=== PATIENT | male | born 1940 | race Caucasian/White ===

== ENCOUNTER 2023-01-17 23:42 | Emergency (ER) | payer MEDICARE, SELFPAY ==
--- NOTE | ~2023-01-17 | XR_ITS ---
EXAMINATION: XR CHEST CLINICAL INFORMATION: Epigastric pain COMPARISON: 09/18/2014 TECHNIQUE: 2 views of the chest were obtained. FINDINGS: Lung volumes are symmetric. Scattered calcifications are redemonstrated bilaterally which are most suggestive of calcified pleural plaques. No focal consolidation is seen. No evidence of pneumothorax, pleural effusion, or pulmonary edema. Cardiac size is within normal limits. Calcification is present at the aortic arch. No acute osseous findings are seen. XR/XR chest 2V IMPRESSION: No acute cardiopulmonary findings. 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
--- NOTE | ~2023-01-17 | CT_ITS ---
EXAMINATION: CT ABDOMEN AND PELVIS WITHOUT CONTRAST CLINICAL INFORMATION: Right-sided abdominal pain COMPARISON: None available. TECHNIQUE: Multidetector volumetric imaging was performed from the superior aspect of the liver through the pubic symphysis. Sagittal and coronal reformatted images were obtained on the technologist's workstation. This CT examination was performed using dose optimization techniques as appropriate, variously including the following: *Automated exposure control *Adjustment of mA and/or kV according to patient size (this includes techniques or standardized protocols for targeted exams where dose is matched to indication/reason for exam; i.e. extremities or head) *Use of iterative reconstruction technique DLP: 849 mGy-cm FINDINGS: LUNG BASES: Scattered partially calcified pleural plaques noted. There is mild nodularity bilaterally suggesting impacted airways. Coronary artery calcifications are present. LIVER, GALLBLADDER, AND BILIARY TREE: The liver is normal in size, shape, and attenuation. No focal hepatic lesion or biliary ductal dilatation is identified on this noncontrast exam. The gallbladder is unremarkable with no evidence of radiopaque gallstones, gallbladder wall thickening, or obvious pericholecystic inflammatory changes. PANCREAS: Partially atrophic. SPLEEN: Unremarkable. ADRENAL GLANDS: Unremarkable. KIDNEYS AND URETERS: No hydronephrosis or obstructing calculus bilaterally. Left renal cysts noted; no follow-up recommended. BLADDER: Unremarkable. GASTROINTESTINAL TRACT: No evidence of bowel obstruction. Colonic diverticulosis is noted. No significant bowel wall thickening is seen. The appendix is unremarkable. No free fluid or free air is seen. ABDOMINAL WALL: Small fat-containing inguinal hernias. Rectus diastases noted including focal small bowel protrusion at the umbilicus. LYMPH NODES: Normal. VASCULAR: There is atherosclerotic calcification along the aorta and iliac arteries. 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 PELVIC VISCERA: Enlarged prostate gland measures approximately 5.7 cm in transverse dimension. OSSEOUS STRUCTURES: Degenerative changes are noted in the spine. 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 CT/CT abdomen pelvis wo IV con IMPRESSION: No acute findings identified in the abdomen/pelvis. Colonic diverticulosis without diverticulitis. Enlarged prostate gland.
[2023-01-17 23:54] VITALS: BP 133/69; PULSE 65; RESP 20; TEMP 36.4; O2SAT 98; BMI 27.1
--- NOTE | 2023-01-17 23:59 | ECG_ITS ---
Test Reason : CHEST PAIN Blood Pressure : / mmHG Vent. Rate : 065 BPM Atrial Rate : 065 BPM P-R Int : 210 ms QRS Dur : 096 ms QT Int : 424 ms P-R-T Axes : 027 -40 032 degrees QTc Int : 440 ms Sinus rhythm with 1st degree A-V block with with junctional escape beat Left axis deviation Inferior infarct , age undetermined Abnormal ECG No previous ECGs available Referred By: Generic ED Physician Electronically Signed By:LISA JACKSON MD
[2023-01-18 00:20] LABS: MANUAL DIFF FLAG NO
[2023-01-18 00:23] LABS: Basophils Absolute Auto 0.1 X10*3/uL (0.0-0.2); Basophils Percent Auto 0.8 % (0-2); Eosinophils Absolute Auto 0.3 X10*3/uL (0.0-0.4); Eosinophils Percent Auto 5.5 % (0-4); Hematocrit 37.2 % (42.0-52.0); Hemoglobin 12.2 g/dl (14.0-18.0); Imm Gran Abs Auto 0.02 X10*3/uL (0.00-0.03); Imm Gran Pct Auto 0.3 % (0.0-0.4); Lymphocytes Percent Auto 49.4 % (20-40); Mean Corpuscular HGB Conc 32.8 g/dl (31.0-36.0); Mean Corpuscular Volume 88.4 fL (80.0-98.0); Mean Platelet Volume 8.3 fL (9.4-12.4); Monocytes Absolute Auto 0.5 X10*3/uL (0.1-1.2); Monocytes Percent Auto 8.7 % (2-11); Neutrophils Absolute Auto 2.1 x10*3/uL (2.0-8.3); Neutrophils Percent Auto 35.3 % (45-73); Platelet Count 293 X10*3/uL (160-400); Red Blood Count 4.21 X10*6/uL (4.60-5.80); Red Cell Distribution Width 15.2 % (11.0-16.0)
[2023-01-18 00:38] VITALS: BP 127/67; PULSE 76; RESP 19; TEMP 37.1; O2SAT 97
[2023-01-18 00:43] LABS: Alanine Aminotransferase 10 U/L (0-40); Albumin Level 4.3 g/dL (3.5-5.0); Alkaline Phosphatase 95 U/L (39-117); Anion Gap 17 (12-20); Aspartate Amino Transferase 13 U/L (5-37); Bilirubin Direct 0.2 mg/dL (0.0-0.5); Bilirubin Total 0.6 mg/dL (0.0-1.0); Blood Urea Nitrogen 22 mg/dL (9-16); Calcium 9.2 mg/dL (8.4-10.2); Carbon Dioxide 22 mmol/L (22-29); Chloride 103 mmol/L (96-108); Creatinine Clr Calc Pharmacy 42.4; Estimated Glomerular Filt Rate 50; Glucose Random 159 mg/dL (60-115); Lipase 24 U/L (8-78); Potassium 4.9 mmol/L (3.3-5.1); Sodium 137 mmol/L (135-145); Total Protein 8.2 g/dL (6.5-8.0)
[2023-01-18 00:50] LABS: Troponin-I High Sensitivity 2.8 ng/L (<3.5-35.0)
--- NOTE | 2023-01-18 00:58 | ED.ABDPAIN ---
HPI - Abdominal Pain General Chief Complaint: Abdominal Pain Stated Complaint: Back/Abdominal Pain Time Seen by Provider: 01/18/23 00:49 Source: patient and family (Spouse) Mode of arrival: ambulatory Limitations: no limitations History of Present Illness HPI narrative: 82-year-old male came in for evaluation of upper abdominal pain for 2 day. Pain is intermittent described as crampy pain mostly to the right upper quadrant area, patient had similar pain about 40 years ago was told his gallbladder, abdominal pain started today after drinking milk and eating peanut butter sandwich. Pain is not associated with nausea or vomiting, no shortness of breath, associated with chest pain burning sensation, no sick contact, no diarrhea normal bowel movement was this morning. Related Data Allergies Allergy/AdvReac Type Severity Reaction Status Date / Time No Known Allergies Allergy Verified 01/17/23 23:57 Review of Systems Review of Systems All other systems are reviewed and are negative Constitutional: Reports as per HPI and Reports no additional constitutional complaints Eyes: Reports as per HPI and Reports no additional eye complaints Reports system reviewed and no additional complaints, except as documented Cardiovascular: Reports as per HPI and Reports no additional cardiovascular complaints Respiratory: Reports as per HPI and Reports no additional respiratory complaints Gastrointestinal: Reports as per HPI and Reports no additional gastrointestinal complaints Genitourinary: Reports no additional female genitourinary complaints Musculoskeletal: Reports no additional musculoskeletal complaints Skin/Breast: Reports system reviewed and no additional complaints, except as docu Psychiatric: Reports no additional psychiatric complaints Endocrine: Reports no additional endocrine complaints Hematologic/Lymphatic: Reports no additional hematologic/lymphatic complaints Allergic/Immunologic: Reports no additional allergic/immunologic complaints Reports system reviewed and no additional complaints, except as documented and Reports Abnormal speech present [facility] Social History Social History Advance Directives: No Advance Directives Information Provided: No Physical Exam ED Vital Signs: Vital Signs - 24 hr 01/17/23 23:54 01/18/23 00:38 01/18/23 03:34 Temperature 97.6 F 98.7 F Pulse Rate 65 76 59 Respiratory Rate 20 19 13 Blood Pressure 133/69 127/67 109/62 Pulse Oximetry 98 97 97 Oxygen Delivery Method Room Air Room Air Room Air BMI result Body Mass Index 27.1 Vital signs have been reviewed as appeared to be correct. Blood pressure normal. Heart rate normal. Respiration rate normal. Temperature normal. Oxygen saturation normal. Appearance: Alert. Oriented X3. No acute distress. Head: Normal external exam. Normocephalic. Atraumatic. No Steel signs noted. No raccoon eyes noted Eyes: PERRLA. EOMI. Conjunctiva and sclera normal. Eyelids normal. ENT: TM's Normal. Pharynx normal. Uvula midline. Moist mucous membranes. No trismus noted. No drooling noted. No muffled voice noted. Neck: Normal inspection. Neck supple. FROM. No adenopathy. Thyroid Normal. No meningeal signs. No neck mass noted. CVS: Normal heart rate and rhythm. Heart sound normal. No murmurs noted. Pulses normal throughout. Respiratory: No respiratory distress. Painless inspiration. Breath sounds normal. No wheezes/rales/rhonchi noted. Chest nontender. No accessory muscle usage noted or decreased air movement noted. Abdomen: Soft and nontender. Bowel sounds normal in all 4 quadrants. No distention noted. No organomegaly noted. No visible injury noted. Back: No CVA tenderness. Full range of motion noted. Skin: Skin warm and dry. Normal skin color. Normal skin turgor. No rashes/lesions/lacerations noted. Extremities: No lower extremity edema. Extremities exhibit normal range of motion. Extremities nontender. Neuro: Oriented X 3. Cranial nerve exam: II-XII are grossly intact No motor deficit. No sensory deficit. Reflexes normal. Course Course Course Narrative: Right-sided abdominal pain, unremarkable labs, non revealing CT of the abdomen and pelvis, patient has no symptoms now able to tolerate p.o. intake in the emergency department. Medical Decision Making Differential Diagnosis Differential Diagnoses: The differential diagnosis associated with the presentation includes (Appendicitis, cholecystitis, pancreatitis, colitis, diverticulitis, electrolytes abnormalities, severe anemia, kidney stones, UTI.) Admission/Observation Consideration of admission/observation: Escalation of care including admission/observation considered Lab Data MDM Lab Attestation statement: I reviewed the patient's lab results. 01/18/23 00:15 01/18/23 00:15 Labs: Lab Results 01/18/23 01/18/23 01/18/23 Range/Units 00:15 00:15 00:15 WBC 6.0 (4.8-10.8) X10*3/uL RBC 4.21 L (4.60-5.80) X10*6/uL Hgb 12.2 L (14.0-18.0) g/dl Hct 37.2 L (42.0-52.0) % MCV 88.4 (80.0-98.0) fL MCH 29.0 (27.0-33.0) pg MCHC 32.8 (31.0-36.0) g/dl RDW 15.2 (11.0-16.0) % Plt Count 293 (160-400) X10*3/uL MPV 8.3 L (9.4-12.4) fL Immature Gran % (Auto) 0.3 (0.0-0.4) % Neut % (Auto) 35.3 L (45-73) % Lymph % (Auto) 49.4 H (20-40) % [place] % (Auto) 8.7 (2-11) % Eos % (Auto) 5.5 H (0-4) % Baso % (Auto) 0.8 (0-2) % Lymph # (Auto) 3.0 (1.2-4.9) X10*3/uL [place] # (Auto) 0.5 (0.1-1.2) X10*3/uL Eos # (Auto) 0.3 (0.0-0.4) X10*3/uL Baso # (Auto) 0.1 (0.0-0.2) X10*3/uL Abs Immat Gran (auto) 0.02 (0.00-0.03) X10*3/uL Absolute Neuts (auto) 2.1 (2.0-8.3) x10*3/uL Absolute Nucleated RBC 0.000 (0.0-0.012) X10*3/uL Nucleated RBC % (auto) 0.0 (0.0-0.2) /100WBC Sodium 137 (135-145) mmol/L Potassium 4.9 (3.3-5.1) mmol/L Chloride 103 (96-108) mmol/L Carbon Dioxide 22 (22-29) mmol/L Anion Gap 17 (12-20) BUN 22 H (9-16) mg/dL Creatinine 1.36 (0.5-1.4) mg/dL Estim Creat Clear Calc 42.4 Estimated GFR 50 Random Glucose 159 H (60-115) mg/dL Calcium 9.2 (8.4-10.2) mg/dL Total Bilirubin 0.6 (0.0-1.0) mg/dL Direct Bilirubin 0.2 (0.0-0.5) mg/dL AST 13 (5-37) U/L ALT 10 (0-40) U/L Alkaline Phosphatase 95 (39-117) U/L Troponin I High Sens 2.8 (<3.5-35.0) ng/L Total Protein 8.2 H (6.5-8.0) g/dL Albumin 4.3 (3.5-5.0) g/dL Lipase 24 (8-78) U/L Urine Color Urine Appearance Urine pH (5.0-9.0) Ur Specific [place] (1.005-1.025) Urine Protein (Neg-Trace) mg/dL Urine Glucose (UA) (Negative) mg/dL Urine Ketones (Negative) mg/dL Urine Blood (Negative) Urine Nitrite (Negative) Ur Leukocyte Esterase (Negative) Urine RBC (0-2) /HPF Urine WBC (0-5) /HPF Ur Squamous Epith Cells (0-2) /HPF Urine Bacteria (None Seen) Hyaline Casts (0-2) /LPF 01/18/23 Range/Units 03:58 WBC (4.8-10.8) X10*3/uL RBC (4.60-5.80) X10*6/uL Hgb (14.0-18.0) g/dl Hct (42.0-52.0) % MCV (80.0-98.0) fL MCH (27.0-33.0) pg MCHC (31.0-36.0) g/dl RDW (11.0-16.0) % Plt Count (160-400) X10*3/uL MPV (9.4-12.4) fL Immature Gran % (Auto) (0.0-0.4) % Neut % (Auto) (45-73) % Lymph % (Auto) (20-40) % [place] % (Auto) (2-11) % Eos % (Auto) (0-4) % Baso % (Auto) (0-2) % Lymph # (Auto) (1.2-4.9) X10*3/uL [place] # (Auto) (0.1-1.2) X10*3/uL Eos # (Auto) (0.0-0.4) X10*3/uL Baso # (Auto) (0.0-0.2) X10*3/uL Abs Immat Gran (auto) (0.00-0.03) X10*3/uL Absolute Neuts (auto) (2.0-8.3) x10*3/uL Absolute Nucleated RBC (0.0-0.012) X10*3/uL Nucleated RBC % (auto) (0.0-0.2) /100WBC Sodium (135-145) mmol/L Potassium (3.3-5.1) mmol/L Chloride (96-108) mmol/L Carbon Dioxide (22-29) mmol/L Anion Gap (12-20) BUN (9-16) mg/dL Creatinine (0.5-1.4) mg/dL Estim Creat Clear Calc Estimated GFR Random Glucose (60-115) mg/dL Calcium (8.4-10.2) mg/dL Total Bilirubin (0.0-1.0) mg/dL Direct Bilirubin (0.0-0.5) mg/dL AST (5-37) U/L ALT (0-40) U/L Alkaline Phosphatase (39-117) U/L Troponin I High Sens (<3.5-35.0) ng/L Total Protein (6.5-8.0) g/dL Albumin (3.5-5.0) g/dL Lipase (8-78) U/L Urine Color Yellow Urine Appearance Clear Urine pH 5.5 (5.0-9.0) Ur Specific [place] 1.020 (1.005-1.025) Urine Protein Negative (Neg-Trace) mg/dL Urine Glucose (UA) >=1000 H (Negative) mg/dL Urine Ketones Negative (Negative) mg/dL Urine Blood Negative (Negative) Urine Nitrite Negative (Negative) Ur Leukocyte Esterase Negative (Negative) Urine RBC 0-2 (0-2) /HPF Urine WBC 0-5 (0-5) /HPF Ur Squamous Epith Cells 0-2 (0-2) /HPF Urine Bacteria None Seen (None Seen) Hyaline Casts 3-5 (0-2) /LPF Independent Interpretation I performed an independent interpretation of an: CT Scan (Abdomen and pelvis: No acute intra-abdominal pathology.) Radiology Impression Discussion of test interpretation with radiology: I have reviewed the radiologist's reading. Discharge Plan Discharge Clinical Impression: Abdominal pain Patient Disposition: Home, Self-Care Instructions: Abdominal Pain (ED) Referrals: Penelope Fletcher [employer] [Primary Care Provider] -
[2023-01-18 03:34] VITALS: BP 109/62; PULSE 59; RESP 13; O2SAT 97
--- NOTE | 2023-01-18 03:49 | PC.NURSE ---
pt waiting patiently for ultrasound which is schedule at 0700
[2023-01-18 04:26] LABS: Appearance Urine Clear; Color Urine Yellow; Glucose Urine UA >=1000 mg/dL (Negative); Leukocyte Esterase Urine Negative (Negative); Nitrite Urine Negative (Negative); PH 5.5 (5.0-9.0); UMIC TRIGGER UACC YES; Urine Blood Negative (Negative); Urine Ketones Negative (Negative); Urine Protein Negative (Neg-Trace)
[2023-01-18 04:31] LABS: Bacteria Urine None Seen (None Seen); RBC Urine 0-2 /HPF (0-2); Squamous Epithelial Cell Urine 0-2 /HPF (0-2); WBC Urine 0-5 /HPF (0-5)
== END 2023-01-18 06:00 | disposition home or self-care (01) ==
PROVIDERS: Emergency Provider Emergency Medicine; PCP Nurse Practitioner Family
DX: R10.9 Unspecified abdominal pain (principal)
CPT/HCPCS: 36415; 71046; 74176; 80048; 80076; 81001; 83690; 84484; 85025; 93005; 99284

== ENCOUNTER 2023-05-24 18:16 | Emergency (ER) | payer MEDICARE, SELFPAY ==
[2023-05-24 18:35] VITALS: BP 104/69; PULSE 127; RESP 14; TEMP 36.8; O2SAT 98; BMI 26.8
[2023-05-24 19:16] VITALS: BP 118/83; PULSE 122; RESP 16; TEMP 36.9; O2SAT 97
--- NOTE | 2023-05-24 20:12 | MHC.EDTECH ---
This tech assumed care of patient at 1900, hourly rounds and vitals completed. Blood Cultures were obtained and sent to lab.Patient unable to give a urine sample at this time will re-attempt.
[2023-05-24 21:43] VITALS: BP 128/84; PULSE 97; RESP 18; TEMP 37.6; O2SAT 98
--- NOTE | 2023-05-24 21:44 | MHC.EDTECH ---
Hourly rounds and vitals completed, patient's temp is up to 99.7 RN Chong was made aware. Family at bedside and call ledesma within reach
--- NOTE | 2023-05-24 22:53 | ED.ABDPAIN ---
HPI - Abdominal Pain General Chief Complaint: Abdominal Pain Stated Complaint: constipation Time Seen by Provider: 05/24/23 19:26 Source: patient and family Mode of arrival: ambulatory History of Present Illness HPI narrative: This is an 83-year-old male who reports 6 days without a bowel movement which is not entirely new to him, however patient states that he cannot sit and that his known hemorrhoids are significantly inflamed and attempting to have a bowel movement makes it worse. He denies any associated fevers, chills, nausea or vomiting. Patient did tolerate lunch. Related Data Previous Rx's Medication Instructions Recorded amoxicillin 875 mg-potassium 1 tab PO BID 7 days #14 tabs 05/24/23 clavulanate 125 mg tablet Allergies Allergy/AdvReac Type Severity Reaction Status Date / Time No Known Allergies Allergy Verified 01/17/23 23:57 Review of Systems Review of Systems Pertinent positives and negatives as stated in HPI PMFSH Past Medical History Source: nursing notes reviewed Social History Social History Alcohol intake: never Smoked in Last 30 Days: No Use of substances other than those prescribed or required for medical reasons: No Advance Directives: No Advance Directives Information Provided: No Physical Exam ED Vital Signs: Vital Signs - 24 hr 05/24/23 18:35 05/24/23 19:16 05/24/23 21:43 Temperature 98.3 F 98.5 F 99.7 F Pulse Rate 127 H 122 H 97 Respiratory Rate 14 16 18 Blood Pressure 104/69 118/83 128/84 Pulse Oximetry 98 97 98 Oxygen Delivery Method Room Air Room Air 05/24/23 23:14 Temperature 99.2 F Pulse Rate 109 H Respiratory Rate 18 Blood Pressure 146/74 H Pulse Oximetry 98 Oxygen Delivery Method Room Air BMI result Body Mass Index 26.8 VITAL SIGNS: Reviewed. GENERAL: Well developed, well nourished, in no acute distress. HEAD: Normocephalic/atraumatic EYES: PERRLA, EOMI EARS: Ext canals without abnormality NOSE: Nares patent bilateral OROPHARYNX: no oral lesions noted, posterior pharynx clear NECK: Supple, no adenopathy LUNGS: Normal breath sounds. No adventitious sounds or accessory muscle use. SpO2<98> CARDIOVASCULAR: Regular rate and rhythm without noted murmurs ABDOMEN: Soft, mild tenderness in left lower quadrant, non-distended with bowel sounds. MUSCULOSKELETAL: No tenderness, deformities, or effusions noted on gross inspection. EXTREMITIES: No cyanosis, clubbing or edema. SKIN: Inspection of the skin reveals no rashes NEUROLOGIC: Alert and oriented x 4. Strength and sensation to light touch were grossly intact x 4. Procedures Rectal Disimpaction Time out performed rectal disimpaction: No Indication: fecal impaction Procedural Sedation: No Sedation/Analgesia: none Technique: manual disimpaction with gloved finger Result: significant stool output Patient Tolerated Procedure: well Complications: bleeding (Trace hemorrhoidal bleeding with the procedure) Medical Decision Making Medical Decision Making MDM Narrative: 83-year-old male with history and clinical presentation, DDX: Constipation, Diverticulitis, obstruction, renal colic I reviewed all investigations and hematologic indices demonstrate a leukocytosis with left shift, stable normocytic anemia and no thrombocytopenia. Chemistry indices without JAMAL and no electrolyte or liver enzyme abnormalities. CT scan demonstrates stercoral proctitis. There is a leukocytosis without elevated temperature and will be treated with antibiotics at this time. Manual disimpaction was conducted and there was removal of significant amount of stool from the rectal vault with trace hemorrhoidal bleeding that was transient, will follow up with enema and see if more stool can be evacuated. Patient was able to tolerate a 1000 mL of enema solution, he was able to evacuate copious amounts of stool matter and states that he feels much better and wishes to go home. Heart rate has improved, he will be given initial antibiotics here and then discharged with remaining course and given strict return precautions and instructions to add MiraLax to his bowel regimen. Differential Diagnosis Differential Diagnoses: The differential diagnosis associated with the presentation includes Please see the discussion above Admission/Observation Consideration of admission/observation: Escalation of care including admission/observation considered Please see the discussion above Lab Data MDM Lab Attestation statement: I reviewed the patient's lab results. Please see the discussion above 05/24/23 18:49 05/24/23 18:49 Labs: Lab Results 05/24/23 Range/Units 18:49 WBC 12.7 H (4.8-10.8) X10*3/uL RBC 4.56 L (4.60-5.80) X10*6/uL Hgb 13.2 L (14.0-18.0) g/dl Hct 39.6 L (42.0-52.0) % MCV 86.8 (80.0-98.0) fL MCH 28.9 (27.0-33.0) pg MCHC 33.3 (31.0-36.0) g/dl RDW 16.1 H (11.0-16.0) % Plt Count 305 (160-400) X10*3/uL MPV 8.3 L (9.4-12.4) fL Immature Gran % (Auto) 0.6 H (0.0-0.4) % Neut % (Auto) 74.4 H (45-73) % Lymph % (Auto) 18.3 L (20-40) % [place] % (Auto) 4.7 (2-11) % Eos % (Auto) 1.6 (0-4) % Baso % (Auto) 0.4 (0-2) % Lymph # (Auto) 2.3 (1.2-4.9) X10*3/uL [place] # (Auto) 0.6 (0.1-1.2) X10*3/uL Eos # (Auto) 0.2 (0.0-0.4) X10*3/uL Baso # (Auto) 0.1 (0.0-0.2) X10*3/uL Abs Immat Gran (auto) 0.07 H (0.00-0.03) X10*3/uL Absolute Neuts (auto) 9.5 H (2.0-8.3) x10*3/uL Absolute Nucleated RBC 0.000 (0.0-0.012) X10*3/uL Nucleated RBC % (auto) 0.0 (0.0-0.2) /100WBC Sodium 136 (135-145) mmol/L Potassium 4.5 (3.3-5.1) mmol/L Chloride 102 (96-108) mmol/L Carbon Dioxide 20 L (22-29) mmol/L Anion Gap 19 (12-20) BUN 21 H (9-16) mg/dL Creatinine 1.19 (0.5-1.4) mg/dL Estim Creat Clear Calc 47.7 Estimated GFR 58 Random Glucose 179 H (60-115) mg/dL Calcium 9.5 (8.4-10.2) mg/dL Magnesium 2.3 (1.6-2.6) mg/dL Total Bilirubin 0.7 (0.0-1.0) mg/dL Direct Bilirubin 0.3 (0.0-0.5) mg/dL AST 15 (5-37) U/L ALT 10 (0-40) U/L Alkaline Phosphatase 95 (39-117) U/L Total Protein 8.3 H (6.5-8.0) g/dL Albumin 4.4 (3.5-5.0) g/dL Lipase 15 (8-78) U/L Independent Interpretation I performed an independent interpretation of an: EKG Interpretation: Sinus tachycardia with first-degree AV block (at baseline), no STEMI, HR-109, QRS/QTC are within normal limits. Radiology Impression Discussion of test interpretation with radiology: I have reviewed the radiologist's reading. External Record Review External record reviewed: Outpatient record and Prior outpatient radiology Medications Administered Discontinued Medications Generic Name Dose Route Start Last Admin Trade Name Freq PRN Reason Stop Dose Admin Lidocaine HCl 10 ml 05/24/23 20:29 05/24/23 21:45 Lidocaine Hcl 2 % Urojet 10 Ml Jel.Pf.Lou TOPICAL 05/24/23 20:30 10 ml ONCE ONE Administration Discharge Plan Discharge Clinical Impression: Constipation, Stercoral colitis Patient Disposition: Home, Self-Care Instructions: Constipation (ED), High Fiber Diet (ED) Additional Instructions: 1. Resume all home medications as prescribed. 2. Recommend that you add MiraLax to your medications that you take for constipation. 3. Complete the entire course of antibiotics as provided. 4. Follow-up with your primary care doctor on Saturday morning. Do not hesitate to return to the emergency room should you develop significant rectal bleeding, severe up Doppler rule pain. Prescriptions: New amoxicillin-pot clavulanate 875-125 mg tablet 1 tab PO BID 7 Days Qty: 14 0RF Referrals: Penelope Fletcher NP [Primary Care Provider] -
[2023-05-24 23:14] VITALS: BP 146/74; PULSE 109; RESP 18; TEMP 37.3; O2SAT 98
--- NOTE | 2023-05-24 23:14 | MHC.EDTECH ---
Hourly rounds and vitals completed, patient's temp is 99.2 and heart rate is 109 RN Karen aware. Patient ambulated to bathroom with a steady gait. patient stated I had a huge bowel movement I'm empty . RN was made aware
== END 2023-05-25 00:36 | disposition home or self-care (01) ==
PROVIDERS: Emergency Provider Student in an Organized Health Care Education/Training Program; PCP Nurse Practitioner Family
DX: K59.00 Constipation, unspecified (principal); K62.6 Ulcer of anus and rectum; K57.30 Diverticulosis of large intestine without perforation or abscess without bleeding
CPT/HCPCS: 36415; 74176; 80048; 80076; 83690; 83735; 85025; 87040; 93005; 99284; 99285

== ENCOUNTER 2023-08-06 17:36 | Emergency (ER) | payer MEDICARE, SELFPAY ==
[2023-08-06 17:56] VITALS: BP 150/66; PULSE 72; RESP 18; TEMP 36.8; O2SAT 96; BMI 27.6
--- NOTE | 2023-08-06 18:00 | ED_ITS ---
HPI - General Adult General Chief complaint: Eye Problems Stated complaint: right pain swollen Time Seen by Provider: 08/06/23 19:29 Source: patient Mode of arrival: ambulatory Limitations: no limitations History of Present Illness HPI narrative: Patient is an 83 old male presents emergency department for evaluation of double vision in blood to the right eye. He states that approximately 17:00, he was looking down while eating dinner when he suddenly felt as though he was seeing double and felt pressure to that eye. He does state that just prior to this he was taking a nap on the couch and she was lying his face down on the couch. He reports that he takes a baby aspirin daily, and does state that he had lens implants 6-7 years ago with cataracts. He denies headache, dizziness, lightheadedness, any known ocular or head trauma. Does not were contact lenses. Related Data Previous Rx's Medication Instructions Recorded amoxicillin 875 mg-potassium 1 tab PO BID 7 days #14 tabs 05/24/23 clavulanate 125 mg tablet Allergies Allergy/AdvReac Type Severity Reaction Status Date / Time No Known Allergies Allergy Verified 05/28/23 07:18 Review of Systems Review of Systems: Yes all other systems are reviewed and are negative [facility] Social History Social History (System 05/28/23 @ 07:18 by Erlinda Sampson) Alcohol intake: never Advance Directives: No Advance Directives Information Provided: No Physical Exam ED Vital Signs: Vital Signs - 24 hr 08/06/23 17:56 08/06/23 19:29 Temperature 98.2 F 97.1 F Pulse Rate 72 64 Respiratory Rate 18 16 Blood Pressure 150/66 H 147/70 H Pulse Oximetry 96 Oxygen Delivery Method Room Air Room Air BMI result Body Mass Index 27.6 Appearance: Alert.?Oriented to person, place and time. No acute di stress.?Normal affect. Eyes: Pupils equal, round and reactive to light.? Right subconjunctival hemorrhage with hematoma by medial canthus. Right intra-ocular pressure of 14, left ocular pressure of 10. ENT: Pharynx normal.?? Neck: Normal inspection.? Neck supple.?? CVS: Heart sounds normal. Normal heart rate and rhythm.? Pulses normal.?? Respiratory: No respiratory distress.? Lung sounds clear to auscultation bilaterally?? Abdomen: Soft and non-tender. Normoactive bowel sounds. Skin: Skin warm and dry.? Normal skin color.? Extremities: No lower extremity edema.? Neuro: Moves all extremities spontaneously. Sensation intact bilaterally. CN II- XII intact. No focal neuro deficits. Ambulates with normal steady gait. Course Course Course Narrative: RME- 83 year old male presents for evaluation of right eye pain and redness. On exam he has a conjunctiva hematoma. He denies any trauma. Reports history of cataract surgery to that eye. Medical Decision Making Medical Decision Making MDM Narrative: Patient is an 83 male who presents emergency department for evaluation of right eye concern as per HPI. Examination is consistent with a subconjunctival hemorrhage with hematoma formation, normal intra-ocular pressures, atraumatic in nature. EOMI. No nystagmus. no hyphema. Negative Nahomi sign. Not consistent with globe rupture, glaucoma. Reviewed this case with ED attending Dr. Disla, agrees with the following plan of care, discharge home, for self resolution over the next 2-3 weeks. Reviewed worrisome signs and symptoms that would warrant re-evaluation emergency department. All questions answered. Differential Diagnosis Differential Diagnoses: The differential diagnosis associated with the presentation includes (As noted above) Admission/Observation Consideration of admission/observation: Escalation of care including admission/observation considered (See narrative above) Independent Historian Clinical information obtained from an independent historian. History obtained from or confirmed by: Spouse (Present who confirms history) External Record Review External record reviewed: Prior outpatient labs Discharge Plan Discharge Clinical Impression: Subconjunctival hemorrhage Patient Disposition: Home, Self-Care Instructions: Subconjunctival Hemorrhage (ED) Additional Instructions: Your examination is consistent with a subconjunctival hemorrhage, this is a collection of blood under the conjunctiva on to the Rajani covers the part of the eye. The pressures of your eye are normal which is very reassuring. Patient apply cold compresses over the 1st 48 hours for 10-15 minutes 3-4 times daily. This typically takes approximately 2-3 weeks to resolve. This if you start to develop pain, light sensitivity, worsening vision changes, discharge from the eye including white or yellow discharge, blood or any new concerning symptoms condition return Pap re-evaluation you may also follow-up with your eye doctor, but again please be aware that this can take 2-3 weeks to resolve. Prescriptions: No Action amoxicillin-pot clavulanate 875-125 mg tablet 1 tab PO BID 7 Days Qty: 14 0RF Referrals: Penelope Fletcher NP [Primary Care Provider] -
[2023-08-06 19:29] VITALS: BP 147/70; PULSE 64; RESP 16; TEMP 36.2
== END 2023-08-06 21:19 | disposition home or self-care (01) ==
PROVIDERS: Emergency Provider Internal Medicine; PCP Nurse Practitioner Family
DX: H11.31 Conjunctival hemorrhage, right eye (principal); H53.2 Diplopia
CPT/HCPCS: 99282

== ENCOUNTER 2024-07-02 07:24 | Outpatient (AMB) | payer MEDICARE, SELFPAY ==
--- NOTE | 2024-07-02 07:26 | MHC.OFFVIS ---
Vital Signs 07/02/24 07:36 Height 5 ft 10 in Weight 178 lb 12.718 oz BMI 25.7 BP 115/60 Blood Pressure Location Lt brachial Position Sitting Respiration 16 Pulse 91 Pulse Source Pulse Oximeter Pulse Oximetry (%) 98 Oxygen Delivery Method Room Air Intake Visit Reasons: oa Intake Note: Patient presents for OA. 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 For the past several years he has been having polyarticular joint pain involving his knees, shoulders, hands, and feet. He denied recurrent monoarticular arthritis involving the toes or the wrists. He is currently following with Orthopedics and receives gel injections every 3-4 months. Patient does not want knee replacement. He was told that he is currently bone on bone in both his knees. Particularly bothering him today is bilateral shoulders and bilateral knees. His shoulder pain makes it difficult for him to dress himself in the morning. No known family history of autoimmune disease Denies stiffness in the muscles of the shoulder or the thigh/hip. 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 Pleural plaque Pneumonia Echocardiogram abnormal Umbilical hernia 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 Polyp of nasal cavity Osteoarthritis of both knees Osteoarthritis of both hands Onychomycosis Undescended left testicle Left ventricular hypertrophy Low vitamin B12 level Insomnia Hard of hearing Glenohumeral arthritis Glaucoma Fatty liver Hyperlipidemia Disorder of rotator cuff of both shoulders CKD stage G2/A2, GFR 60-89 and albumin creatinine ratio 30-299 mg/g CKD (chronic kidney disease) Chronic rhinitis Chronic back pain Chronic anemia Carpal tunnel syndrome Benign essential HTN Asthma Aortic valve stenosis Anxiety Family History (Updated 07/02/24 @ 07:34 by GISELLE Sutherland) Father History of arthritis Social History (Updated 07/02/24 @ 07:35 by GISELLE Sutherland) Household Members: Spouse Housing: House Alcohol intake: former Patient Tobacco Use Status: Former Tobacco user Years Smoked: 30 Review of Systems Const Details: Review of Systems Constitutional: Denies fever, chills, weight loss ENT: Denies vision changes, eye pain or eye redness, dental caries, dry mouth GI: Denies nausea, vomiting, diarrhea, abdominal pain, change in BM Pulm: Denies SOB, MELENDEZ, hemoptysis, wheezing Cards: Denies chest pain, palpitations Skin: Denies Raynaud's, rash, nail changes, photosensitivity, SYSTEMS CONSULTANT: Denies headaches, weakness, paresthesias, recurrent falls MSK: as per HPI All other systems reviewed and are unremarkable except noted above Physical Exam Vital Signs: Last Vital Signs Pulse 91 07/02/24 07:36 Resp 16 07/02/24 07:36 BP 115/60 07/02/24 07:36 Pulse Ox 98 07/02/24 07:36 Oxygen Delivery Method Room Air 07/02/24 07:36 BMI result Body Mass Index 25.7 Physical Examination CONSTITUITIONAL Patient alert and cooperative. Well appearing and in no apparent painful distress Bitemporal wasting Wasting noted to the thenar eminence bilaterally Wasting noted to the abductor pollicis brevis but not enough to cause a split hand syndrome HEENT Conjunctiva and sclera clear. ?Pupils equal round and reactive to light. ?No lymphadenopathy. ?Normal dentition. No oral or nasal ulcers noted. No evidence of discoid rash to the mahad of ears CHEST/RESPIRATORY SYSTEM Normal respiratory effort and able to speak in complete sentences. ?Clear to auscultation bilaterally. ?No crackles, rales, rhonchi, wheezes heard. CARDIAC SYSTEM Regular rate and rhythm. ?Loud systolic murmur heard throughout pericardium MSK Hands: ?Diabetic cheiroarthropathy - positive prayer hand sign. Prominent Heberden nodes throughout bilateral hands on the DIPs. Prominent 2nd MCP joint without evidence of synovitis. Wrists: ?Full range of motion at the wrists without pain. ?No tenderness to palpation or synovitis noted to the wrists. Elbows: Full range of motion without pain. No tenderness, weakness, swelling, increased warmth or erythema. Shoulders: Patient has full range of motion to passive movement however active movement is limited. Tenderness to palpation of the AC joint Hips: Full range of motion without pain. Hip bursa: No tenderness to palpation Knees: ?Full range of motion. ?No tenderness, swelling, increased warmth or erythema. Bilateral crepitation Ankles: Full range of motion. ?No tenderness, swelling, increased warmth or erythema.? Feet: ?Negative squeeze test. ?No tenderness to palpation or swelling of the MTPs. Tender points:??No tenderness to palpation of the neck, shoulders, chest, elbows, hips, buttocks or knees. SKIN Skin intact without rashes. Results Reviewed Results Reviewed: No recent blood work to review. Assessment & Plan Assessment & Plan (1) Polyarticular osteoarthritis: Code(s): M15.9 - Polyosteoarthritis, unspecified Category: Medical Plan: #Bilateral AC joint OA History and examination is consistent with osteoarthritis. Patient received bilateral AC joint steroid injections today. We will still check for underlying PMR, he is at the correct age for this. #Bilateral Hand OA Bilateral hand OA with diabetic cheiroarthropathy. Send to Occupational therapy. We will also check RF and CCP #Bilateral Knee OA Bilateral knee OA. Currently following up with orthopedic for gel injections and next appointment is August. We will send to physical therapy. 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 We will consider sending him for an EMG in the future if complaints of numbness or tingling Plan I spent 60 minutes reviewing the record and labs, seeing the patient, discussing the treatment plan and documenting in the medical record ? Orders: Orders Comprehensive Met. Panel Today E11.618 - Type 2 diabetes mellitus with other diabetic arthropathy, M15.9 - Polyosteoarthritis, unspecified C Reactive Protein Today E11.618 - Type 2 diabetes mellitus with other diabetic arthropathy, M15.9 - Polyosteoarthritis, unspecified Erythrocyte Sedimentation Rate Today E11.618 - Type 2 diabetes mellitus with other diabetic arthropathy, M15.9 - Polyosteoarthritis, unspecified Cyclic Citrullinated Peptide Today E11.618 - Type 2 diabetes mellitus with other diabetic arthropathy, M15.9 - Polyosteoarthritis, unspecified XR hand wrist LT Today E11.618 - Type 2 diabetes mellitus with other diabetic arthropathy, M15.9 - Polyosteoarthritis, unspecified XR hand wrist RT Today E11.618 - Type 2 diabetes mellitus with other diabetic arthropathy, M15.9 - Polyosteoarthritis, unspecified PT Evaluation and Treatment Today M17.0 - Bilateral primary osteoarthritis of knee, M19.011 - Primary osteoarthritis, right shoulder, M19.012 - Primary osteoarthritis, left shoulder Complete Blood Count Auto Diff Today E11.618 - Type 2 diabetes mellitus with other diabetic arthropathy, M15.9 - Polyosteoarthritis, unspecified Rheumatoid Factor Today E11.618 - Type 2 diabetes mellitus with other diabetic arthropathy, M15.9 - Polyosteoarthritis, unspecified OT Evaluation and Treatment Today E11.618 - Type 2 diabetes mellitus with other diabetic arthropathy, M19.041 - Primary osteoarthritis, right hand, M19.042 - Primary osteoarthritis, left hand Medications: Discontinued amoxicillin-pot clavulanate 875-125 mg Discontinued Reason: Patient no longer taking 1 tab PO BID 7 days 14 tabs 0RF Coding Level of Care Code New Pt Level 5 (65361) Diagnoses Polyarticular osteoarthritis M15.9 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
[2024-07-02 07:36] VITALS: BP 115/60; PULSE 91; RESP 16; O2SAT 98; BMI 25.7
== END 2024-07-02 08:26 | disposition home or self-care (01) ==
PROVIDERS: PCP Nurse Practitioner Family; Visit Provider Student in an Organized Health Care Education/Training Program
DX: M19.012 Primary osteoarthritis, left shoulder (principal); M19.011 Primary osteoarthritis, right shoulder; E11.618 Type 2 diabetes mellitus with other diabetic arthropathy
CPT/HCPCS: 20605; 99205

== ENCOUNTER → 2024-07-02 07:24 | Outpatient (BNVA) | payer MEDICARE, SELFPAY | PROVIDERS: PCP Nurse Practitioner Family; Visit Provider Student in an Organized Health Care Education/Training Program | DX: M17.0 Bilateral primary osteoarthritis of knee (principal); M19.011 Primary osteoarthritis, right shoulder; M19.012 Primary osteoarthritis, left shoulder; E11.618 Type 2 diabetes mellitus with other diabetic arthropathy | CPT/HCPCS: 20605; 99202; J2003; J3300 ==

== ENCOUNTER 2024-07-03 08:27 | Outpatient (REF) | payer MEDICARE, SELFPAY ==
[2024-07-03 09:18] LABS: MANUAL DIFF FLAG NO
[2024-07-03 09:38] LABS: Basophils Percent Auto 0.6 % (0-2); Eosinophils Absolute Auto 0.2 X10*3/uL (0.0-0.4); Eosinophils Percent Auto 3.4 % (0-4); Hematocrit 34.8 % (42.0-52.0); Hemoglobin 11.3 g/dl (14.0-18.0); Imm Gran Pct Auto 1.5 % (0.0-0.4); Lymphocytes Absolute Auto 2.5 X10*3/uL (1.2-4.9); Lymphocytes Percent Auto 35.8 % (20-40); Mean Corpuscular HGB Conc 32.5 g/dl (31.0-36.0); Mean Corpuscular Hemoglobin 28.2 pg (27.0-33.0); Mean Corpuscular Volume 86.8 fL (80.0-98.0); Monocytes Absolute Auto 0.4 X10*3/uL (0.1-1.2); Monocytes Percent Auto 5.8 % (2-11); Neutrophils Absolute Auto 3.6 x10*3/uL (2.0-8.3); Neutrophils Percent Auto 52.9 % (45-73); Platelet Count 319 X10*3/uL (160-400); Red Blood Count 4.01 X10*6/uL (4.60-5.80); White Blood Count 6.9 X10*3/uL (4.8-10.8)
[2024-07-03 10:09] LABS: Rheumatoid Factor < 13.0 IU/mL (<15.0)
[2024-07-03 10:16] LABS: Alanine Aminotransferase 10 U/L (0-40); Alkaline Phosphatase 78 U/L (39-117); Anion Gap 11 (12-20); Aspartate Amino Transferase 17 U/L (5-37); Bilirubin Total 0.6 mg/dL (0.0-1.0); Blood Urea Nitrogen 23 mg/dL (9-16); C Reactive Protein 2.68 mg/dL (< or = 0.50); Carbon Dioxide 23 mmol/L (22-29); Chloride 103 mmol/L (96-108); Estimated Glomerular Filt Rate > 60; Glucose Random 215 mg/dL (60-115); Potassium 4.2 mmol/L (3.3-5.1); Sodium 133 mmol/L (135-145)
[2024-07-03 10:25] LABS: Erythrocyte Sedimentation Rate 62 MM/HR (0-15)
[2024-07-07 21:24] LABS: Cyclic Citrullinated Peptide <16 UNITS
== END 2024-07-03 08:28 | disposition home or self-care (01) ==
LOC: HO.XRAY 08:27
PROVIDERS: PCP Nurse Practitioner Family; Visit Provider Student in an Organized Health Care Education/Training Program
DX: M15.9 Polyosteoarthritis, unspecified (principal); E11.618 Type 2 diabetes mellitus with other diabetic arthropathy
CPT/HCPCS: 36415; 73110; 73130; 80053; 85025; 85652; 86140; 86200; 86431

== ENCOUNTER 2024-07-15 08:56 | Outpatient (AMB) | payer MEDICARE, SELFPAY ==
[2024-07-15 08:57] VITALS: BP 116/72; PULSE 75; BMI 25.9
--- NOTE | 2024-07-15 08:57 | A.OFFVIS_ITS ---
Vital Signs 07/15/24 08:57 Height 5 ft 10 in Weight 180 lb 12.465 oz BMI 25.9 BP 116/72 Blood Pressure Location Rt brachial Position Sitting Pulse 75 Pulse Source Pulse Oximeter Intake Visit Reasons: follow up results/cm Intake Note: Patient presents here today for X-Rays and Laboratory Results: Inspector Structural Bonding Required: No Accompanied by: Significant Other Allergies No Known Allergies Allergy (Verified 07/15/24 09:02) Medication List - Last Reconciled 07/15/24 by Augusta Johnson MD atorvastatin 40 mg PO DAILY empagliflozin (Jardiance) 25 mg PO DAILY metformin 1,000 mg PO BID tramadol 50 - 100 mg PO QID PRN valsartan 160 mg PO DAILY HPI Comments Details: Patient is an 84-year-old male with hypertension, diabetes, hyperlipidemia and polyarticular osteoarthritis here today for follow-up Interval History: Patient last seen 07/02/2024. At that time patient was complaining of bilateral shoulder pain with difficulty performing his ADLs including putting on his clothes and putting on his pants. He was given bilateral AC joint injections during that visit which helped for a few days but he still has not been able to mobilize his shoulders. Labs showed elevated ESR and CRP. New concern for PMR Today patient still complains of mainly pain and stiffness involving his bi lateral shoulders unable to perform his ADLs. Rheumatologic History: Patient establish care 06/2024. Current working diagnosis of PMR based on elevated ESR/CRP, weight loss, fatigue and shoulder stiffness. 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 For the past several years he has been having polyarticular joint pain involving his knees, shoulders, hands, and feet. He denied recurrent monoarticular arthritis involving the toes or the wrists. He is currently following with Orthopedics and receives gel injections every 3-4 months. Patient does not want knee replacement. He was told that he is currently bone on bone in both his knees. Particularly bothering him today is bilateral shoulders and bilateral knees. His shoulder pain makes it difficult for him to dress himself in the morning. No known family history of autoimmune disease Denies stiffness in the muscles of the shoulder or the thigh/hip. 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 Polyp of nasal cavity Osteoarthritis of both knees Osteoarthritis of both hands Onychomycosis Undescended left testicle Left ventricular hypertrophy Low vitamin B12 level Insomnia Hard of hearing Glenohumeral arthritis Glaucoma Fatty liver Hyperlipidemia Disorder of rotator cuff of both shoulders CKD stage G2/A2, GFR 60-89 and albumin creatinine ratio 30-299 mg/g CKD (chronic kidney disease) Chronic rhinitis Chronic back pain Chronic anemia Carpal tunnel syndrome Benign essential HTN Asthma Aortic valve stenosis Anxiety Family History Father History of arthritis Social History Household Members: Spouse Housing: House Alcohol intake: former Patient Tobacco Use Status: Former Tobacco user Years Smoked: 30 Review of Systems Const Details: Review of Systems Constitutional: Denies fever, chills, weight loss ENT: Denies vision changes, eye pain or eye redness, dental caries, dry mouth GI: Denies nausea, vomiting, diarrhea, abdominal pain, change in BM Pulm: Denies SOB, MELENDEZ, hemoptysis, wheezing Cards: Denies chest pain, palpitations Skin: Denies Raynaud's, rash, nail changes, photosensitivity, HYDROSTATIC TUBING TESTER: Denies headaches, weakness, paresthesias, recurrent falls MSK: as per HPI All other systems reviewed and are unremarkable except noted above All systems reviewed & are unremarkable except as noted in HPI and below Physical Exam Vital Signs: Last Vital Signs Pulse 75 07/15/24 08:57 BP 116/72 07/15/24 08:57 BMI result Body Mass Index 25.9 Physical Examination CONSTITUITIONAL Patient alert and cooperative. Well appearing and in no apparent painful distress Bitemporal wasting Wasting noted to the thenar eminence bilaterally Wasting noted to the abductor pollicis brevis but not enough to cause a split hand syndrome CHEST/RESPIRATORY SYSTEM Normal respiratory effort and able to speak in complete sentences. ?Clear to auscultation bilaterally. ?No crackles, rales, rhonchi, wheezes heard. CARDIAC SYSTEM Regular rate and rhythm. ?Loud systolic murmur heard throughout pericardium MSK Hands: ?Diabetic cheiroarthropathy - positive prayer hand sign. Prominent Heberden nodes throughout bilateral hands on the DIPs. Prominent 2nd MCP joint without evidence of synovitis. Wrists: ?Full range of motion at the wrists without pain. ?No tenderness to palpation or synovitis noted to the wrists. Elbows: Full range of motion without pain. No tenderness, weakness, swelling, increased warmth or erythema. Shoulders: Patient has full range of motion to passive movement however active movement is limited. Tenderness to palpation of the AC joint Hips: Full range of motion without pain. Hip bursa: No tenderness to palpation Knees: ?Full range of motion. ?No tenderness, swelling, increased warmth or erythema. Bilateral crepitation Ankles: Full range of motion. ?No tenderness, swelling, increased warmth or erythema.? Feet: ?Negative squeeze test. ?No tenderness to palpation or swelling of the MTPs. Tender points:??No tenderness to palpation of the neck, shoulders, chest, elbows, hips, buttocks or knees. SKIN Skin intact without rashes. Results Reviewed Results Reviewed: Laboratory Tests 07/03/24 09:17 WBC 6.9 RBC 4.01 L Hgb 11.3 L Hct 34.8 L Plt Count 319 ESR 62 H Sodium 133 L Potassium 4.2 Chloride 103 Carbon Dioxide 23 Anion Gap 11 L BUN 23 H Creatinine 1.10 Random Glucose 215 H C-Reactive Protein 2.68 H Assessment & Plan Assessment & Plan (1) PMR (polymyalgia rheumatica): Code(s): M35.3 - Polymyalgia rheumatica Category: Medical Plan: #PMR Patient with shoulder stiffness, fatigue with difficulty doing his ADLs and elevated inflammatory markers including CRP and ESR. Concern for polymyalgia rheumatica. I will start a trial of prednisone. Prednisolone 15 mg daily for 2 weeks. Patient is to follow up with me in 2 weeks and to do blood work prior to that visit. My concern for him is that he has type 2 diabetes and the last blood work showed his glucose was 200. I expressed my concern to him and his that the prednisone we will increase his blood sugar. I impressed upon them that they need to resume checking his blood sugars at home and if the are greater than 400 they should reach out to their primary for instructions. They are agreement with this plan. Given his diabetes he will likely need a steroid sparing agent sooner rather than later. We will consider methotrexate versus tocilizumab. (2) Polyarticular osteoarthritis: Code(s): M15.9 - Polyosteoarthritis, unspecified Category: Medical Plan: #Polyarticular OA Patient with polyarticular osteoarthritis involving the hands, knees and shoulders. Has been receiving gel injections in the knees every 6 months and is currently due for a gel injection. He would like to transfer his osteoarthritis care here. I told him to reach out to his orthopedic doctor to find out which gel injection he was getting in the past. We will give bilateral knee gel injection at the next visit. (3) [facility] systemic steroid user: Code(s): Z79.52 - [facility] (current) use of systemic steroids Plan: #Long-term Use of Steroids Discussed with patient the risks and benefits of steroid for managing the rheumatic condition Benefits include: - Reduced pain, improved mobility, increased participation in activities, and decreased progression of disease Risks include: - GI upset, potential ultrasound worsening or formation (especially in patients > 65 years old), elevated blood pressure/worsening hypertension, elevated blood sugar/worsening diabetes control, worsening of bone density, elevated lipids/worsening triglycerides, cataract formation, weight gain Recommended using proton pump inhibitors (PPIs) for the duration of steroid use to reduce the risk of gastric ulcers and vitamin-D daily to reduce the risk of osteoporosis Labs checked: ?A1c, T spot, hepatitis-B and C serologies Pneumocystis jiroveci prophylaxis: ?Patient with risk factors including steroids greater than 50 mg for more than 30 days, age greater than 60 years, and lung involvement from underlying rheumatic disease requires prophylaxis and will be given so Plan I spent 30 minutes reviewing the record and labs, seeing the patient, discussing the treatment plan and documenting in the medical record ? Orders: Orders Comprehensive Met. Panel 2 Weeks M35.3 - Polymyalgia rheumatica Complete Blood Count Auto Diff 2 Weeks M35.3 - Polymyalgia rheumatica C Reactive Protein 2 Weeks M35.3 - Polymyalgia rheumatica Erythrocyte Sedimentation Rate 2 Weeks M35.3 - Polymyalgia rheumatica Medications: New prednisone 15 mg (3 x 5 mg) PO DAILY 14 days 42 tabs 0RF M35.3 - Polymyalgia rheumatica Coding Level of Care Code Est Pt Level 4 (38430) Diagnoses PMR (polymyalgia rheumatica) M35.3 Polyarticular osteoarthritis M15.9 [facility] systemic steroid user Z79.52
== END 2024-07-15 09:37 | disposition home or self-care (01) ==
PROVIDERS: PCP Nurse Practitioner Family; Visit Provider Student in an Organized Health Care Education/Training Program
DX: M35.3 Polymyalgia rheumatica (principal); M15.9 Polyosteoarthritis, unspecified; Z79.52 Long term (current) use of systemic steroids
CPT/HCPCS: 99214

== ENCOUNTER → 2024-07-15 08:56 | Outpatient (BNVA) | payer MEDICARE, SELFPAY | PROVIDERS: PCP Nurse Practitioner Family; Visit Provider Student in an Organized Health Care Education/Training Program | DX: M35.3 Polymyalgia rheumatica (principal); M15.9 Polyosteoarthritis, unspecified; Z79.52 Long term (current) use of systemic steroids | CPT/HCPCS: 99212 ==

== ENCOUNTER 2024-07-27 08:37 | Outpatient (REF) | payer MEDICARE, SELFPAY ==
[2024-07-27 09:00] LABS: MANUAL DIFF FLAG NO
[2024-07-27 09:18] LABS: Basophils Absolute Auto 0.1 X10*3/uL (0.0-0.2); Basophils Percent Auto 0.7 % (0-2); Eosinophils Absolute Auto 0.2 X10*3/uL (0.0-0.4); Eosinophils Percent Auto 2.2 % (0-4); Hematocrit 38.8 % (42.0-52.0); Hemoglobin 12.5 g/dl (14.0-18.0); Imm Gran Abs Auto 0.17 X10*3/uL (0.00-0.03); Imm Gran Pct Auto 2.1 % (0.0-0.4); Lymphocytes Absolute Auto 3.6 X10*3/uL (1.2-4.9); Mean Corpuscular HGB Conc 32.2 g/dl (31.0-36.0); Mean Corpuscular Hemoglobin 28.5 pg (27.0-33.0); Mean Corpuscular Volume 88.4 fL (80.0-98.0); Mean Platelet Volume 8.5 fL (9.4-12.4); Monocytes Absolute Auto 0.6 X10*3/uL (0.1-1.2); Monocytes Percent Auto 7.5 % (2-11); Neutrophils Absolute Auto 3.6 x10*3/uL (2.0-8.3); Neutrophils Percent Auto 43.5 % (45-73); Platelet Count 236 X10*3/uL (160-400); Red Blood Count 4.39 X10*6/uL (4.60-5.80); Red Cell Distribution Width 17.6 % (11.0-16.0); White Blood Count 8.3 X10*3/uL (4.8-10.8)
[2024-07-27 09:46] LABS: Alanine Aminotransferase 11 U/L (0-40); Albumin Level 4.1 g/dL (3.5-5.0); Alkaline Phosphatase 74 U/L (39-117); Anion Gap 11 (12-20); Aspartate Amino Transferase 15 U/L (5-37); Bilirubin Total 0.6 mg/dL (0.0-1.0); Blood Urea Nitrogen 15 mg/dL (9-16); C Reactive Protein 3.84 mg/dL (< or = 0.50); Carbon Dioxide 26 mmol/L (22-29); Chloride 102 mmol/L (96-108); Estimated Glomerular Filt Rate > 60; Glucose Random 156 mg/dL (60-115); Potassium 4.6 mmol/L (3.3-5.1); Sodium 134 mmol/L (135-145); Total Protein 7.7 g/dL (6.5-8.0)
[2024-07-27 10:02] LABS: Erythrocyte Sedimentation Rate 29 MM/HR (0-15)
== END 2024-07-27 08:38 | disposition home or self-care (01) ==
LOC: HO.LAB 08:37
PROVIDERS: PCP Nurse Practitioner Family; Visit Provider Student in an Organized Health Care Education/Training Program
DX: M35.3 Polymyalgia rheumatica (principal)
CPT/HCPCS: 36415; 80053; 85025; 85652; 86140

== ENCOUNTER 2024-07-29 12:23 | Outpatient (AMB) | payer MEDICARE, SELFPAY ==
--- NOTE | 2024-07-29 12:35 | A.OFFVIS_ITS ---
Vital Signs 07/29/24 12:36 Height 5 ft 10 in Weight 182 lb 15.739 oz BMI 26.3 BP 90/54 L Blood Pressure Location Rt brachial Position Sitting Respiration 18 Pulse 88 Pulse Source Pulse Oximeter Pulse Oximetry (%) 98 Oxygen Delivery Method Room Air Intake Visit Reasons: OA Knee/GEL INJECTION Allergies No Known Allergies Allergy (Verified 07/29/24 12:36) Medication List - Last Reconciled 07/29/24 by Augusta Johnson MD atorvastatin 40 mg PO DAILY empagliflozin (Jardiance) 25 mg PO DAILY metformin 1,000 mg PO BID prednisone 15 mg (3 x 5 mg) PO DAILY 14 days tramadol 50 - 100 mg PO QID PRN valsartan 160 mg PO DAILY HPI Comments Details: Patient is an 84-year-old male with hypertension, diabetes, hyperlipidemia and polyarticular osteoarthritis here today for follow-up Interval History: Patient last seen 07/15/2024. At that time he was being followed up for bilateral shoulder pain and stiffness. He had previously received bilateral AC joint injections with improvement however he still complain of pain and stiffness to his shoulders. Given his elevated ESR and CRP he was diagnosed with PMR and started on prednisone. Patient states that he had a great response to the prednisone and was feeling much better however the side effects of the prednisone caused him to stop. Patient does not want to continue with Prednisone Patient is also here for bilateral gel knee injections Rheumatologic History: Patient establish care 06/2024. Current working diagnosis of PMR based on elevated ESR/CRP, weight loss, fatigue and shoulder stiffness. 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 Pleural plaque Pneumonia Echocardiogram abnormal Umbilical hernia 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 Polyp of nasal cavity Osteoarthritis of both knees Osteoarthritis of both hands Onychomycosis Undescended left testicle Left ventricular hypertrophy Low vitamin B12 level Insomnia Hard of hearing Glenohumeral arthritis Glaucoma Fatty liver Hyperlipidemia Disorder of rotator cuff of both shoulders CKD stage G2/A2, GFR 60-89 and albumin creatinine ratio 30-299 mg/g CKD (chronic kidney disease) Chronic rhinitis Chronic back pain Chronic anemia Carpal tunnel syndrome Benign essential HTN Asthma Aortic valve stenosis Anxiety Family History Father History of arthritis Social History Household Members: Spouse Housing: House Alcohol intake: former Patient Tobacco Use Status: Former Tobacco user Years Smoked: 30 Physical Exam Vital Signs: Last Vital Signs Pulse 88 07/29/24 12:36 Resp 18 07/29/24 12:36 BP 90/54 L 07/29/24 12:36 Pulse Ox 98 07/29/24 12:36 Oxygen Delivery Method Room Air 07/29/24 12:36 BMI result Body Mass Index 26.3 Physical Examination CONSTITUITIONAL Patient alert and cooperative. Well appearing and in no apparent painful distress Bitemporal wasting Wasting noted to the thenar eminence bilaterally Wasting noted to the abductor pollicis brevis but not enough to cause a split hand syndrome CHEST/RESPIRATORY SYSTEM Normal respiratory effort and able to speak in complete sentences. ?Clear to auscultation bilaterally. ?No crackles, rales, rhonchi, wheezes heard. CARDIAC SYSTEM Regular rate and rhythm. ?Loud systolic murmur heard throughout pericardium MSK Hands: ?Diabetic cheiroarthropathy - positive prayer hand sign. Prominent [place] nodes throughout bilateral hands on the DIPs. Prominent 2nd MCP joint without evidence of synovitis. Wrists: ?Full range of motion at the wrists without pain. ?No tenderness to palpation or synovitis noted to the wrists. Elbows: Full range of motion without pain. No tenderness, weakness, swelling, increased warmth or erythema. Shoulders: Patient has full range of motion to passive movement however active movement is limited. Tenderness to palpation of the AC joint Hips: Full range of motion without pain. Hip bursa: No tenderness to palpation Knees: ?Full range of motion. ?No tenderness, swelling, increased warmth or erythema. Bilateral crepitation Ankles: Full range of motion. ?No tenderness, swelling, increased warmth or erythema.? Feet: ?Negative squeeze test. ?No tenderness to palpation or swelling of the MTPs. Tender points:??No tenderness to palpation of the neck, shoulders, chest, elbows, hips, buttocks or knees. SKIN Skin intact without rashes. Results Reviewed Results Reviewed: Laboratory Tests 07/03/24 07/27/24 09:17 08:57 WBC 8.3 RBC 4.39 L Hgb 12.5 L Hct 38.8 L Plt Count 236 D ESR 62 H 29 H Sodium 133 L 134 L Potassium 4.2 4.6 Chloride 103 102 Carbon Dioxide 23 26 BUN 23 H 15 Creatinine 1.10 0.95 AST 17 15 ALT 10 11 C-Reactive Protein 2.68 H 3.84 H Assessment & Plan Assessment & Plan (1) PMR (polymyalgia rheumatica): Code(s): M35.3 - Polymyalgia rheumatica Category: Medical Plan: #PMR Patient with presumed PMR Had rapid improvement on prednisone further confirming diagnosis but due to side effects: headache, elevated blood sugar, insomnia, mood swings he self discontinued Will start methotrexate Plan - MTx 15mg (3 pills in the AM, 3 pills in the PM) once a week - Folic Acid 1 mg daily - Check CBC, CMP, Hep B, Hep C, Tb - RTC 3 months (2) Osteoarthritis of both knees: Code(s): M17.0 - Bilateral primary osteoarthritis of knee Category: Medical Qualifiers: Osteoarthritis type: primary Qualified Code(s): M17.0 - Bilateral primary osteoarthritis of knee Plan: #Bilateral knee OA Received Gel-One injections today Lot Number: [id number] Exp 03/02/2026 CAT NO [id number] (3) 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 Limit alcohol and avoid Bactrim ? Monitoring: ?CBC, BMP, LFTs every 3-4 months and hepatitis serologies as needed Plan I spent 30 minutes reviewing the record and labs, seeing the patient, discussing the treatment plan and documenting in the medical record ? Orders: Orders AMB Joint Injection/Aspiration Today M17.0 - Bilateral primary osteoarthritis of knee C Reactive Protein 3 Months M35.3 - Polymyalgia rheumatica, Z79.631 - roasterman (current) use of antimetabolite agent AMB Joint Injection/Aspiration Today M17.0 - Bilateral primary osteoarthritis of knee Complete Blood Count Auto Diff 3 Months M35.3 - Polymyalgia rheumatica, Z79.631 - roasterman (current) use of antimetabolite agent Comprehensive Met. Panel 3 Months M35.3 - Polymyalgia rheumatica, Z79.631 - senior care (current) use of antimetabolite agent Erythrocyte Sedimentation Rate 3 Months M35.3 - Polymyalgia rheumatica, Z79.631 - senior care (current) use of antimetabolite agent Hepatitis A,B,C Profile 3 Months M35.3 - Polymyalgia rheumatica, Z79.631 - senior care (current) use of antimetabolite agent T Spot TB 3 Months M35.3 - Polymyalgia rheumatica, Z79.631 - senior care (current) use of antimetabolite agent Medications: New methotrexate sodium 15 mg (6 x 2.5 mg) PO QWEEK 90 days 78 tabs 1RF M35.3 - Polymyalgia rheumatica folic acid 1 mg PO DAILY 90 tabs 1RF M35.3 - Polymyalgia rheumatica, Z79.631 - senior care (current) use of antimetabolite agent Discontinued prednisone Discontinued Reason: Doctor's Order 15 mg (3 x 5 mg) PO DAILY 14 days 42 tabs 0RF M35.3 - Polymyalgia rheumatica Coding Level of Care Code Est Pt Level 4 (04861) Complex EM visit Add On G2211 Diagnoses PMR (polymyalgia rheumatica) M35.3 Primary osteoarthritis of both knees M17.0 Osteoarthritis type: primary 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
[2024-07-29 12:36] VITALS: BP 90/54; PULSE 88; RESP 18; O2SAT 98; BMI 26.3
== END 2024-07-29 13:27 | disposition home or self-care (01) ==
PROVIDERS: PCP Nurse Practitioner Family; Visit Provider Student in an Organized Health Care Education/Training Program
DX: M35.3 Polymyalgia rheumatica (principal); M17.0 Bilateral primary osteoarthritis of knee; Z79.631 Long term (current) use of antimetabolite agent
CPT/HCPCS: 20610; 99214

== ENCOUNTER → 2024-07-29 12:23 | Outpatient (BNVA) | payer MEDICARE, SELFPAY | PROVIDERS: PCP Nurse Practitioner Family; Visit Provider Student in an Organized Health Care Education/Training Program | DX: M17.0 Bilateral primary osteoarthritis of knee (principal); M35.3 Polymyalgia rheumatica; Z79.631 Long term (current) use of antimetabolite agent | CPT/HCPCS: 20610; 99212 ==

== ENCOUNTER 2024-09-10 07:28 | Emergency (ER) | payer MEDICARE, SELFPAY ==
[2024-09-10 07:44] VITALS: BP 125/76; PULSE 109; RESP 18; TEMP 36.1; O2SAT 98; BMI 25.5
--- NOTE | 2024-09-10 09:13 | ED_ITS ---
HPI - General Adult General Chief complaint: General Medical Stated complaint: sinus Time Seen by Provider: 09/10/24 09:11 History of Present Illness HPI narrative: Patient with 2 complaints First complaint is he feels like he has had sinus infection similar to other sinus infections in the past, he is feeling pressure and pain behind his eyes and in his sinuses, he is feeling like his sinuses are blocked, this has been going on for several days Second complaint is Saturday he had an episode which is said lasted several hours where he felt dizzy and was not walking normally but was able to walk and in going to the bathroom he urinated on himself once During this episode he was moving all extremities he had no limb weakness, he had no facial droop, he was speaking and communicating normally, he had no chest pain no palpitations no shortness of breath did not feel faint, no headache or stiff neck He then returned to his baseline Right now he feels in his normal state of health he is walking normally eating and drinking, speaking and communicating normally, he denies any abrupt onset chest pain, he denies chest pain shortness of breath palpitations dizziness fainting or feeling faint, no fever now, said he felt warm on Saturday when he had the dizziness and may have had a fever on Saturday but did not check Related Data Home Medications ?Medication ?Instructions ?Recorded ?Confirmed atorvastatin 40 mg tablet 40 mg PO DAILY 07/02/24 07/29/24 empagliflozin 25 mg tablet 25 mg PO DAILY 07/02/24 07/29/24 (Jardiance) metformin 500 mg tablet 1,000 mg PO BID 07/02/24 07/29/24 tramadol 50 mg tablet 50 - 100 mg PO QID PRN 07/02/24 07/29/24 valsartan 160 mg tablet 160 mg PO DAILY 07/02/24 07/29/24 Previous Rx's ?Medication ?Instructions ?Recorded folic acid 1 mg tablet 1 mg PO DAILY #90 tabs 07/29/24 methotrexate sodium 2.5 mg tablet 15 mg (6 x 2.5 mg) PO QWEEK 90 07/29/24 days #78 tabs prednisone 5 mg tablet 10 mg (2 x 5 mg) PO DAILY 90 days 08/18/24 #180 tabs doxycycline hyclate 100 mg tablet 100 mg PO DAILY #14 tabs 09/10/24 Allergies Allergy/AdvReac Type Severity Reaction Status Date / Time No Known Allergies Allergy Verified 09/10/24 07:45 [facility] Past Medical History Source: nursing notes reviewed Medical History (Updated 09/10/24 @ 12:07 by DAVID Johnson) 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, 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, 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 PMR (polymyalgia rheumatica) 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 Pleural plaque Pneumonia Echocardiogram abnormal Umbilical hernia 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 Polyp of nasal cavity Osteoarthritis of both knees Osteoarthritis of both hands Onychomycosis Undescended left testicle Left ventricular hypertrophy Low vitamin B12 level Insomnia Hard of hearing Glenohumeral arthritis Glaucoma Fatty liver Hyperlipidemia Disorder of rotator cuff of both shoulders CKD stage G2/A2, GFR 60-89 and albumin creatinine ratio 30-299 mg/g CKD (chronic kidney disease) Chronic rhinitis Chronic back pain Chronic anemia Carpal tunnel syndrome Benign essential HTN Asthma Aortic valve stenosis Anxiety Family History Family History Father History of arthritis Social History Social History Household Members: Spouse Housing: House Alcohol intake: former Patient Tobacco Use Status: Former Tobacco user Years Smoked: 30 Physical Exam ED Vital Signs: Vital Signs - 24 hr 09/10/24 07:44 09/10/24 11:58 09/10/24 12:13 Temperature 96.9 F 98.8 F 98.8 F Pulse Rate 109 H 98 98 Respiratory Rate 18 18 18 Blood Pressure 125/76 92/63 92/63 Pulse Oximetry 98 97 97 Oxygen Delivery Method Room Air Room Air Room Air BMI result Body Mass Index 25.5 General appearance no acute distress, comfortable calm and cooperative Eyes no redness or discharge The ears are clear with no bulging membrane no redness of canal or tympanic membranes bilateral The nose there is sinus tenderness over frontal sinuses The pharynx is clear without redness swelling or exudate, voice is normal Neck is supple Respiratory no distress The lungs are clear to auscultation bilateral Abdomen soft nontender Extremities full range motion x4 Skin no rash Neuro gait and balance are normal, comprehension and expression and interaction are all normal, cranial nerves 2-12 intact as tested pupils equal round reactive to light extraocular motions are intact, motor is 5/5 x4 and sensation intact and symmetrical in distal extremities, cerebellar exam [id number] was normal Course Course Course Narrative: CBC showed a mild anemia of 11.5 hemoglobin, hematocrit 33.9, likely from his rheumatoid arthritis Chemistry showed a glucose of 164 which is consistent with his previous, creatinine normal EKG showed a sinus tachycardia with a rate of 105, a first-degree AV block, no acute ischemic changes no ST elevations, EKG unchanged from prior in 05/24/2023 Immune compromised patient with rheumatoid arthritis on methotrexate and prednisone with the complaint that he feels like a sinus infection with a frontal sinus headache and some congestion similar to prior episodes that were treated with antibiotics His brought up that on Saturday he had been walking right and seemed to be off balance and that he urinated on himself and then returned to his baseline after several hours, he did not want to go to the hospital Saturday His said he felt warm but did not take his temperature and that is when his sinus symptoms began His only complaint on that day was sinus pressure and mild frontal headache, never had chest pain never had palpitations never felt faint never had shortness of breath or diaphoresis This case was discussed fully with attending physician Jeannie who agreed with plan Medications Administered Discontinued Medications Generic Name Dose Route Start Last Admin Trade Name Freq PRN Reason Stop Dose Admin Doxycycline Monohydrate 100 mg 09/10/24 11:43 09/10/24 12:01 Doxycycline Monohydrate 100 Mg Capsule PO 09/10/24 11:44 100 mg ONCE ONE Administration Medical Decision Making Lab Data MDM Lab Attestation statement: I reviewed the patient's lab results. 09/10/24 11:04 09/10/24 11:04 Labs: Lab Results 09/10/24 Range/Units 11:04 WBC 7.7 (4.8-10.8) X10*3/uL RBC 3.91 L (4.60-5.80) X10*6/uL Hgb 11.5 L (14.0-18.0) g/dl Hct 33.9 L (42.0-52.0) % MCV 86.7 (80.0-98.0) fL MCH 29.4 (27.0-33.0) pg MCHC 33.9 (31.0-36.0) g/dl RDW 19.5 H (11.0-16.0) % Plt Count 213 (160-400) X10*3/uL MPV 8.1 L (9.4-12.4) fL Immature Gran % (Auto) 1.0 H (0.0-0.4) % Neut % (Auto) 67.0 (45-73) % Lymph % (Auto) 23.9 (20-40) % [place] % (Auto) 6.9 (2-11) % Eos % (Auto) 0.9 (0-4) % Baso % (Auto) 0.3 (0-2) % Lymph # (Auto) 1.9 (1.2-4.9) X10*3/uL [place] # (Auto) 0.5 (0.1-1.2) X10*3/uL Eos # (Auto) 0.1 (0.0-0.4) X10*3/uL Baso # (Auto) 0.0 (0.0-0.2) X10*3/uL Abs Immat Gran (auto) 0.08 H (0.00-0.03) X10*3/uL Absolute Neuts (auto) 5.2 (2.0-8.3) x10*3/uL Absolute Nucleated RBC 0.020 H (0.0-0.012) X10*3/uL Nucleated RBC % (auto) 0.3 H (0.0-0.2) /100WBC Sodium 132 L (135-145) mmol/L Potassium 4.8 (3.3-5.1) mmol/L Chloride 98 (96-108) mmol/L Carbon Dioxide 22 (22-29) mmol/L Anion Gap 17 (12-20) BUN 22 H (9-16) mg/dL Creatinine 1.25 (0.5-1.4) mg/dL Estim Creat Clear Calc 44.6 Estimated GFR 55 Random Glucose 164 H (60-115) mg/dL Calcium 9.2 (8.4-10.2) mg/dL Discharge Plan Discharge Clinical Impression: Sinusitis Patient Disposition: Home, Self-Care Additional Instructions: EKG did not show any sign of heart attack The blood tests did not show any acute abnormality, he did have a mild anemia which should be routinely followed up with primary doctor For the possible sinus infection we are treating with doxycycline Many antibiotics interact with methotrexate so you should call the real estate associate attorney and make sure it is safe to take doxycycline with methotrexate, some antibiotics you have to stop the methotrexate so call the real estate associate attorney office Return to the ER any time any worse condition or any concerns Prescriptions: New doxycycline hyclate 100 mg tablet 100 mg PO DAILY Qty: 14 0RF No Action prednisone 5 mg tablet 10 mg PO DAILY 90 Days Qty: 180 1RF methotrexate sodium 2.5 mg tablet 15 mg PO QWEEK 90 Days Qty: 78 1RF folic acid 1 mg tablet 1 mg PO DAILY Qty: 90 1RF valsartan 160 mg tablet 160 mg PO DAILY tramadol 50 mg tablet 50 - 100 mg PO QID PRN Jardiance 25 mg tablet 25 mg PO DAILY atorvastatin 40 mg tablet 40 mg PO DAILY metformin 500 mg tablet 1,000 mg PO BID Interventions: ED Discharge Assessment Last Done: 09/10/24 12:13 Discharge Date/Time: 09/10/24 12:14 Print Language: Korean
--- NOTE | 2024-09-10 09:39 | ECG_ITS ---
Test Reason : arythmia Blood Pressure : */* mmHG Vent. 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
[2024-09-10 11:14] LABS: MANUAL DIFF FLAG NO
[2024-09-10 11:15] LABS: Basophils Percent Auto 0.3 % (0-2); Eosinophils Absolute Auto 0.1 X10*3/uL (0.0-0.4); Eosinophils Percent Auto 0.9 % (0-4); Hematocrit 33.9 % (42.0-52.0); Hemoglobin 11.5 g/dl (14.0-18.0); Imm Gran Abs Auto 0.08 X10*3/uL (0.00-0.03); Lymphocytes Absolute Auto 1.9 X10*3/uL (1.2-4.9); Lymphocytes Percent Auto 23.9 % (20-40); Mean Corpuscular HGB Conc 33.9 g/dl (31.0-36.0); Mean Corpuscular Hemoglobin 29.4 pg (27.0-33.0); Mean Corpuscular Volume 86.7 fL (80.0-98.0); Mean Platelet Volume 8.1 fL (9.4-12.4); Monocytes Absolute Auto 0.5 X10*3/uL (0.1-1.2); Monocytes Percent Auto 6.9 % (2-11); NRBC Pct Auto 0.3 /100WBC (0.0-0.2); Neutrophils Absolute Auto 5.2 x10*3/uL (2.0-8.3); Platelet Count 213 X10*3/uL (160-400); Red Blood Count 3.91 X10*6/uL (4.60-5.80); Red Cell Distribution Width 19.5 % (11.0-16.0); White Blood Count 7.7 X10*3/uL (4.8-10.8)
[2024-09-10 11:27] LABS: Anion Gap 17 (12-20); Blood Urea Nitrogen 22 mg/dL (9-16); Calcium 9.2 mg/dL (8.4-10.2); Carbon Dioxide 22 mmol/L (22-29); Chloride 98 mmol/L (96-108); Creatinine Clr Calc Pharmacy 44.6; Estimated Glomerular Filt Rate 55; Glucose Random 164 mg/dL (60-115); Potassium 4.8 mmol/L (3.3-5.1); Sodium 132 mmol/L (135-145)
[2024-09-10 11:58] VITALS: BP 92/63; PULSE 98; RESP 18; TEMP 37.1; O2SAT 97
[2024-09-10] MEDS: Doxycycline Monohydrate 100 MG CAPSULE PO (12:01)
[2024-09-10 12:13] VITALS: BP 92/63; PULSE 98; RESP 18; TEMP 37.1; O2SAT 97
== END 2024-09-10 12:14 | disposition home or self-care (01) ==
PROVIDERS: Physician Assistant Medical; Emergency Provider Emergency Medicine; PCP Nurse Practitioner Family
DX: J32.9 Chronic sinusitis, unspecified (principal); R42 Dizziness and giddiness; E11.22 Type 2 diabetes mellitus with diabetic chronic kidney disease; I12.9 Hypertensive chronic kidney disease with stage 1 through stage 4 chronic kidney disease, or unspecified chronic kidney disease; N18.2 Chronic kidney disease, stage 2 (mild)
CPT/HCPCS: 36415; 80048; 85025; 93005; 99283; 99284

== ENCOUNTER → 2024-09-10 09:39 | Outpatient (BNV) | payer MEDICARE, SELFPAY | PROVIDERS: Emergency Provider Emergency Medicine; PCP Nurse Practitioner Family; Visit Provider Internal Medicine Cardiovascular Disease | DX: R00.0 Tachycardia, unspecified (principal); R94.31 Abnormal electrocardiogram [ECG] [EKG] | CPT/HCPCS: 93010 ==

== ENCOUNTER 2024-09-15 11:05 | Emergency (ER) | payer MEDICARE, SELFPAY ==
[2024-09-15] VITALS (8 sets, daily range): BP systolic 93–135; BP diastolic 56–75; PULSE 77–99; RESP 18–20; TEMP 36.6–36.7; O2SAT 95–98; BMI 25.2
--- NOTE | 2024-09-15 11:27 | ECG_ITS ---
Test Reason : ekg recheck Blood Pressure : */* mmHG Vent. 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
--- NOTE | 2024-09-15 11:58 | ED_ITS ---
HPI - Arrhythmia/Palpitations General Chief Complaint: Arrhythmia/Palpitations Stated Complaint: DIZZY,LIGHTHEADED,EKG CHANGES FROM PCP OFFICE Time Seen by Provider: 09/15/24 11:08 Source: patient, family and EMS Mode of arrival: ambulatory Limitations: no limitations History of Present Illness ED Provider: Dr. Cherelle Pan HPI narrative: Patient comes to the emergency room via ambulance from patient's PCP. According to the patient, today he got an EKG done, showed a first-degree AV block and was sent to the emergency room. Patient states that he has no chest pain and no shortness of breath. Patient reported earlier today that he was getting dizzy. Patient reports dizziness as feeling lightheaded with quick standing up and walking. Patient states that otherwise he has no symptoms. This has been going on for a few months now. Patient is currently on antibiotics, being treated for sinusitis. Patient states that he has not had any significant nasal discharge, no fever or chills. Related Data Home Medications ?Medication ?Instructions ?Recorded ?Confirmed atorvastatin 40 mg tablet 40 mg PO DAILY 07/02/24 07/29/24 empagliflozin 25 mg tablet 25 mg PO DAILY 07/02/24 07/29/24 (Jardiance) metformin 500 mg tablet 1,000 mg PO BID 07/02/24 07/29/24 tramadol 50 mg tablet 50 - 100 mg PO QID PRN 07/02/24 07/29/24 valsartan 160 mg tablet 160 mg PO DAILY 07/02/24 07/29/24 Previous Rx's ?Medication ?Instructions ?Recorded folic acid 1 mg tablet 1 mg PO DAILY #90 tabs 07/29/24 methotrexate sodium 2.5 mg tablet 15 mg (6 x 2.5 mg) PO QWEEK 90 07/29/24 days #78 tabs prednisone 5 mg tablet 10 mg (2 x 5 mg) PO DAILY 90 days 08/18/24 #180 tabs doxycycline hyclate 100 mg tablet 100 mg PO DAILY #14 tabs 09/10/24 Allergies Allergy/AdvReac Type Severity Reaction Status Date / Time No Known Allergies Allergy Verified 09/15/24 11:19 Review of Systems 2 Review of Systems: Constitutional : No Weight loss, No Fever, No Chills, No Night Sweats, No Fatigue, No Malaise ENT/Mouth : Recuperating from sinusitis, no sinus pain, No Hearing loss, No Ear Pain, No Nasal Congestion, No Hoarseness, No sore throat, No Rhinorrhea, No Swallowing Difficulty Eyes: No Eye Pain, No Swelling, No Redness, No Foreign Body, No Discharge, No Vision Changes Cardiovascular : No Chest Pain, No SOB, No Dyspnea on Exertion, No Orthopnea, No Edema, No Palpitations, complaining of lightheadedness especially if he stands up fast and walks, denies syncope or near syncopal episodes Respiratory : No Cough, No Sputum, No Wheezing, No Smoke Exposure, No Dyspnea Gastrointestinal : No Nausea, No Vomiting, No Diarrhea, No Constipation, No abdominal Pain, No Hematochezia, No Melena Genitourinary : no irregular bleeding, No Dysuria, No Urinary Frequency, No Hematuria, No Urinary Incontinence, No Urgency, No Flank Pain, No Urinary Flow Changes, No Hesitancy Musculoskeletal : No joint pain, No Myalgias, No Joint Swelling Skin : No Skin Lesions, No rash Neuro : No Weakness, No Numbness, No Paresthesias, No Loss of Consciousness, no headaches Psych : No Anxiety/Panic, No Depression, No SI/HI/AH/VH, No Social Issues, Heme/Lymph: No Bruising, No Bleeding,No Lymphadenopathy Endocrine : No Polyuria, No Polydipsia, No Temperature Intolerance [facility] Past Medical History Medical History 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, 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, 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 PMR (polymyalgia rheumatica) 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 Pleural plaque Pneumonia Echocardiogram abnormal Umbilical hernia 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 Polyp of nasal cavity Osteoarthritis of both knees Osteoarthritis of both hands Onychomycosis Undescended left testicle Left ventricular hypertrophy Low vitamin B12 level Insomnia Hard of hearing Glenohumeral arthritis Glaucoma Fatty liver Hyperlipidemia Disorder of rotator cuff of both shoulders CKD stage G2/A2, GFR 60-89 and albumin creatinine ratio 30-299 mg/g CKD (chronic kidney disease) Chronic rhinitis Chronic back pain Chronic anemia Carpal tunnel syndrome Benign essential HTN Asthma Aortic valve stenosis Anxiety Family History Family History Father History of arthritis Social History Social History Household Members: Spouse Housing: House Alcohol intake: former Patient Tobacco Use Status: Former Tobacco user Years Smoked: 30 Advance Directives: No Advance Directives Information Provided: Yes Physical Exam 2 Vital Signs: Vital Signs: Last Vital Signs Temp 98.1 F 09/15/24 13:51 Pulse 85 09/15/24 16:01 Resp 20 09/15/24 13:51 BP 120/62 09/15/24 16:01 Pulse Ox 98 09/15/24 13:51 O2 Del Method Room Air 09/15/24 13:51 BMI result Body Mass Index 25.2 Const: Other: Appearance: Alert. Oriented X3. No acute distress. Eyes: Pupils equal, round and reactive to light. ENT: Pharynx normal. Neck: Normal inspection. Neck supple. No lymph nodes noted. No crepitus CVS: Normal heart rate and rhythm. Pulses normal. Normal S1 and S2, +2 systolic murmur on the right sternal border Respiratory: No respiratory distress. Breath sounds normal. No Wheezing. No rales Abdomen: Soft and nontender. No rigidity. No distention. Skin: Skin warm and dry. Normal skin color. Normal skin turgor. Extremities: No lower extremity edema. No Lacerations. No Rash Neuro: Oriented X 3. No motor deficit. No sensory deficit. Moving all extremities. No slurred speech. CN 2 through 12 grossly intact Psych: calm, cooperative, normal affect Medications Administered Discontinued Medications Generic Name Dose Route Start Last Admin Trade Name Freq PRN Reason Stop Dose Admin Sodium Chloride 1,000 mls @ 999 mls/hr 09/15/24 14:05 09/15/24 15:58 Ns IVCONT 09/15/24 15:05 Infused .Q1H1M ONE Infusion Medical Decision Making Medical Decision Making [facility] Narrative: My interpretation of EKG: Normal sinus rhythm, heart rate 74, no ST segment depression or elevation, no T-wave inversion, QTC 417, first-degree AV block, seen since 2022 Patient's hematology and chemistry within normal limits, negative troponin, Influenza/COVID test negative. First set of orthostatic vitals were positive, along with lightheadedness, patient given 1 L of normal saline. Second set of vitals orthostatics negative, both numbers and symptomatically. Patient is completely asymptomatic at this time, normal vitals, patient feels ready for discharge. Differential Diagnosis Differential Diagnoses: The differential diagnosis associated with the presentation includes (Orthostatic hypotension, vestibular neuritis, BPPV) Admission/Observation Consideration of admission/observation: Escalation of care including admission/observation considered (Given patient's age and previous symptoms, observation was considered) Lab Data MDM Lab Attestation statement: I reviewed the patient's lab results. 09/15/24 11:59 09/15/24 11:59 Labs: Lab Results 09/15/24 Range/Units 11:59 WBC 8.5 (4.8-10.8) X10*3/uL RBC 3.90 L (4.60-5.80) X10*6/uL Hgb 11.2 L (14.0-18.0) g/dl Hct 33.7 L (42.0-52.0) % MCV 86.4 (80.0-98.0) fL MCH 28.7 (27.0-33.0) pg MCHC 33.2 (31.0-36.0) g/dl RDW 19.7 H (11.0-16.0) % Plt Count 256 (160-400) X10*3/uL MPV 8.3 L (9.4-12.4) fL Immature Gran % (Auto) 4.7 H (0.0-0.4) % Neut % (Auto) 46.5 (45-73) % Lymph % (Auto) 40.2 H (20-40) % [place] % (Auto) 4.6 (2-11) % Eos % (Auto) 3.4 (0-4) % Baso % (Auto) 0.6 (0-2) % Lymph # (Auto) 3.4 (1.2-4.9) X10*3/uL [place] # (Auto) 0.4 (0.1-1.2) X10*3/uL Eos # (Auto) 0.3 (0.0-0.4) X10*3/uL Baso # (Auto) 0.1 (0.0-0.2) X10*3/uL Abs Immat Gran (auto) 0.40 H (0.00-0.03) X10*3/uL Absolute Neuts (auto) 3.9 (2.0-8.3) x10*3/uL Absolute Nucleated RBC 0.000 (0.0-0.012) X10*3/uL Nucleated RBC % (auto) 0.0 (0.0-0.2) /100WBC Sodium 135 (135-145) mmol/L Potassium 4.8 (3.3-5.1) mmol/L Chloride 105 (96-108) mmol/L Carbon Dioxide 25 (22-29) mmol/L Anion Gap 10 L (12-20) BUN 15 (9-16) mg/dL Creatinine 0.89 (0.5-1.4) mg/dL Estim Creat Clear Calc 62.6 Estimated GFR > 60 Random Glucose 141 H (60-115) mg/dL Calcium 8.7 (8.4-10.2) mg/dL Total Bilirubin 0.5 (0.0-1.0) mg/dL Direct Bilirubin 0.2 (0.0-0.5) mg/dL AST 24 (5-37) U/L ALT 10 (0-40) U/L Alkaline Phosphatase 75 (39-117) U/L Troponin I High Sens 9.4 D (<3.5-35.0) ng/L Total Protein 7.6 (6.5-8.0) g/dL Albumin 3.8 (3.5-5.0) g/dL COVID-19 (LA) Negative (Negative) COVID-19 Clin Com See Note Influenza Type A (LEA) Negative (Negative) Influenza Type B (LEA) Negative (Negative) Influenza A & B Note See Note Critical Care Time Critical Care Time Critical Care Time: Yes Total Critical Care Time: 35 Attestation: I have personally provided critical care time. Time includes review of lab data, radiology results, discussion with consultants, and monitoring for potential decompensation. Intervention performed as documented. Discharge Plan Discharge Clinical Impression: Orthostatic hypotension Patient Disposition: Home, Self-Care Instructions: Hypotension (ED) Additional Instructions: Please follow-up with your primary care physician tomorrow. If you have any worsening or new symptoms, please return to the emergency room or call 911 Prescriptions: No Action prednisone 5 mg tablet 10 mg PO DAILY 90 Days Qty: 180 1RF doxycycline hyclate 100 mg tablet 100 mg PO DAILY Qty: 14 0RF methotrexate sodium 2.5 mg tablet 15 mg PO QWEEK 90 Days Qty: 78 1RF folic acid 1 mg tablet 1 mg PO DAILY Qty: 90 1RF valsartan 160 mg tablet 160 mg PO DAILY tramadol 50 mg tablet 50 - 100 mg PO QID PRN Jardiance 25 mg tablet 25 mg PO DAILY atorvastatin 40 mg tablet 40 mg PO DAILY metformin 500 mg tablet 1,000 mg PO BID Print Language: Hebrew
[2024-09-15 12:04] LABS: MANUAL DIFF FLAG NO
[2024-09-15 12:08] LABS: Basophils Absolute Auto 0.1 X10*3/uL (0.0-0.2); Basophils Percent Auto 0.6 % (0-2); Eosinophils Absolute Auto 0.3 X10*3/uL (0.0-0.4); Eosinophils Percent Auto 3.4 % (0-4); Hematocrit 33.7 % (42.0-52.0); Hemoglobin 11.2 g/dl (14.0-18.0); Imm Gran Pct Auto 4.7 % (0.0-0.4); Lymphocytes Absolute Auto 3.4 X10*3/uL (1.2-4.9); Lymphocytes Percent Auto 40.2 % (20-40); Mean Corpuscular HGB Conc 33.2 g/dl (31.0-36.0); Mean Corpuscular Hemoglobin 28.7 pg (27.0-33.0); Mean Corpuscular Volume 86.4 fL (80.0-98.0); Mean Platelet Volume 8.3 fL (9.4-12.4); Monocytes Absolute Auto 0.4 X10*3/uL (0.1-1.2); Monocytes Percent Auto 4.6 % (2-11); Neutrophils Absolute Auto 3.9 x10*3/uL (2.0-8.3); Neutrophils Percent Auto 46.5 % (45-73); Platelet Count 256 X10*3/uL (160-400); Red Cell Distribution Width 19.7 % (11.0-16.0); White Blood Count 8.5 X10*3/uL (4.8-10.8)
[2024-09-15 12:22] LABS: Alanine Aminotransferase 10 U/L (0-40); Albumin Level 3.8 g/dL (3.5-5.0); Alkaline Phosphatase 75 U/L (39-117); Anion Gap 10 (12-20); Aspartate Amino Transferase 24 U/L (5-37); Bilirubin Direct 0.2 mg/dL (0.0-0.5); Bilirubin Total 0.5 mg/dL (0.0-1.0); Blood Urea Nitrogen 15 mg/dL (9-16); Calcium 8.7 mg/dL (8.4-10.2); Carbon Dioxide 25 mmol/L (22-29); Chloride 105 mmol/L (96-108); Creatinine Clr Calc Pharmacy 62.6; Estimated Glomerular Filt Rate > 60; Glucose Random 141 mg/dL (60-115); Potassium 4.8 mmol/L (3.3-5.1); Sodium 135 mmol/L (135-145); Total Protein 7.6 g/dL (6.5-8.0)
[2024-09-15 12:26] LABS: COVID-19 Test Negative (Negative); IDNOW Serial# 58CA691E
[2024-09-15 12:27] LABS: IDNOW Serial# 55D5AD1C; Influenza A Negative (Negative)
[2024-09-15 12:28] LABS: Influenza B2 Negative (Negative)
[2024-09-15 12:29] LABS: Troponin-I High Sensitivity 9.4 ng/L (<3.5-35.0)
[2024-09-15] MEDS: 0.9 % Sodium Chloride 1,000 ML 999 ML IVCONT (14:12)
== END 2024-09-15 16:23 | disposition home or self-care (01) ==
PROVIDERS: Emergency Provider Emergency Medicine; PCP Nurse Practitioner Family
DX: I95.1 Orthostatic hypotension (principal); I44.0 Atrioventricular block, first degree; R42 Dizziness and giddiness; Z03.818 Encounter for observation for suspected exposure to other biological agents ruled out; J45.909 Unspecified asthma, uncomplicated; E11.9 Type 2 diabetes mellitus without complications; Z79.84 Long term (current) use of oral hypoglycemic drugs; Z79.899 Other long term (current) drug therapy
CPT/HCPCS: 80048; 80076; 84484; 85025; 87502; 87635; 93005; 96360; 96361; 99284

== ENCOUNTER → 2024-09-15 11:27 | Outpatient (BNV) | payer MEDICARE, SELFPAY | PROVIDERS: Emergency Provider Emergency Medicine; PCP Nurse Practitioner Family; Visit Provider Internal Medicine | DX: I44.0 Atrioventricular block, first degree (principal) | CPT/HCPCS: 93010 ==

== ENCOUNTER 2024-10-28 09:32 | Outpatient (AMB) | payer MEDICARE, SELFPAY ==
--- NOTE | 2024-10-28 09:35 | A.OFFVIS_ITS ---
Vital Signs 10/28/24 09:39 Height 5 ft 10 in Weight 185 lb 13.595 oz BMI 26.7 BP 112/60 Blood Pressure Location Lt brachial Position Sitting Pulse 74 Pulse Source Pulse Oximeter Pulse Oximetry (%) 97 Oxygen Delivery Method Room Air Intake Visit Reasons: follow up Intake Note: Patient presents for follow up. Allergies No Known Allergies Allergy (Verified 10/28/24 09:39) Medication List - Last Reconciled 10/28/24 by Augusta Johnson MD atorvastatin 40 mg PO DAILY doxycycline hyclate 100 mg PO DAILY empagliflozin (Jardiance) 25 mg PO DAILY folic acid 1 mg PO DAILY metformin 1,000 mg PO BID methotrexate sodium 15 mg (6 x 2.5 mg) PO QWEEK 90 days prednisone 10 mg (2 x 5 mg) PO DAILY 90 days tramadol 50 - 100 mg PO QID PRN valsartan 160 mg PO DAILY HPI Comments Details: Patient is an 84-year-old male with hypertension, diabetes, hyperlipidemia and polyarticular osteoarthritis here today for follow-up Interval History: Patient last seen 07/29/24. At that time he was being followed up for bilateral shoulder pain and stiffness. He had previously received bilateral AC joint injections with improvement however he still complain of pain and stiffness to his shoulders. Given his elevated ESR and CRP he was diagnosed with PMR and started on prednisone. Patient had a great response to the prednisone and was feeling much better however the side effects of the prednisone caused him to stop and so he was started on methotrexate at that visit. Since then he requested prednisone because the methotrexate was taking some time to work Currently on 10 mg of prednisone but stating that he still feels really achy on the 10 mg. Patient is not taking his methotrexate Rheumatologic History: Patient establish care 06/2024. Current working diagnosis of PMR based on elevated ESR/CRP, weight loss, fatigue and shoulder stiffness. 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 Polyp of nasal cavity Osteoarthritis of both knees Osteoarthritis of both hands Onychomycosis Undescended left testicle Left ventricular hypertrophy Low vitamin B12 level Insomnia Hard of hearing Glenohumeral arthritis Glaucoma Fatty liver Hyperlipidemia Disorder of rotator cuff of both shoulders CKD stage G2/A2, GFR 60-89 and albumin creatinine ratio 30-299 mg/g CKD (chronic kidney disease) Chronic rhinitis Chronic back pain Chronic anemia Carpal tunnel syndrome Benign essential HTN Asthma Aortic valve stenosis Anxiety Family History Father History of arthritis Social History Household Members: Spouse Housing: House Alcohol intake: former Patient Tobacco Use Status: Former Tobacco user Years Smoked: 30 Review of Systems Const Details: Review of Systems Constitutional: Denies fever, chills, weight loss ENT: Denies vision changes, eye pain or eye redness, dental caries, dry mouth GI: Denies nausea, vomiting, diarrhea, abdominal pain, change in BM Pulm: Denies SOB, MELENDEZ, hemoptysis, wheezing Cards: Denies chest pain, palpitations Skin: Denies Raynaud's, rash, nail changes, photosensitivity, QUEEN'S COUNSEL: Denies headaches, weakness, paresthesias, recurrent falls MSK: as per HPI All other systems reviewed and are unremarkable except noted above Physical Exam Vital Signs: Last Vital Signs Pulse 74 10/28/24 09:39 BP 112/60 10/28/24 09:39 Pulse Ox 97 10/28/24 09:39 Oxygen Delivery Method Room Air 10/28/24 09:39 BMI result Body Mass Index 26.7 Vital signs reviewed Physical Examination CONSTITUITIONAL Patient alert and cooperative. Well appearing and in no apparent painful distress Bitemporal wasting Wasting noted to the thenar eminence bilaterally Wasting noted to the abductor pollicis brevis but not enough to cause a split hand syndrome CHEST/RESPIRATORY SYSTEM Normal respiratory effort and able to speak in complete sentences. ?Clear to auscultation bilaterally. ?No crackles, rales, rhonchi, wheezes heard. CARDIAC SYSTEM Regular rate and rhythm. ?Loud systolic murmur heard throughout pericardium MSK Hands: ?Diabetic cheiroarthropathy - positive prayer hand sign. Prominent [place] nodes throughout bilateral hands on the DIPs. Prominent 2nd MCP joint without evidence of synovitis. Wrists: ?Full range of motion at the wrists without pain. ?No tenderness to palpation or synovitis noted to the wrists. Elbows: Full range of motion without pain. No tenderness, weakness, swelling, increased warmth or erythema. Shoulders: Patient has full range of motion to passive movement however active movement is limited. Tenderness to palpation of the AC joint Hips: Full range of motion without pain. Hip bursa: No tenderness to palpation Knees: ?Full range of motion. ?No tenderness, swelling, increased warmth or erythema. Bilateral crepitation Ankles: Full range of motion. ?No tenderness, swelling, increased warmth or erythema.? Feet: ?Negative squeeze test. ?No tenderness to palpation or swelling of the MTPs. Tender points:??No tenderness to palpation of the neck, shoulders, chest, elbows, hips, buttocks or knees. SKIN Skin intact without rashes. Results Reviewed Results Reviewed: Laboratory Tests 07/03/24 07/27/24 09/15/24 09:17 08:57 11:59 WBC 8.5 RBC 3.90 L Hgb 11.2 L Hct 33.7 L Plt Count 256 ESR 62 H 29 H Sodium 135 Potassium 4.8 Chloride 105 Carbon Dioxide 25 BUN 15 Creatinine 0.89 Calcium 8.7 AST 24 ALT 10 Alkaline Phosphatase 75 Troponin I High Sens 9.4 D C-Reactive Protein 3.84 H Total Protein 7.6 Immunology labs 07/03/24 09:17 Rheumatoid Factor < 13.0 Cycl Citrul Peptide IgG <16 Assessment & Plan Assessment & Plan (1) PMR (polymyalgia rheumatica): Comment: Ddx 07/2024 Code(s): M35.3 - Polymyalgia rheumatica Category: Medical Plan: #PMR Patient is an 84-year-old male with bilateral shoulder and hip stiffness and pain with elevated inflammatory markers consistent with polymyalgia rheumatica. Initially started the patient on 20 mg of prednisone with good response however patient reported intolerable side effects of 20 mg of prednisone and self- discontinued at home. Based on that he was started on methotrexate however patient also did not start this medication. Due to his return of of pain he was restarted on a lower dose of Prednisone however this has not completely resolved his symptoms. Had a long discussion with patient and about the treatment of polymyalgia rheumatica and that this is a machine long goods helper treatment that requires diligence to the medication regimen. I discussed with the patient the option to either doing the long prednisone taper which can take to 1-2 years or to immediately start with a steroid sparing agent like methotrexate or even Kevzara. Patient states that he is willing to do the prolonged steroid taper to see if that we will get him into remission as he would prefer to be on less medications. Based on this I will restart his prednisone taper. 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 Plan: #Long-term Use of Steroids Discussed with patient the risks and benefits of steroid for managing the rheumatic condition Benefits include: - Reduced pain, improved mobility, increased participation in activities, and decreased progression of disease Risks include: - GI upset, potential ultrasound worsening or formation (especially in patients > 65 years old), elevated blood pressure/worsening hypertension, elevated blood sugar/worsening diabetes control, worsening of bone density, elevated lip ids/worsening triglycerides, cataract formation, weight gain Recommended using proton pump inhibitors (PPIs) for the duration of steroid use to reduce the risk of gastric ulcers and vitamin-D daily to reduce the risk of osteoporosis Labs checked: ?A1c, T spot, hepatitis-B and C serologies Pneumocystis jiroveci prophylaxis: ?Patient with risk factors including steroids greater than 50 mg for more than 30 days, age greater than 60 years, and lung involvement from underlying rheumatic disease requires prophylaxis and will be given so Plan I spent 38 minutes reviewing the record and labs, taking a history, examining the patient, discussing the treatment plan, ordering diagnostic work up and documenting in the medical record Orders: Orders Comprehensive Met. Panel Today M35.3 - Polymyalgia rheumatica Erythrocyte Sedimentation Rate Today M35.3 - Polymyalgia rheumatica Complete Blood Count Auto Diff Today M35.3 - Polymyalgia rheumatica C Reactive Protein Today M35.3 - Polymyalgia rheumatica Medications: Changed From prednisone 10 mg (2 x 5 mg) PO DAILY 90 days 180 tabs 1RF M35.3 - Polymyalgia rheumatica To prednisone 15 mg (3 x 5 mg) PO DAILY 4 weeks 84 tabs 1RF M35.3 - Polymyalgia rheumatica Discontinued methotrexate sodium Discontinued Reason: Doctor's Order 15 mg (6 x 2.5 mg) PO QWEEK 90 days 78 tabs 1RF M35.3 - Polymyalgia rheumatica folic acid Discontinued Reason: Doctor's Order 1 mg PO DAILY 90 tabs 1RF M35.3 - Polymyalgia rheumatica, Z79.631 - 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
[2024-10-28 09:39] VITALS: BP 112/60; PULSE 74; O2SAT 97; BMI 26.7
== END 2024-10-28 10:09 | disposition home or self-care (01) ==
LOC: HO.RHE 09:33
PROVIDERS: PCP Nurse Practitioner Family; Visit Provider Student in an Organized Health Care Education/Training Program
DX: M35.3 Polymyalgia rheumatica (principal); Z79.52 Long term (current) use of systemic steroids
CPT/HCPCS: 99214; G2211

== ENCOUNTER 2024-10-28 10:21 | Outpatient (REF) | payer MEDICARE, SELFPAY ==
[2024-10-28 13:11] LABS: MANUAL DIFF FLAG NO
[2024-10-28 13:13] LABS: Basophils Percent Auto 0.5 % (0-2); Eosinophils Absolute Auto 0.1 X10*3/uL (0.0-0.4); Eosinophils Percent Auto 1.4 % (0-4); Hematocrit 36.6 % (42.0-52.0); Hemoglobin 11.9 g/dl (14.0-18.0); Imm Gran Abs Auto 0.06 X10*3/uL (0.00-0.03); Lymphocytes Absolute Auto 1.8 X10*3/uL (1.2-4.9); Lymphocytes Percent Auto 30.2 % (20-40); Mean Corpuscular HGB Conc 32.5 g/dl (31.0-36.0); Mean Corpuscular Hemoglobin 29.2 pg (27.0-33.0); Mean Corpuscular Volume 89.9 fL (80.0-98.0); Mean Platelet Volume 8.3 fL (9.4-12.4); Monocytes Absolute Auto 0.3 X10*3/uL (0.1-1.2); Monocytes Percent Auto 4.6 % (2-11); Neutrophils Absolute Auto 3.7 x10*3/uL (2.0-8.3); Neutrophils Percent Auto 62.3 % (45-73); Platelet Count 292 X10*3/uL (160-400); Red Blood Count 4.07 X10*6/uL (4.60-5.80); Red Cell Distribution Width 18.9 % (11.0-16.0); White Blood Count 5.9 X10*3/uL (4.8-10.8)
[2024-10-28 13:25] LABS: Alanine Aminotransferase 11 U/L (0-40); Albumin Level 4.2 g/dL (3.5-5.0); Alkaline Phosphatase 79 U/L (39-117); Anion Gap 14 (12-20); Aspartate Amino Transferase 21 U/L (5-37); Bilirubin Total 0.5 mg/dL (0.0-1.0); Blood Urea Nitrogen 17 mg/dL (9-16); C Reactive Protein 1.67 mg/dL (< or = 0.50); Calcium 9.2 mg/dL (8.4-10.2); Carbon Dioxide 25 mmol/L (22-29); Chloride 102 mmol/L (96-108); Estimated Glomerular Filt Rate 59; Glucose Random 241 mg/dL (60-115); Potassium 4.6 mmol/L (3.3-5.1); Sodium 136 mmol/L (135-145); Total Protein 8.5 g/dL (6.5-8.0)
[2024-10-28 14:09] LABS: Erythrocyte Sedimentation Rate 58 MM/HR (0-15)
== END 2024-10-28 10:22 | disposition home or self-care (01) ==
LOC: HO.10HDL 10:21
PROVIDERS: Visit Provider Student in an Organized Health Care Education/Training Program
DX: M35.3 Polymyalgia rheumatica (principal); Z79.52 Long term (current) use of systemic steroids
CPT/HCPCS: 36415; 80053; 85025; 85652; 86140; 99212

== ENCOUNTER 2024-12-02 13:37 | Outpatient (AMB) | payer MEDICARE, SELFPAY ==
[2024-12-02 13:42] VITALS: BP 118/64; PULSE 76; O2SAT 97; BMI 27.6
--- NOTE | 2024-12-02 13:42 | A.OFFVIS_ITS ---
Vital Signs 12/02/24 13:42 Height 5 ft 10 in Weight 192 lb 10.944 oz BMI 27.6 BP 118/64 Blood Pressure Location Lt brachial Position Sitting Pulse 76 Pulse Source Pulse Oximeter Pulse Oximetry (%) 97 Oxygen Delivery Method Room Air Intake Visit Reasons: follow up Intake Note: Patient presents for follow up on PMR and lab review. He was last seen in the office by Dr. Johnson on 10/28/24. Allergies No Known Allergies Allergy (Verified 12/02/24 13:45) Medication List - Last Reconciled 12/02/24 by Augusta Johnson MD atorvastatin 40 mg PO DAILY doxycycline hyclate 100 mg PO DAILY empagliflozin (Jardiance) 25 mg PO DAILY metformin 1,000 mg PO BID prednisone 15 mg (3 x 5 mg) PO DAILY 4 weeks sarilumab (Kevzara) 200 mg (1.14 mL) subcut Q2W tramadol 50 - 100 mg PO QID PRN valsartan 160 mg PO DAILY HPI Comments Details: Patient is an 84-year-old male with hypertension, diabetes, hyperlipidemia, PMR and polyarticular osteoarthritis here today for follow-up Interval History: Patient last seen 10/28/2024 with me. At that time he was being followed up for bilateral shoulder pain and stiffness. He had erratic use of his prednisolone due to concerns about his blood sugar and he did not take the methotrexate. Discussed with the patient that time the nature of his disease and the agreement was for him to take the prednisone consistently. About 2 weeks after he noted having elevated blood sugars and the prednisone was stopped by his primary. He reached out to the office and he was started on Kevzara Patient has not started his Kevzara due to issues with pharmacy however it has been approved. Currently on 10 mg of prednisone. Symptoms have improved now complaining of bilateral knee pain (due for his gel injections) Rheumatologic History: Patient establish care 06/2024. Current working diagnosis of PMR based on elevated ESR/CRP, weight loss, fatigue and shoulder stiffness. 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 Pleural plaque Pneumonia Echocardiogram abnormal Umbilical hernia 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 Polyp of nasal cavity Osteoarthritis of both knees Osteoarthritis of both hands Onychomycosis Undescended left testicle Left ventricular hypertrophy Low vitamin B12 level Insomnia Hard of hearing Glenohumeral arthritis Glaucoma Fatty liver Hyperlipidemia Disorder of rotator cuff of both shoulders CKD stage G2/A2, GFR 60-89 and albumin creatinine ratio 30-299 mg/g CKD (chronic kidney disease) Chronic rhinitis Chronic back pain Chronic anemia Carpal tunnel syndrome Benign essential HTN Asthma Aortic valve stenosis Anxiety Family History Father History of arthritis Social History Household Members: Spouse Housing: House Alcohol intake: former Patient Tobacco Use Status: Former Tobacco user Years Smoked: 30 Review of Systems Const Details: Review of Systems Constitutional: Denies fever, chills, weight loss ENT: Denies vision changes, eye pain or eye redness, dental caries, dry mouth GI: Denies nausea, vomiting, diarrhea, abdominal pain, change in BM Pulm: Denies SOB, MELENDEZ, hemoptysis, wheezing Cards: Denies chest pain, palpitations Skin: Denies Raynaud's, rash, nail changes, photosensitivity, 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 Well appearing and in no apparent painful distress Bitemporal wasting Wasting noted to the thenar eminence bilaterally Wasting noted to the abductor pollicis brevis but not enough to cause a split hand syndrome CHEST/RESPIRATORY SYSTEM Normal respiratory effort and able to speak in complete sentences. ?Clear to auscultation bilaterally. ?No crackles, rales, rhonchi, wheezes heard. CARDIAC SYSTEM Regular rate and rhythm. ?Loud systolic murmur heard throughout pericardium MSK Hands: ?Diabetic cheiroarthropathy - positive prayer hand sign. Prominent Heberden nodes throughout bilateral hands on the DIPs. Prominent 2nd MCP joint without evidence of synovitis. Wrists: ?Full range of motion at the wrists without pain. ?No tenderness to palpation or synovitis noted to the wrists. Elbows: Full range of motion without pain. No tenderness, weakness, swelling, increased warmth or erythema. Shoulders: Full active and passive range of motion Tenderness to palpation of the AC joint Knees: ?Full range of motion. ?No tenderness, swelling, increased warmth or erythema. Bilateral crepitations Ankles: Full range of motion. ?No tenderness, swelling, increased warmth or erythema.? Feet: ?Negative squeeze test. ?No tenderness to palpation or swelling of the MTPs. Tender points:??No tenderness to palpation of the neck, shoulders, chest, elbows, hips, buttocks or knees. SKIN Skin intact without rashes. Results Reviewed Results Reviewed: Laboratory Tests 07/27/24 10/28/24 08:57 10:29 WBC 5.9 RBC 4.07 L Hgb 11.9 L Hct 36.6 L ESR 29 H 58 H Sodium 136 Potassium 4.6 Chloride 102 Carbon Dioxide 25 BUN 17 H Creatinine 1.18 AST 21 ALT 11 Alkaline Phosphatase 79 C-Reactive Protein 3.84 H 1.67 H Assessment & Plan Assessment & Plan (1) PMR (polymyalgia rheumatica): Comment: Ddx 07/2024 Prednisone 07/2024 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 - did not tolerate Kevzara 11/2024 Code(s): M35.3 - Polymyalgia rheumatica Category: Medical Plan: #PMR Patient is an 84-year-old male with bilateral shoulder and hip stiffness and pain with elevated inflammatory markers consistent with polymyalgia rheumatica. Initially started the patient on 20 mg of prednisone with good response however patient reported intolerable side effects of 20 mg of prednisone and self- discontinued at home. Based on that he was started on methotrexate however patient also did not start this medication. Due to his return of of pain he was restarted on a Prednisone at 15 mg however due to his elevated blood sugar it was decreased to 10 mg by the patient at home. Given his comorbidities I think it warrants starting Kevzara to aid in decreasing his prednisone requirements. Inflammatory markers have trended down nicely on the prednisone Plan - Continue prednisone 10mg daily - Kevzara 200mg SC every 2 weeks - RTC 3 months - Labs before visit: CBC, CMP, ESR, CRP, lipid panel, T spot, hepatitis panel (2) Osteoarthritis of both knees: Code(s): M17.0 - Bilateral primary osteoarthritis of knee Category: Medical Qualifiers: Osteoarthritis type: primary Qualified Code(s): M17.0 - Bilateral primary osteoarthritis of knee Plan: #Bilateral Knee OA Patient with bilateral knee OA gets regular gel injections. Last injection was 07/2024 and is due for another injection today. 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 Plan: #Long-term Use of Steroids Discussed with patient the risks and benefits of steroid for managing the rheumatic condition Benefits include: - Reduced pain, improved mobility, increased participation in activities, and decreased progression of disease Risks include: - GI upset, potential ultrasound worsening or formation (especially in patients > 65 years old), elevated blood pressure/worsening hypertension, elevated blood sugar/worsening diabetes control, worsening of bone density, elevated lipids/worsening triglycerides, cataract formation, weight gain Recommended using proton pump inhibitors (PPIs) for the duration of steroid use to reduce the risk of gastric ulcers and vitamin-D daily to reduce the risk of osteoporosis Labs checked: ?A1c, T spot, hepatitis-B and C serologies Pneumocystis jiroveci prophylaxis: ?Patient with risk factors including steroids greater than 50 mg for more than 30 days, age greater than 60 years, and lung involvement from underlying rheumatic disease requires prophylaxis and will be given so (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 ? Benefits include decreased pain, improved mortality, improved quality of life Risks include LFT abnormalities, elevated triglycerides, GI perforations Contraindicated in a patient with history of diverticulitis Monitoring: ?CBC, CMP, triglycerides Plan I spent 30 minutes reviewing the record and labs, taking a history, examining the patient, discussing the treatment plan, ordering diagnostic work up and documenting in the medical record Orders: Orders Comprehensive Met. Panel 3 Months M35.3 - Polymyalgia rheumatica C Reactive Protein 3 Months M35.3 - Polymyalgia rheumatica Lipid Panel 3 Months M35.3 - Polymyalgia rheumatica Hepatitis A,B,C Profile 3 Months M35.3 - Polymyalgia rheumatica T Spot TB 3 Months M35.3 - Polymyalgia rheumatica Complete Blood Count Auto Diff 3 Months M35.3 - Polymyalgia rheumatica Erythrocyte Sedimentation Rate 3 Months M35.3 - Polymyalgia rheumatica Medications: Changed From prednisone 15 mg (3 x 5 mg) PO DAILY 4 weeks 84 tabs 1RF M35.3 - Polymyalgia rheumatica To prednisone 10 mg (2 x 5 mg) PO DAILY 90 days 180 tabs 1RF M35.3 - Polymyalgia rheumatica Refilled sarilumab (Kevzara) 200 mg (1.14 mL) subcut Q2W 2.28 mL 5RF M35.3 - Polymyalgia rheumatica Coding Level of Care Code Est Pt Level 4 (23785) Complex EM visit Add On G2211 Diagnoses PMR (polymyalgia rheumatica) M35.3 Primary osteoarthritis of both knees M17.0 Osteoarthritis type: primary 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
== END 2024-12-02 14:11 | disposition home or self-care (01) ==
LOC: HO.RHE 13:38
PROVIDERS: PCP Nurse Practitioner Family; Visit Provider Student in an Organized Health Care Education/Training Program
DX: M35.3 Polymyalgia rheumatica (principal); M17.0 Bilateral primary osteoarthritis of knee; Z79.52 Long term (current) use of systemic steroids; Z79.620 Long term (current) use of immunosuppressive biologic
CPT/HCPCS: 99214; G2211

== ENCOUNTER → 2024-12-02 13:37 | Outpatient (BNVA) | payer MEDICARE, SELFPAY | PROVIDERS: PCP Nurse Practitioner Family; Visit Provider Student in an Organized Health Care Education/Training Program | DX: M17.0 Bilateral primary osteoarthritis of knee (principal); M35.3 Polymyalgia rheumatica; Z79.52 Long term (current) use of systemic steroids; Z79.620 Long term (current) use of immunosuppressive biologic | CPT/HCPCS: 99212 ==

== ENCOUNTER 2024-12-25 08:37 | Outpatient (AMB) | payer MEDICARE, SELFPAY ==
--- NOTE | 2024-12-25 08:43 | MHC.OFFVIS ---
Vital Signs 12/25/24 08:53 Height 5 ft 10 in Weight 185 lb 3.013 oz BMI 26.6 BP 90/58 L Blood Pressure Location Rt brachial Position Sitting Respiration 18 Pulse 94 Pulse Source Pulse Oximeter Pulse Oximetry (%) 98 Oxygen Delivery Method Room Air Intake Visit Reasons: bl knee durolane inj Intake Note: Patient presents for Bilateral Durolane injection follow up. Allergies No Known Allergies Allergy (Verified 12/02/24 13:45) Medication List - Last Reconciled 12/25/24 by Augusta Johnson MD atorvastatin 40 mg PO DAILY doxycycline hyclate 100 mg PO DAILY empagliflozin (Jardiance) 25 mg PO DAILY metformin 1,000 mg PO BID prednisone 10 mg (2 x 5 mg) PO DAILY 90 days sarilumab (Kevzara) 200 mg (1.14 mL) subcut Q2W tramadol 50 - 100 mg PO QID PRN valsartan 160 mg PO DAILY HPI Comments Details: Patient is an 84-year-old male with hypertension, diabetes, hyperlipidemia, PMR and polyarticular osteoarthritis here today for follow-up Interval History: Patient last seen 12/02/24 with me. At that time he was following up for PMR. He had not followed the prednisone regimen that I had given him because his blood sugar was elevated. He had not taken and methotrexate on the visit prior and was started on Kevzara the last visit but did not started due to issues with the pharmacy. His shoulder pain and stiffness however had improved but was complaining of bilateral knee pain since he was due for his gel injection. Discussed with the patient and his that he has polymyalgia rheumatica which requires treatment with prednisone but because of his comorbidities we will need to switch him to a medication that allows us to taper him off the prednisone more quickly. They agreed to start Kevzara once every 2 weeks. Today, Patient did not start the Kevzara because he was unclear about what it was to be used for. And also he decreased his prednisone from 10 mg to 5 mg. Here today also for his knee injections Rheumatologic History: Patient establish care 06/2024. Current working diagnosis of PMR based on elevated ESR/CRP, weight loss, fatigue and shoulder stiffness. 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 Pleural plaque Pneumonia Echocardiogram abnormal Umbilical hernia 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 Polyp of nasal cavity Osteoarthritis of both knees Osteoarthritis of both hands Onychomycosis Undescended left testicle Left ventricular hypertrophy Low vitamin B12 level Insomnia Hard of hearing Glenohumeral arthritis Glaucoma Fatty liver Hyperlipidemia Disorder of rotator cuff of both shoulders CKD stage G2/A2, GFR 60-89 and albumin creatinine ratio 30-299 mg/g CKD (chronic kidney disease) Chronic rhinitis Chronic back pain Chronic anemia Carpal tunnel syndrome Benign essential HTN Asthma Aortic valve stenosis Anxiety Family History Father History of arthritis Social History Household Members: Spouse Housing: House Alcohol intake: former Patient Tobacco Use Status: Former Tobacco user Years Smoked: 30 Review of Systems Const Details: Review of Systems Constitutional: Denies fever, chills, weight loss ENT: Denies vision changes, eye pain or eye redness, dental caries, dry mouth GI: Denies nausea, vomiting, diarrhea, abdominal pain, change in BM Pulm: Denies SOB, MELENDEZ, hemoptysis, wheezing Cards: Denies chest pain, palpitations Skin: Denies Raynaud's, rash, nail changes, photosensitivity, LEAD 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 Well appearing and in no apparent painful distress Bitemporal wasting Wasting noted to the thenar eminence bilaterally Wasting noted to the abductor pollicis brevis but not enough to cause a split hand syndrome CHEST/RESPIRATORY SYSTEM Normal respiratory effort and able to speak in complete sentences. ?Clear to auscultation bilaterally. ?No crackles, rales, rhonchi, wheezes heard. CARDIAC SYSTEM Regular rate and rhythm. ?Loud systolic murmur heard throughout pericardium MSK Hands: ?Diabetic cheiroarthropathy - positive prayer hand sign. Prominent Heberden nodes throughout bilateral hands on the DIPs. Prominent 2nd MCP joint without evidence of synovitis. Wrists: ?Full range of motion at the wrists without pain. ?No tenderness to palpation or synovitis noted to the wrists. Elbows: Full range of motion without pain. No tenderness, weakness, swelling, increased warmth or erythema. Shoulders: Full active and passive range of motion Knees: ?Full range of motion. ?No tenderness, swelling, increased warmth or erythema. Bilateral crepitations Ankles: Full range of motion. ?No tenderness, swelling, increased warmth or erythema.? Feet: ?Negative squeeze test. ?No tenderness to palpation or swelling of the MTPs. Tender points:??No tenderness to palpation of the neck, shoulders, chest, elbows, hips, buttocks or knees. SKIN Skin intact without rashes. Office Procedures AMB Joint Injection/Aspiration Joint Injection/Aspiration Details: Procedure was explained to the patient and consent was obtained. ? The area of interest was identified and confirmed with patient. ?This was subsequently cleaned with chlorhexidine x3. ? The area was then anesthetized using ethyl chloride spray. 3cc durolane was injected without issue. ?Minimal to no bleeding. ?Patient tolerated procedure. Primary Site: right knee Prep: site was prepped using aseptic technique and ethochloride spray was applied Injected: in the joint and other (3cc Durolane) Approach Used: anterior Procedure: The patient tolerated the procedure well Coding 57588 - Large joint Procedure code (CPT) selection complete AMB Joint Injection/Aspiration Joint Injection/Aspiration Details: Procedure was explained to the patient and consent was obtained. ? The area of interest was identified and confirmed with patient. ?This was subsequently cleaned with chlorhexidine x3. ? The area was then anesthetized using ethyl chloride spray. 3cc durolane was injected without issue. ?Minimal to no bleeding. ?Patient tolerated procedure. Primary Site: left knee Prep: site was prepped using aseptic technique and ethochloride spray was applied Injected: in the joint and other (3cc durolane) Approach Used: anterior Procedure: The patient tolerated the procedure well Coding 29867 - Large joint Procedure code (CPT) selection complete Office Meds Durolane 60 mg/3 mL intra-articular syringe Performing Provider: Augusta Johnson MD Performing Location: [facility] [place] Rhe[facility]ology Administered by: Augusta Johnson MD on 12/25/24 09:38 Dose Route Admin Location Dispensed Lot Number Expiration Date [employer] 60 mg intra-articular right knee 3 mL [id number] 05/18/27 [address]-1 [employer] Durolane 60 mg/3 mL intra-articular syringe Performing Provider: Augusta Johnson MD Performing Location: [facility] [place] Rhe[facility]ology Administered by: Augusta Johnson MD on 12/25/24 09:38 Dose Route Admin Location Dispensed Lot Number Expiration Date [employer] 60 mg intra-articular left knee 3 mL [id number] 05/18/27 [address]-5 [employer] Results Reviewed Results Reviewed: Laboratory Tests 07/27/24 10/28/24 08:57 10:29 WBC 5.9 RBC 4.07 L Hgb 11.9 L Hct 36.6 L ESR 29 H 58 H Sodium 136 Potassium 4.6 Chloride 102 Carbon Dioxide 25 BUN 17 H Creatinine 1.18 AST 21 ALT 11 Alkaline Phosphatase 79 C-Reactive Protein 3.84 H 1.67 H Assessment & Plan Assessment & Plan (1) PMR (polymyalgia rheumatica): Comment: Ddx 07/2024 Prednisone 07/2024 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 - did not tolerate Kevzara 11/2024 Code(s): M35.3 - Polymyalgia rheumatica Category: Medical Plan: #PMR Patient is an 84-year-old male with bilateral shoulder and hip stiffness and pain with elevated inflammatory markers consistent with polymyalgia rheumatica. Initially started the patient on 20 mg of prednisone with good response however patient reported intolerable side effects of 20 mg of prednisone and self-discontinued at home. Based on that he was started on methotrexate however patient also did not start this medication. Due to his return of of pain he was restarted on a Prednisone at 15 mg however due to his elevated blood sugar it was decreased to 10 mg by the patient at home. He was started on Kevzara however did not start it due to confusion as to the reason for the medication. And he self decreased his dose of prednisone to 5 mg daily. Today he reports improvement in his bilateral shoulder pain and stiffness and we will continue him on his 5 mg of prednisone. We will get blood work today and based on that we will re-evaluate starting Kevzara versus a slow prednisone taper Plan - Continue prednisone 5mg daily - labs today: CBC, CMP, ESR, CRP, lipid panel, T spot, hepatitis panel - depending on the results of the labs we will make a determination if we should continue with Kevzara or continue with a slow prednisone taper - RTC 4 months (2) Osteoarthritis of both knees: Code(s): M17.0 - Bilateral primary osteoarthritis of knee Category: Medical Qualifiers: Osteoarthritis type: primary Qualified Code(s): M17.0 - Bilateral primary osteoarthritis of knee Plan: #Bilateral Knee OA Patient with bilateral knee OA gets regular gel injections. Last injection was 07/2024 and is due for another injection today. 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: Code(s): Z79.52 - [facility] (current) use of systemic steroids Plan: #Long-term Use of Steroids Discussed with patient the risks and benefits of steroid for managing the rheumatic condition Benefits include: - Reduced pain, improved mobility, increased participation in activities, and decreased progression of disease Risks include: - GI upset, potential ultrasound worsening or formation (especially in patients > 65 years old), elevated blood pressure/worsening hypertension, elevated blood sugar/worsening diabetes control, worsening of bone density, elevated lipids/worsening triglycerides, cataract formation, weight gain Recommended using proton pump inhibitors (PPIs) for the duration of steroid use to reduce the risk of gastric ulcers and vitamin-D daily to reduce the risk of osteoporosis Labs checked: ?A1c, T spot, hepatitis-B and C serologies Pneumocystis jiroveci prophylaxis: ?Patient with risk factors including steroids greater than 50 mg for more than 30 days, age greater than 60 years, and lung involvement from underlying rheumatic disease requires prophylaxis and will be given so Plan I spent 30 minutes reviewing the record and labs, taking a history, examining the patient, discussing the treatment plan, ordering diagnostic work up and documenting in the medical record Orders: Orders C Reactive Protein Today M35.3 - Polymyalgia rheumatica Erythrocyte Sedimentation Rate Today M35.3 - Polymyalgia rheumatica T Spot TB Today M35.3 - Polymyalgia rheumatica Lipid Panel Today M35.3 - Polymyalgia rheumatica AMB Joint Injection/Aspiration Today M17.0 - Bilateral primary osteoarthritis of knee Complete Blood Count Auto Diff Today M35.3 - Polymyalgia rheumatica Comprehensive Met. Panel Today M35.3 - Polymyalgia rheumatica Hepatitis A,B,C Profile Today M35.3 - Polymyalgia rheumatica AMB Joint Injection/Aspiration Today M17.0 - Bilateral primary osteoarthritis of knee Medications: New Durolane (hyaluronate sodium, stabilized) 60 mg (3 mL) intra-articular ONCE 3 mL 0RF NS M17.0 - Bilateral primary osteoarthritis of knee Durolane (hyaluronate sodium, stabilized) 60 mg (3 mL) intra-articular ONCE 3 mL 0RF NS M17.0 - Bilateral primary osteoarthritis of knee Changed From prednisone 10 mg (2 x 5 mg) PO DAILY 90 days 180 tabs 1RF M35.3 - Polymyalgia rheumatica To prednisone 5 mg PO DAILY 90 days 90 tabs 1RF M35.3 - Polymyalgia rheumatica Coding Level of Care Code Est Pt Level 4 (54733) Complex EM visit Add On G2211 Diagnoses PMR (polymyalgia rheumatica) M35.3 Primary osteoarthritis of both knees M17.0 Osteoarthritis type: primary 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
[2024-12-25 08:53] VITALS: BP 90/58; PULSE 94; RESP 18; O2SAT 98; BMI 26.6
== END 2024-12-25 09:32 | disposition home or self-care (01) ==
LOC: HO.RHE 08:37
PROVIDERS: PCP Nurse Practitioner Family; Visit Provider Student in an Organized Health Care Education/Training Program
DX: M35.3 Polymyalgia rheumatica (principal); M17.0 Bilateral primary osteoarthritis of knee; Z79.52 Long term (current) use of systemic steroids
CPT/HCPCS: 20610; 99214

== ENCOUNTER → 2024-12-25 08:37 | Outpatient (BNVA) | payer MEDICARE, SELFPAY | PROVIDERS: PCP Nurse Practitioner Family; Visit Provider Student in an Organized Health Care Education/Training Program | DX: M17.0 Bilateral primary osteoarthritis of knee (principal); M35.3 Polymyalgia rheumatica; E78.5 Hyperlipidemia, unspecified; Z79.52 Long term (current) use of systemic steroids | CPT/HCPCS: 20610; 36415; 80053; 80061; 85025; 85652; 86140; 86481; 86704; 86706; 86709; 86803; 87340; 99212; J7318 ==

== ENCOUNTER 2024-12-25 09:38 | Outpatient (REF) | payer MEDICARE, SELFPAY ==
[2024-12-25 11:40] LABS: MANUAL DIFF FLAG NO
[2024-12-25 11:52] LABS: Basophils Absolute Auto 0.1 X10*3/uL (0.0-0.2); Basophils Percent Auto 0.8 % (0-2); Eosinophils Absolute Auto 0.1 X10*3/uL (0.0-0.4); Eosinophils Percent Auto 1.2 % (0-4); Hematocrit 38.5 % (42.0-52.0); Hemoglobin 12.8 g/dl (14.0-18.0); Imm Gran Abs Auto 0.12 X10*3/uL (0.00-0.03); Imm Gran Pct Auto 1.6 % (0.0-0.4); Lymphocytes Absolute Auto 3.1 X10*3/uL (1.2-4.9); Lymphocytes Percent Auto 40.3 % (20-40); Mean Corpuscular HGB Conc 33.2 g/dl (31.0-36.0); Mean Corpuscular Hemoglobin 28.6 pg (27.0-33.0); Mean Corpuscular Volume 85.9 fL (80.0-98.0); Mean Platelet Volume 8.9 fL (9.4-12.4); Monocytes Absolute Auto 0.5 X10*3/uL (0.1-1.2); Monocytes Percent Auto 6.5 % (2-11); Neutrophils Absolute Auto 3.8 x10*3/uL (2.0-8.3); Neutrophils Percent Auto 49.6 % (45-73); Platelet Count 278 X10*3/uL (160-400); Red Blood Count 4.48 X10*6/uL (4.60-5.80); Red Cell Distribution Width 18.2 % (11.0-16.0); White Blood Count 7.7 X10*3/uL (4.8-10.8)
[2024-12-25 12:17] LABS: Alanine Aminotransferase 14 U/L (0-40); Albumin Level 4.3 g/dL (3.5-5.0); Alkaline Phosphatase 96 U/L (39-117); Anion Gap 14 (12-20); Aspartate Amino Transferase 21 U/L (5-37); Bilirubin Total 0.7 mg/dL (0.0-1.0); Blood Urea Nitrogen 26 mg/dL (9-16); C Reactive Protein 1.29 mg/dL (< or = 0.50); Calcium 9.3 mg/dL (8.4-10.2); Carbon Dioxide 23 mmol/L (22-29); Chloride 98 mmol/L (96-108); Cholesterol 143 mg/dL (<200); Estimated Glomerular Filt Rate 48; Glucose Random 274 mg/dL (60-115); HDL Cholesterol 50 mg/dL (>40); LDL Cholesterol Calculated 63 mg/dL (<100); Potassium 4.2 mmol/L (3.3-5.1); Sodium 131 mmol/L (135-145); Total Protein 7.9 g/dL (6.5-8.0); Triglycerides 152 mg/dL (<150)
[2024-12-25 12:28] LABS: HBS Num1 0.01 mIU/mL (0-7.99); HBc Num1 0.13 S/CO (0.00-0.79); HBsAGNum1 0.33 S/CO (0.00-0.99); Hepatitis A Antibody IgM 0.13 Index (0-0.79); Hepatitis B Core Antibody Nonreactive (Nonreactive); Hepatitis B Surface Antigen Negative (Negative); ~HepC Num1 0.23 S/CO (0.00-0.79); ~Hepatitis A Antibody IgM Nonreactive (Nonreactive); ~Hepatitis B Surface Antibody NONREACTIVE (Nonreactive); ~Hepatitis C Antibody Nonreactive (Nonreactive)
[2024-12-25 12:29] LABS: Erythrocyte Sedimentation Rate 34 MM/HR (0-15)
[2024-12-28 17:58] LABS: TS Negative Control Passed; TS Panel A 0; TS Panel B 0; TS Positive Control Passed; TSpotTB Negative (Negative)
== END 2024-12-25 09:39 | disposition home or self-care (01) ==
LOC: HO.10HDL 09:38
PROVIDERS: Visit Provider Student in an Organized Health Care Education/Training Program
DX: Z13.89 Encounter for screening for other disorder (principal)
CPT/HCPCS: 36415; 80053; 80061; 85025; 85652; 86140; 86481; 86704; 86706; 86709; 86803; 87340

== ENCOUNTER 2025-02-03 12:45 | Outpatient (AMB) | payer MEDICARE, SELFPAY ==
[2025-02-03 12:49] VITALS: BP 100/66; PULSE 84; O2SAT 97; BMI 27.1
--- NOTE | 2025-02-03 12:49 | MHC.OFFVIS ---
Vital Signs 02/03/25 12:49 Height 5 ft 10 in Weight 189 lb 2.506 oz BMI 27.1 BP 100/66 Blood Pressure Location Lt brachial Position Sitting Pulse 84 Pulse Source Pulse Oximeter Pulse Oximetry (%) 97 Oxygen Delivery Method Room Air Intake Visit Reasons: knee injection Intake Note: Patient is here for bilateral knee injection. Improvement Director Required: No Accompanied by: Spouse Allergies No Known Allergies Allergy (Verified 12/02/24 13:45) Medication List - Last Reconciled 02/03/25 by Augusta Johnson MD atorvastatin 40 mg PO DAILY doxycycline hyclate 100 mg PO DAILY empagliflozin (Jardiance) 25 mg PO DAILY metformin 1,000 mg PO BID prednisone 5 mg PO DAILY 90 days tramadol 50 - 100 mg PO QID PRN valsartan 160 mg PO DAILY HPI Comments Details: Patient is an 84-year-old male with hypertension, diabetes, hyperlipidemia, PMR and polyarticular osteoarthritis here today for urgent visit Interval History: Patient last seen 12/25/24 with me. At that time he did not start the Kevzara and decreased his prednisone from 10mg to 5mg without consulting the provider. Given the hesitation with starting Kevzara decision made to continue the prednisone monotherapy with plan to taper the dose at the next visit in 4 months He also received bilateral durolane injections at that visit About 1 month after the injections patient complained of return of knee pain He is here today for urgent visit for bilateral knee pain Rheumatologic History: Patient establish care 06/2024. Current working diagnosis of PMR based on elevated ESR/CRP, weight loss, fatigue and shoulder stiffness. 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 Pleural plaque Pneumonia Echocardiogram abnormal Umbilical hernia 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 Polyp of nasal cavity Osteoarthritis of both knees Osteoarthritis of both hands Onychomycosis Undescended left testicle Left ventricular hypertrophy Low vitamin B12 level Insomnia Hard of hearing Glenohumeral arthritis Glaucoma Fatty liver Hyperlipidemia Disorder of rotator cuff of both shoulders CKD stage G2/A2, GFR 60-89 and albumin creatinine ratio 30-299 mg/g CKD (chronic kidney disease) Chronic rhinitis Chronic back pain Chronic anemia Carpal tunnel syndrome Benign essential HTN Asthma Aortic valve stenosis Anxiety Family History Father History of arthritis Social History Household Members: Spouse Housing: House Alcohol intake: former Patient Tobacco Use Status: Former Tobacco user Years Smoked: 30 Review of Systems Const Details: Review of Systems Constitutional: Denies fever, chills, weight loss ENT: Denies vision changes, eye pain or eye redness, dental caries, dry mouth GI: Denies nausea, vomiting, diarrhea, abdominal pain, change in BM Pulm: Denies SOB, MELENDEZ, hemoptysis, wheezing Cards: Denies chest pain, palpitations Skin: Denies Raynaud's, rash, nail changes, photosensitivity, CHILD SUPPORT INVESTIGATOR: Denies headaches, weakness, paresthesias, recurrent falls MSK: as per HPI All other systems reviewed and are unremarkable except noted above Physical Exam Vital Signs: Last Vital Signs Pulse 84 02/03/25 12:49 BP 100/66 02/03/25 12:49 Pulse Ox 97 02/03/25 12:49 Oxygen Delivery Method Room Air 02/03/25 12:49 BMI result Body Mass Index 27.1 Vital signs reviewed Physical Examination Knees: ?Full range of motion. ?No tenderness, swelling, increased warmth or erythema. Bilateral crepitations Office Procedures AMB Joint Injection/Aspiration Joint Injection/Aspiration Details: Procedure was explained to the patient and informed consent was obtained. ? Risks associated with the procedure were discussed with the patient including but not limited to bleeding, infection, drug reactions and reactions to the topical anesthetic. Patient made aware of signs to look out for infectious complications. The area of interest was identified and confirmed with patient. ?This was subsequently cleaned with chlorhexidine x3. ? The area was then anesthetized using ethyl chloride spray. 40 mg Kenalog with 1 cc 1% lidocaine was injected without issue. ?Minimal to no bleeding. ?Patient tolerated procedure. Primary Site: right knee Prep: site was prepped using aseptic technique and ethochloride spray was applied Injected: 40 mg of, Kenalog, with 1 mL of and 1% plain lidocaine Approach Used: anterolateral Procedure: The patient tolerated the procedure well Coding 36962 - Large joint Procedure code (CPT) selection complete AMB Joint Injection/Aspiration Joint Injection/Aspiration Details: Procedure was explained to the patient and informed consent was obtained. ? Risks associated with the procedure were discussed with the patient including but not limited to bleeding, infection, drug reactions and reactions to the topical anesthetic. Patient made aware of signs to look out for infectious complications. The area of interest was identified and confirmed with patient. ?This was subsequently cleaned with chlorhexidine x3. ? The area was then anesthetized using ethyl chloride spray. 40 mg Kenalog with 1 cc 1% lidocaine was injected without issue. ?Minimal to no bleeding. ?Patient tolerated procedure. Primary Site: left knee Prep: site was prepped using aseptic technique and ethochloride spray was applied Injected: 40 mg of, Kenalog, with 1 mL of and 1% plain lidocaine Approach Used: anterolateral Procedure: The patient tolerated the procedure well Coding 63113 - Large joint Procedure code (CPT) selection complete Office Meds lidocaine (PF) 10 mg/mL (1 %) injection solution Performing Provider: Augusta Johnson MD Performing Location: [facility] [place] Rheumatology Administered by: Augusta Johnson MD on 02/03/25 15:17 Dose Route Admin Location Dispensed Lot Number Expiration Date [facility] Field Professional 1 mL Infiltration right knee 2 mL [id number] 11/17/26 33700-231-63 [employer] Total Dispensed Waste 2 mL 50 % Kenalog 40 mg/mL suspension for injection Performing Provider: Augusta Johnson MD Performing Location: [facility] [place] Rheumatology Administered by: Augusta Johnson MD on 02/03/25 15:17 Dose Route Admin Location Dispensed Lot Number Expiration Date [facility] Field Professional 40 mg intra-articular right knee 1 mL [id number] 02/16/26 [address]-9 [employer] Total Dispensed Waste 1 mL 0 % lidocaine (PF) 10 mg/mL (1 %) injection solution Performing Provider: Augusta Johnson MD Performing Location: [facility] [place] Rheumatology Administered by: Augusta Johnson MD on 02/03/25 15:17 Dose Route Admin Location Dispensed Lot Number Expiration Date [facility] Field Professional 1 mL intra-articular left kneee 2 mL [id number] 11/17/26 89000-056-98 [employer] Total Dispensed Waste 2 mL 50 % Kenalog 40 mg/mL suspension for injection Performing Provider: Augusta Johnson MD Performing Location: [facility] [place] Rheumatology Administered by: Augusta Johnson MD on 02/03/25 15:17 Dose Route Admin Location Dispensed Lot Number Expiration Date [employer] 40 mg intra-articular left knee 1 mL [id number] 02/16/26 [address]-4 [employer] Total Dispensed Waste 1 mL 0 % Assessment & Plan Assessment & Plan (1) Osteoarthritis of both knees: Code(s): M17.0 - Bilateral primary osteoarthritis of knee Category: Medical Qualifiers: Osteoarthritis type: primary Qualified Code(s): M17.0 - Bilateral primary osteoarthritis of knee Plan: #Bilateral knee OA Patient with bilateral knee OA Had Durolane injections 12/2024 but this did not provide sustained relief Given steroid injections today Hopefully this will give him relief until he can receive injections in 04/2025 with gel 1 Plan - Gel 1 injections 04/2025 - Follow up PMR sx at next visit - S/p bilateral steroid injections today - RTC 04/2025 Plan I spent 20 minutes reviewing the record and labs, taking a history, examining the patient, discussing the treatment plan, ordering diagnostic work up and documenting in the medical record Orders: Orders AMB Joint Injection/Aspiration Today M17.0 - Bilateral primary osteoarthritis of knee AMB Joint Injection/Aspiration Today M17.0 - Bilateral primary osteoarthritis of knee Coding Level of Care Code Est Pt Level 3 (31780) Diagnoses Primary osteoarthritis of both knees M17.0 Osteoarthritis type: primary CPT Codes Coding - 57925 Large joint: 83273 - Large joint ([id number]) Coding - 43056 Large joint: 60009 - Large joint ([id number])
--- OUTSIDE RECORDS SUMMARY | 2025-02-03 14:35 | XMS_ITS | Patient Health Record ---
[facility] Bolden Address [address] [facility] [place] [address] Care Team Providers Care Securities Dealer Name Role Phone Inessa MCINTOSH, [place] Primary Care Provider Emile Rios Unavailable [phone] Reason For Referral No Information Medications Medication SIG (Take, Route, Frequency, Duration) Notes Start Date End Date Status Crestor 20 MG 1 tablet Orally Once a day Active Extra-Depth Diabetic Shoes with 3 Pair Custom heat-molded multi-density innersoles . for 1 year . Dx:please accomodate for painful right 2nd and 3rd mtpj's right foot with met pads for . 10/06/2014 Active Metformin & Diet Manage Prod 500 MG Orally Active traMADol HCl Active flovent HFA Active Diovan 160 MG 1 tablet Orally Once a day Active Combivent Active Problems Problem Type SNOMED Code ICD Code Onset Dates Problem Status W/U Status Risk Notes Problem Onychomycosis (021111151) Onychomycosis (110.1) Active confirmed Problem Pain in limb (63928006) Pain in Limb (729.5) Active confirmed Problem Disorder of joint of ankle and/or foot (799251333) Arthritis - Degenerative (719.97) Active confirmed Problem Hammer toe (489568232) Hammer toe (735.4) Active confirmed Problem Pain in limb (76143144) Pain in Limb (729.5) Active confirmed Problem Neurologic disorder associated with type II diabetes mellitus (021096486) 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 Problem Keratoma (11880865) 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.1) Active confirmed Plan Of Treatment Pending Test Test Name Order Date X ray : Foot, right 2V 10/06/2014 [id number] NAIL, 6 OR MORE 10/06/2014 [id number] SKIN LESIONS, OVER 4 10/06/19 15 Insurance Providers Payer Name Payer Address Payer Phone Subscriber Number Group Number Insured Name Patient Relationship to Insured Coverage Start Date Coverage End Date [facility] [address] [facility] [place] [id number] Scottie Beth Self - patient is the insured Medical (General) History Medical History History ICD Code Arthritis asthma chronic sinusitis
== END 2025-02-03 13:38 | disposition home or self-care (01) ==
LOC: HO.RHE 12:46
PROVIDERS: PCP Nurse Practitioner Family; Visit Provider Student in an Organized Health Care Education/Training Program
DX: M17.0 Bilateral primary osteoarthritis of knee (principal)
CPT/HCPCS: 20610; 99213

== ENCOUNTER → 2025-02-03 12:45 | Outpatient (BNVA) | payer MEDICARE, SELFPAY | PROVIDERS: PCP Nurse Practitioner Family; Visit Provider Student in an Organized Health Care Education/Training Program | DX: M17.0 Bilateral primary osteoarthritis of knee (principal) | CPT/HCPCS: 20610; 99212; J3300 ==

== ENCOUNTER 2025-02-15 18:09 | Emergency (ER) | payer MEDICARE, SELFPAY ==
[2025-02-15] VITALS (10 sets, daily range): BP systolic 87–108; BP diastolic 46–68; PULSE 91–120; RESP 19–29; TEMP 36.7–39.4; O2SAT 95–100; BMI 26.6
--- NOTE | ~2025-02-15 | XR_ITS ---
CLINICAL HISTORY: sob, covid 1 view chest x-ray Comparison: CR/SR - XR CHEST 2V - 01/18/23 00:11 EDT Findings: The lungs are clear. No pleural effusion or pneumothorax. Pleural plaques again noted. Heart size is normal. No acute fracture. IMPRESSION: 1. No acute findings. This document has been electronically signed by: Bairon Cruz MD on 02/15/2025 22:24:02
--- NOTE | 2025-02-15 18:17 | ECG_ITS ---
Test Reason : FALL DIZZY Blood Pressure : */* mmHG Vent. Rate : 104 BPM Atrial Rate : * BPM P-R Int : * ms QRS Dur : 96 ms QT Int : 334 ms P-R-T Axes : * -25 46 degrees QTcB Int : 439 ms Undetermined rhythm Possible Accelerated Junctional rhythm with Premature atrial complexes Abnormal ECG When compared with ECG of 15-Sep-2024 11:32, Accelerated Junctional rhythm has replaced Sinus rhythm Non-specific change in ST segment in Lateral leads Referred By: Generic ED Physician Electronically Signed By: LISA JACKSON MD
[2025-02-15 18:42] LABS: MANUAL DIFF FLAG NO
[2025-02-15 18:44] LABS: Hematocrit 34.6 % (42.0-52.0); Hemoglobin 11.8 g/dl (14.0-18.0); Imm Gran Abs Auto 0.15 X10*3/uL (0.00-0.03); Imm Gran Pct Auto 2.7 % (0.0-0.4); Lymphocytes Absolute Auto 1.0 X10*3/uL (1.2-4.9); Mean Corpuscular HGB Conc 34.1 g/dl (31.0-36.0); Mean Corpuscular Hemoglobin 28.6 pg (27.0-33.0); Mean Corpuscular Volume 83.8 fL (80.0-98.0); NRBC Abs Auto 0.000 X10*3/uL (0.0-0.012); NRBC Pct Auto 0.0 /100WBC (0.0-0.2); Platelet Count 227 X10*3/uL (160-400); Red Blood Count 4.13 X10*6/uL (4.60-5.80); White Blood Count 5.6 X10*3/uL (4.8-10.8)
[2025-02-15 18:59] LABS: Alanine Aminotransferase 11 U/L (0-40); Albumin Level 4.3 g/dL (3.5-5.0); Alkaline Phosphatase 84 U/L (39-117); Anion Gap 15 (12-20); Aspartate Amino Transferase 21 U/L (5-37); Blood Urea Nitrogen 24 mg/dL (9-16); Calcium 8.9 mg/dL (8.4-10.2); Carbon Dioxide 21 mmol/L (22-29); Chloride 102 mmol/L (96-108); Creatinine Clr Calc Pharmacy 42.7; Estimated Glomerular Filt Rate 53; Potassium 5.0 mmol/L (3.3-5.1); Sodium 133 mmol/L (135-145); Total Protein 7.5 g/dL (6.5-8.0)
[2025-02-15 19:06] LABS: Troponin-I High Sensitivity 39.0 ng/L (<3.5-35.0)
--- NOTE | 2025-02-15 19:39 | ED.DIZZY ---
HPI - Dizziness General Chief Complaint: Dizziness Stated Complaint: DIZZINESS/CLAMMY Time Seen by Provider: 02/15/25 19:39 Source: patient and family Mode of arrival: EMS Limitations: no limitations History of Present Illness ED Provider: HPI Narrative: Patient is diabetic with hx of polymyalgia rheumatica in his stable has a come here because he been feeling dizzy lightheaded for last 3 days got worse today patient has felt very weak in lead himself down to the ground no loss of consciousness no chest pain also patient has been having chills and low-grade fever but to 3 days does have occasional cough no urinary symptoms no abdominal pain does have some nausea Related Data Home Medications ?Medication ?Instructions ?Recorded ?Confirmed atorvastatin 40 mg tablet 40 mg PO DAILY 07/02/24 02/03/25 empagliflozin 25 mg tablet 25 mg PO DAILY 07/02/24 02/03/25 (Jardiance) metformin 500 mg tablet 1,000 mg PO BID 07/02/24 02/03/25 tramadol 50 mg tablet 50 - 100 mg PO QID PRN 07/02/24 02/03/25 valsartan 160 mg tablet 160 mg PO DAILY 07/02/24 02/03/25 Previous Rx's ?Medication ?Instructions ?Recorded doxycycline hyclate 100 mg tablet 100 mg PO DAILY #14 tabs 09/10/24 prednisone 5 mg tablet 5 mg PO DAILY 90 days #90 tabs 12/25/24 Allergies Allergy/AdvReac Type Severity Reaction Status Date / Time No Known Allergies Allergy Verified 02/15/25 18:30 Review of Systems Review of Systems: Yes all other systems are reviewed and are negative [facility] Past Medical History Medical History PMR (polymyalgia rheumatica) 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 Pleural plaque Pneumonia Echocardiogram abnormal Umbilical hernia 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 Polyp of nasal cavity Osteoarthritis of both knees Osteoarthritis of both hands Onychomycosis Undescended left testicle Left ventricular hypertrophy Low vitamin B12 level Insomnia Hard of hearing Glenohumeral arthritis Glaucoma Fatty liver Hyperlipidemia Disorder of rotator cuff of both shoulders CKD stage G2/A2, GFR 60-89 and albumin creatinine ratio 30-299 mg/g CKD (chronic kidney disease) Chronic rhinitis Chronic back pain Chronic anemia Carpal tunnel syndrome Benign essential HTN Asthma Aortic valve stenosis Anxiety Family History Family History Father History of arthritis Social History Social History Household Members: Spouse Housing: House Alcohol intake: former Patient Tobacco Use Status: Former Tobacco user Years Smoked: 30 Physical Exam Vital Signs: Vital Signs: Last Vital Signs Temp 98.0 F 02/16/25 01:23 Pulse 109 H 02/16/25 01:23 Resp 20 02/16/25 01:23 BP 96/55 L 02/16/25 01:23 Pulse Ox 93 02/16/25 01:23 O2 Del Method Room Air 02/16/25 01:23 BMI result Body Mass Index 26.6 Appearance: Alert. Oriented X3. No acute distress. Eyes: PERRLA, No Nystagmus ENT: Pharynx normal. Oral Mucosa Dry Neck: Normal inspection. Neck supple. CVS: Normal heart rate and rhythm. Pulses normal. Respiratory: No respiratory distress. Equal air entry bilateral, no wheezing/rales/rhonchi Abdomen: Soft and nontender. Bowel sounds are present, no mass palpable, no CVA tenderness Skin: Skin warm and dry. Normal skin color. Normal skin turgor. Extremities: No lower extremity edema. No calf tenderness Neuro: Oriented X 3. No motor deficit. No sensory deficit.No cerebellar signs , cranial nerves II-XII intact Medications Administered Discontinued Medications Generic Name Dose Route Start Last Admin Trade Name Freq PRN Reason Stop Dose Admin Acetaminophen 650 mg 02/15/25 19:47 02/15/25 19:55 Acetaminophen 325 Mg Tablet PO 02/15/25 19:48 650 mg ONCE ONE Administration Ceftriaxone Sodium 1 gm 02/15/25 20:05 02/15/25 20:11 Ceftriaxone Sodium 1 Gm Vial IVPUSH 02/15/25 20:06 1 gm ONCE ONE Administration Sodium Chloride 1,000 mls @ 999 mls/hr 02/15/25 19:47 02/15/25 21:15 Ns IV 02/15/25 20:47 Infused .Q1H1M ONE Infusion Sodium Chloride 1,000 mls @ 999 mls/hr 02/15/25 20:05 02/15/25 21:14 Ns IV 02/15/25 21:05 Infused .Q1H1M ONE Infusion Lactated Ringer's 1,000 mls @ 999 mls/hr 02/15/25 22:33 02/16/25 00:15 Lr IVCONT 02/15/25 23:33 Infused .Q1H1M ONE Infusion Medical Decision Making Medical Decision Making MDM Narrative: Patient with increased lethargy fever near-syncope noted to have COVID positive responded to IV fluids chest x-ray negative for acute no other source of infection noticed. Patient after receiving IV fluids feeling much better discharge patient home advised to keep hydrated and follow up with PCP as needed no shortness a breath noticed in the ER patient is saturating 94-95% at room air Differential Diagnosis Differential Diagnoses: The differential diagnosis associated with the presentation includes Pneumonia/bacteremia/atypical pneumonia/COVID/metabolic encephalopathy/cardiac Admission/Observation Consideration of admission/observation: Escalation of care including admission/observation considered Lab Data [facility] Lab Attestation statement: I reviewed the patient's lab results. 02/15/25 18:38 02/15/25 18:38 Labs: Lab Results 02/15/25 02/15/25 02/15/25 Range/Units 18:38 20:09 20:51 WBC 5.6 (4.8-10.8) X10*3/uL RBC 4.13 L (4.60-5.80) X10*6/uL Hgb 11.8 L (14.0-18.0) g/dl Hct 34.6 L (42.0-52.0) % MCV 83.8 (80.0-98.0) fL MCH 28.6 (27.0-33.0) pg MCHC 34.1 (31.0-36.0) g/dl RDW 18.1 H (11.0-16.0) % Plt Count 227 (160-400) X10*3/uL MPV 8.5 L (9.4-12.4) fL Immature Gran % (Auto) 2.7 H (0.0-0.4) % Neut % (Auto) 64.2 (45-73) % Lymph % (Auto) 17.4 L (20-40) % [place] % (Auto) 13.6 H (2-11) % Eos % (Auto) 1.4 (0-4) % Baso % (Auto) 0.7 (0-2) % Lymph # (Auto) 1.0 L (1.2-4.9) X10*3/uL [place] # (Auto) 0.8 (0.1-1.2) X10*3/uL Eos # (Auto) 0.1 (0.0-0.4) X10*3/uL Baso # (Auto) 0.0 (0.0-0.2) X10*3/uL Abs Immat Gran (auto) 0.15 H (0.00-0.03) X10*3/uL Absolute Neuts (auto) 3.6 (2.0-8.3) x10*3/uL Absolute Nucleated RBC 0.000 (0.0-0.012) X10*3/uL Nucleated RBC % (auto) 0.0 (0.0-0.2) /100WBC Sodium 133 L (135-145) mmol/L Potassium 5.0 (3.3-5.1) mmol/L Chloride 102 (96-108) mmol/L Carbon Dioxide 21 L (22-29) mmol/L Anion Gap 15 (12-20) BUN 24 H (9-16) mg/dL Creatinine 1.28 (0.5-1.4) mg/dL Estim Creat Clear Calc 42.7 Estimated GFR 53 Random Glucose 220 H (60-115) mg/dL Lactic Acid 2.0 (0.5-2.0) mmol/L Calcium 8.9 (8.4-10.2) mg/dL Total Bilirubin 0.6 (0.0-1.0) mg/dL AST 21 (5-37) U/L ALT 11 (0-40) U/L Alkaline Phosphatase 84 (39-117) U/L Troponin I High Sens 39.0 H D (<3.5-35.0) ng/L Total Protein 7.5 (6.5-8.0) g/dL Albumin 4.3 (3.5-5.0) g/dL Urine Color Yellow Urine Appearance Clear Urine pH 5.5 (5.0-9.0) Ur Specific [place] 1.025 (1.005-1.025) Urine Protein Trace (Neg-Trace) mg/dL Urine Glucose (UA) >=1000 H (Negative) mg/dL Urine Ketones Negative (Negative) mg/dL Urine Blood Negative (Negative) Urine Nitrite Negative (Negative) Ur Leukocyte Esterase Negative (Negative) Urine RBC 0-2 (0-2) /HPF Urine WBC 0-5 (0-5) /HPF Ur Squamous Epith Cells 0-2 (0-2) /HPF Urine Bacteria None Seen (None Seen) Hyaline Casts 0-2 (0-2) /LPF Influenza Type A (PCR) NEGATIVE (Negative) Influenza Type B (PCR) NEGATIVE (Negative) RSV RNA Qual (PCR) NEGATIVE (Negative) SARS-CoV-2 RNA (RT-PCR) POSITIVE A (Negative) Independent Interpretation I performed an independent interpretation of an: EKG Interpretation: Sinus tachycardia with heart rate of 104 beats per minute, no acute ST-T changes no acute ischemia Radiology Impression Discussion of test interpretation with radiology: I have reviewed the radiologist's reading. Radiologist Impression: No acute Critical Care Time Critical Care Time Critical Care Time: Yes Total Critical Care Time: 55 Attestation: Time is exclusive of separately billable procedures. Time includes: direct patient care, patient reassessment, coordination of patient care, interpretation of data (laboratory data, pulse oximetry, arterial blood gases and chest xrays), review of patient's medical records, medical consultation and documentation of patient care. Procedures excluded from critical care time: central intravenous line placement and electrocardiography. Discharge Plan Discharge Clinical Impression: COVID-19 Patient Disposition: Home, Self-Care Instructions: COVID-19 (Coronavirus Disease 2019) (ED) Additional Instructions: Drink plenty of fluids Social distancing as advised Take Tylenol/Motrin for body aches or fever Follow up with your PCP Report to ER if increased shortness a breath Prescriptions: No Action doxycycline hyclate 100 mg tablet 100 mg PO DAILY Qty: 14 0RF prednisone 5 mg tablet 5 mg PO DAILY 90 Days Qty: 90 1RF valsartan 160 mg tablet 160 mg PO DAILY tramadol 50 mg tablet 50 - 100 mg PO QID PRN Jardiance 25 mg tablet 25 mg PO DAILY atorvastatin 40 mg tablet 40 mg PO DAILY metformin 500 mg tablet 1,000 mg PO BID Interventions: ED Discharge Assessment Last Done: 02/16/25 01:23 Discharge Date/Time: 02/16/25 01:23 Print Language: Bulgarian
--- NOTE | 2025-02-15 19:51 | PC.NURSE ---
Took over care from ELMIRA Davila at 19:00, provider into see pt, new labs ordered
--- NOTE | 2025-02-15 19:56 | PC.NURSE ---
Pt has a rectal temp of 103. reported to Nelson Hansen
[2025-02-15 20:53] LABS: Resp Syncy Virus RNA Qual PCR NEGATIVE (Negative); SARS COV2 PCR INHOUSE POSITIVE (Negative)
[2025-02-15 21:02] LABS: Appearance Urine Clear; Glucose Urine UA >=1000 mg/dL (Negative); PH 5.5 (5.0-9.0); Specific Gravity - Urine 1.025 (1.005-1.025); UMIC TRIGGER UACC YES
--- NOTE | 2025-02-15 21:35 | PC.NURSE ---
vital taken, pt placed on precaution for covid
[2025-02-15] MEDS: Lactated Ringers 1,000 ML 999 ML IVCONT (22:37)
--- NOTE | 2025-02-15 22:39 | PC.NURSE ---
medicated per mar.
[2025-02-16 00:05] VITALS: BP 103/64; PULSE 101
[2025-02-16 00:07] VITALS: BP 98/68; PULSE 104
[2025-02-16 00:10] VITALS: BP 96/55; PULSE 109
[2025-02-16 00:13] VITALS: BP 96/55; PULSE 109; RESP 20; TEMP 36.7; O2SAT 93
--- NOTE | 2025-02-16 01:21 | PC.NURSE ---
Reviewed discharge instructions with pt, pt verbalized understanding, no sign of distress, pt wheel out to car by this RN
[2025-02-16 01:23] VITALS: BP 96/55; PULSE 109; RESP 20; TEMP 36.7; O2SAT 93
== END 2025-02-16 01:23 | disposition home or self-care (01) ==
PROVIDERS: Emergency Provider Internal Medicine
DX: U07.1 COVID-19 (principal); R42 Dizziness and giddiness; Z79.899 Other long term (current) drug therapy
CPT/HCPCS: 36415; 71045; 80053; 81001; 83605; 84484; 85025; 87040; 87637; 93005; 96361; 96374; 99284; 99285; J0696; J7120

== ENCOUNTER → 2025-02-15 18:17 | Outpatient (BNV) | payer MEDICARE, SELFPAY | PROVIDERS: Emergency Provider Internal Medicine; Visit Provider Internal Medicine Cardiovascular Disease | DX: R94.31 Abnormal electrocardiogram [ECG] [EKG] (principal); R42 Dizziness and giddiness; W19.XXXA Unspecified fall, initial encounter | CPT/HCPCS: 93010 ==

== ENCOUNTER → 2025-02-15 21:51 | Outpatient (BNV) | payer MEDICARE, SELFPAY | PROVIDERS: Emergency Provider Internal Medicine; Visit Provider Radiology Diagnostic Radiology | DX: E11.9 Type 2 diabetes mellitus without complications (principal); R06.02 Shortness of breath; U07.1 COVID-19 | CPT/HCPCS: 71045 ==

== ENCOUNTER 2025-02-22 07:29 | Emergency (ER) | payer MEDICARE, SELFPAY ==
[2025-02-22] VITALS (7 sets, daily range): BP systolic 99–131; BP diastolic 56–68; PULSE 74–92; RESP 14–18; TEMP 36.7–36.8; O2SAT 97–100; BMI 23.4
--- NOTE | 2025-02-22 | ECG_ITS ---
Test Reason : dizziness Blood Pressure : */* mmHG Vent. Rate : 82 BPM Atrial Rate : 82 BPM P-R Int : 250 ms QRS Dur : 92 ms QT Int : 390 ms P-R-T Axes : 33 -25 47 degrees QTcB Int : 455 ms Sinus rhythm with 1st degree A-V block with occasional Premature ventricular complexes Incomplete right bundle branch block Septal infarct , age undetermined Abnormal ECG When compared with ECG of 15-Feb-2025 18:22, Sinus rhythm has replaced Atrial fibrillation Referred By: Generic ED Physician Electronically Signed By: Declan Field
--- NOTE | ~2025-02-22 | CT_ITS ---
EXAMINATION: CT ANGIOGRAM CHEST CLINICAL INFORMATION: Shortness of breath, chest pain, Covid, right rib pain status post fall. 85-year-old male. COMPARISON: None available. TECHNIQUE: Multiple axial images were obtained through the chest after the administration of 65 mL of Omnipaque 350 intravenous contrast. Extensive vascular post-processing including two-dimensional and three-dimensional reformatted images were created and reviewed on an independent workstation. This CT examination was performed using dose optimization techniques as appropriate, variously including the following: *Automated exposure control *Adjustment of mA and/or kV according to patient size (this includes techniques or standardized protocols for targeted exams where dose is matched to indication/reason for exam; i.e. extremities or head) *Use of iterative reconstruction technique FINDINGS: VASCULAR: Contrast opacification of the pulmonary arterial system is diagnostic. There is mild limitation from respiratory motion artifact, most notable in the lower lungs. There is no evidence of pulmonary embolus. Normal caliber main pulmonary artery. There is no definite right heart strain. There is mild contrast reflux into the hepatic IVC, indicating possible increased right heart pressures. The ascending aorta is mildly aneurysmal at 4.4 cm diameter. No evidence of acute aortic syndrome. There is moderate atheromatous plaque present. Great vessels branch normally. Heart size is normal. No pericardial effusion. There is calcification of the aortic valve leaflets and aortic annulus, which could indicate aortic stenosis. Calcification of the mitral annulus. Heavy coronary calcifications. LUNGS: There is mild to moderate centrilobular emphysema. 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 There is mild scarring in the bilateral lower lobes. There is mild mosaic attenuation, likely on the basis of air trapping. Small airways demonstrate mild diffuse thickening. Central airways are patent. Partial expiratory appearance of the trachea. No pneumothorax or effusion. No consolidation. MEDIASTINUM: Normal thyroid. There are numerous mediastinal lymph nodes present, borderline enlarged. For example, a superior right paratracheal node measures 10 mm in short axis (series 8, image 27). A right inferior paratracheal lymph node measures 1.2 cm in short axis (series 8, image 40). A right hilar lymph node measures 1.3 cm in short axis (series 8, image 54). A subcarinal lymph node measures 1.1 cm in short axis. These findings are nonspecific and could be reactive although neoplastic etiologies are not excluded. The esophagus is normal in appearance. AXILLA/CHEST WALL: No masses or abnormal lymph nodes. IMAGED UPPER ABDOMEN: There is a 3.1 cm cyst arising from the superior left kidney. There is mild atrophy of the pancreas. OSSEOUS STRUCTURES: There are no acute fractures identified. Severe degenerative arthritis bilateral shoulder joints. Degenerative arthritis in both sternoclavicular joints. Mild to moderate spinal degenerative changes. CT/CT angio chest PE protocol IMPRESSION: 1. No evidence of pulmonary embolus. 2. No evidence of acute aortic syndrome. There is aneurysmal dilatation of the ascending aorta up to 4.4 cm. Calcification of the aortic valve leaflets suggesting stenosis and/or bicuspid valve. 3. Mild to moderate centrilobular emphysema without definite active lung disease. Mild mosaic attenuation is likely air trapping. 4. Mild diffuse small airway thickening, in keeping with bronchitis of unknown chronicity. 5. Mild contrast reflux into the hepatic IVC suggesting increased right heart pressures. 6. Mildly enlarged mediastinal and right hilar lymph nodes, felt to most likely be reactive in etiology. 7. 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 8. No definite rib fractures. 9. Additional findings as discussed in the body of the report. Electronically signed by: Jose Johnson MD 02/22/2025 12:09 PM EDT
--- OUTSIDE RECORDS SUMMARY | 2025-02-22 08:12 | XMS_ITS | Patient Health Record ---
Author Organization [facility] Bolden Address [address] [place] [address] Care Team Providers Care Photo Mask Processor Name Role Phone Inessa MCINTOSH, [place] Primary Care Provider Emile Rios Unavailable [phone] Reason For Referral No Information Medications Medication SIG (Take, Route, Frequency, Duration) Notes Start Date End Date Status Crestor 20 MG 1 tablet Orally Once a day Active Extra-Depth Diabetic Shoes with 3 Pair Custom heat-molded multi-density innersoles . for 1 year . Dx:please accomodate for painful right 2nd and 3rd mtpj's right foot with met pads; Duration: . 10/06/2014 Active Metformin & Diet Manage Prod 500 MG Orally Active traMADol HCl Active flovent HFA Active Diovan 160 MG 1 tablet Orally Once a day Active Combivent Active Problems Problem Type SNOMED Code ICD Code Onset Dates Problem Status W/U Status Risk Notes Problem Onychomycosis (421088514) Onychomycosis (110.1) Active confirmed Problem Pain in limb (00250415) Pain in Limb (729.5) Active confirmed Problem Disorder of joint of ankle and/or foot (789689594) Arthritis - Degenerative (719.97) Active confirmed Problem Hammer toe (635269451) Hammer toe (735.4) Active confirmed Problem Pain in limb (93936706) Pain in Limb (729.5) Active confirmed Problem Neurologic disorder associated with type II diabetes mellitus (437433444) 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 Problem Keratoma (49854232) 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.1) Active confirmed Plan Of Treatment Pending Test Test Name Order Date X ray : Foot, right 2V 10/06/2014 [id number] NAIL, 6 OR MORE 10/06/2014 [id number] SKIN LESIONS, OVER 4 10/06/19 15 Insurance Providers Payer Name Payer Address Payer Phone Subscriber Number Group Number Insured Name Patient Relationship to Insured Coverage Start Date Coverage End Date [facility] [address] [facility] [place] [id number] Scottie Beth Self - patient is the insured Medical (General) History Medical History History ICD Code Arthritis asthma chronic sinusitis
--- NOTE | 2025-02-22 08:22 | PC.NURSE ---
Patient presents to ED c/o feeling unwell for the past week, inability to sleep. Dizzy spells upon rising with multiple falls. Denies headstrike, - LOC, patient hit right ribs, denies pain, -SOB. Patient takes ASA 81mg. Reports having covid 1 week ago, productive cough noted. O2 99% RA. and daughter in law at bedside. Blood collected/sent. Urine collected sent. 20G in left forearm. VSS and up to date. Provider in to see patient. Plan of care on going
[2025-02-22 08:26] LABS: Appearance Urine Clear; Glucose Urine UA >=1000 mg/dL (Negative); Hematocrit 33.9 % (42.0-52.0); Hemoglobin 11.8 g/dl (14.0-18.0); Imm Gran Abs Auto 0.33 X10*3/uL (0.00-0.03); Imm Gran Pct Auto 4.3 % (0.0-0.4); Lymphocytes Absolute Auto 4.6 X10*3/uL (1.2-4.9); MANUAL DIFF FLAG SCAN; Mean Corpuscular HGB Conc 34.8 g/dl (31.0-36.0); Mean Corpuscular Hemoglobin 28.5 pg (27.0-33.0); Mean Corpuscular Volume 81.9 fL (80.0-98.0); NRBC Abs Auto 0.000 X10*3/uL (0.0-0.012); NRBC Pct Auto 0.0 /100WBC (0.0-0.2); PH 5.5 (5.0-9.0); Platelet Count 209 X10*3/uL (160-400); Red Blood Count 4.14 X10*6/uL (4.60-5.80); SCAN SMEAR FLAG 1; Specific Gravity - Urine 1.020 (1.005-1.025); UMIC TRIGGER UACC YES; White Blood Count 7.7 X10*3/uL (4.8-10.8)
[2025-02-22 08:40] LABS: Alanine Aminotransferase 19 U/L (0-40); Albumin Level 4.1 g/dL (3.5-5.0); Alkaline Phosphatase 112 U/L (39-117); Anion Gap 17 (12-20); Aspartate Amino Transferase 26 U/L (5-37); Blood Urea Nitrogen 20 mg/dL (9-16); Calcium 9.1 mg/dL (8.4-10.2); Carbon Dioxide 19 mmol/L (22-29); Chloride 106 mmol/L (96-108); Creatinine Clr Calc Pharmacy 53.7; Estimated Glomerular Filt Rate > 60; Magnesium 2.0 mg/dL (1.6-2.6); Potassium 4.5 mmol/L (3.3-5.1); Sodium 137 mmol/L (135-145); Total Protein 7.3 g/dL (6.5-8.0)
[2025-02-22 08:47] LABS: Troponin-I High Sensitivity 20.2 ng/L (<3.5-35.0)
--- NOTE | 2025-02-22 09:03 | ED.DIZZY ---
HPI - Dizziness General Chief Complaint: Dizziness Stated Complaint: Shakiness, weakness Time Seen by Provider: 02/22/25 08:57 Source: patient Mode of arrival: ambulatory Limitations: no limitations History of Present Illness ED Provider: Ruben Medrano PA-C HPI Narrative: 85 yo male with history of DM2, PMR, with recent COVID infection dx 02/15, hx orthostatic hypotension who presents to the ER for evaluation of dizziness and weakness for the last 1 week. He fell twice on his bottom today at home. He missed the chair and fell onto his tailbone. No head strike or LOC. Not on blood thinners. 2nd fall was into a box with his right chest and then caught himself. He reports dizziness when he stands up too quickly and this is chronic for him but worse than ususal. He has been coughing a lot with his COVID infection and has been SOB. no chest pain aside from his right lower ribs where he hit the box when he fell. No abdominal pain and he has been eating and drinking well. Patient states he has not slept well in the last 3 nights. He has spasms in all 4 extremities when he lays down and tries to sleep. His primary care doctor gave him Neurontin but it does not help. He is asking for something to take away the restlessness in his extremities so he can sleep. MD elicited complaint: dizziness and other (fall x2) Onset (ago): day(s) Timing: intermittent Severity: similar to previous episodes Description: lightheadedness Context: recent illness History of similar symptoms: Yes Exacerbating factors: change in body position Relieving factors: remaining still, rest and lying down Associated symptoms: malaise, shortness of breath, weakness and nasal congestion Related Data Home Medications ?Medication ?Instructions ?Recorded ?Confirmed atorvastatin 40 mg tablet 40 mg PO DAILY 07/02/24 02/03/25 empagliflozin 25 mg tablet 25 mg PO DAILY 07/02/24 02/03/25 (Jardiance) metformin 500 mg tablet 1,000 mg PO BID 07/02/24 02/03/25 tramadol 50 mg tablet 50 - 100 mg PO QID PRN 07/02/24 02/03/25 valsartan 160 mg tablet 160 mg PO DAILY 07/02/24 02/03/25 Previous Rx's ?Medication ?Instructions ?Recorded doxycycline hyclate 100 mg tablet 100 mg PO DAILY #14 tabs 09/10/24 prednisone 5 mg tablet 5 mg PO DAILY 90 days #90 tabs 12/25/24 Allergies Allergy/AdvReac Type Severity Reaction Status Date / Time No Known Allergies Allergy Verified 02/22/25 07:58 Review of Systems Review of Systems: Yes all other systems are reviewed and are negative [facility] Past Medical History Medical History PMR (polymyalgia rheumatica) 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 Pleural plaque Pneumonia Echocardiogram abnormal Umbilical hernia 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 Polyp of nasal cavity Osteoarthritis of both knees Osteoarthritis of both hands Onychomycosis Undescended left testicle Left ventricular hypertrophy Low vitamin B12 level Insomnia Hard of hearing Glenohumeral arthritis Glaucoma Fatty liver Hyperlipidemia Disorder of rotator cuff of both shoulders CKD stage G2/A2, GFR 60-89 and albumin creatinine ratio 30-299 mg/g CKD (chronic kidney disease) Chronic rhinitis Chronic back pain Chronic anemia Carpal tunnel syndrome Benign essential HTN Asthma Aortic valve stenosis Anxiety Family History Family History Father History of arthritis Social History Social History Household Members: Spouse Housing: House Alcohol intake: former Patient Tobacco Use Status: Former Tobacco user Years Smoked: 30 Smoked in Last 30 Days: No Use of substances other than those prescribed or required for medical reasons: No Advance Directives: No Advance Directives Information Provided: Yes Do you have a plan to hurt others: No Plan Physical Exam Vital Signs: Vital Signs: Last Vital Signs Temp 98.1 F 02/22/25 07:59 Pulse 85 02/22/25 10:41 Resp 18 02/22/25 10:41 BP 99/68 02/22/25 10:41 Pulse Ox 97 02/22/25 10:41 O2 Del Method Room Air 02/22/25 10:41 BMI result Body Mass Index 23.4 Appearance: Alert elderly male sitting up in bed. Oriented X3. No acute distress. Head: normocephalic, atraumatic. Eyes: Pupils equal, round and reactive to light. No nystagmus ENT: Pharynx normal. No tonsillar swelling or exudate. Neck: Normal inspection. Neck supple. No midline tenderness CVS: Normal heart rate and rhythm. Pulses normal. Respiratory: No respiratory distress. Breath sounds normal. Right lateral rib tenderness, no crepitus. no ecchymosis. Abdomen: Soft and nontender. +BS x4 Skin: Skin warm and dry. Normal skin color. Normal skin turgor. No rashes. Extremities: No lower extremity edema. No joint swelling. Neuro/psych: Oriented X 3. No motor deficit. No sensory deficit. CN II-XII intact. Normal speech and cognition. Course Reevaluation(s) Reevaluation #1: Physician observation started at 12:22. Patient is pending physical therapy evaluation and case management consultation for possible short-term rehab versus services at home. Vital signs are stable. Patient is awake and alert, nonfocal on examination. and patient are agreeable to physical therapy at this time. Physician observation discontinued at 13:59. Patient no longer wants to wait in the emergency room for physical therapy evaluation. They would like to go home. He has been ambulating around in the ED on assisted and has a steady gait. His would like to take him home. They will call the primary care doctor today to try to set up an appointment as soon as possible. Strict return precautions were discussed. Stable for discharge home Medications Administered Discontinued Medications Generic Name Dose Route Start Last Admin Trade Name Freq PRN Reason Stop Dose Admin Iohexol 100 ml 02/22/25 11:17 02/22/25 11:19 Iohexol 350 Mg/Ml 100 Ml Infus..Btl IV 02/22/25 11:18 65 ml ONCE ONE Administration Medical Decision Making Medical Decision Making [facility] Narrative: 85-year-old male with a history of PMR, diabetes, neuropathy who presents to the ER for evaluation of generalized weakness, dizziness with standing, cough, shortness of breath for the last week in the setting of COVID infection. Patient has a history of orthostatic hypotension per review of records and was seen for dizziness and weakness in August. On examination he has no focal deficits, no symptoms at rest. Orthostatic vital signs are negative today. His lab workup is significant for a stable, mild normocytic anemia, hyperglycemia 246 without anion gap. Renal function is normal. Troponin is elevated at 20 which is decreased from prior. He has no current chest pain or shortness of Breath. He does have right rib tenderness from a fall. No head or neck injury. He is on anticoagulation. CT scan of his chest did not show any evidence of PE, he has some bronchitis changes, no rib fractures. Recommended PT evaluation however patient is feeling better, ambulating with a steady gait and wants to go home. denies current dizziness or weakness. agreeable to take him home and will call PCP. stable for d/c home Differential Diagnosis Differential Diagnoses: The differential diagnosis associated with the presentation includes PE, ACS, orthostatic hypotension, dehydration, COVID, CVA, restless legs syndrome Admission/Observation Consideration of admission/observation: Escalation of care including admission/observation considered Lab Data MDM Lab Attestation statement: I reviewed the patient's lab results. as above 02/22/25 08:15 02/22/25 08:15 Labs: Lab Results 02/22/25 02/22/25 Range/Units 08:15 08:17 WBC 7.7 (4.8-10.8) X10*3/uL RBC 4.14 L (4.60-5.80) X10*6/uL Hgb 11.8 L (14.0-18.0) g/dl Hct 33.9 L (42.0-52.0) % MCV 81.9 (80.0-98.0) fL MCH 28.5 (27.0-33.0) pg MCHC 34.8 (31.0-36.0) g/dl RDW 18.3 H (11.0-16.0) % Plt Count 209 (160-400) X10*3/uL MPV 9.1 L (9.4-12.4) fL Immature Gran % (Auto) 4.3 H (0.0-0.4) % Neut % (Auto) 26.2 L (45-73) % Lymph % (Auto) 60.7 H (20-40) % [place] % (Auto) 7.2 (2-11) % Eos % (Auto) 1.3 (0-4) % Baso % (Auto) 0.3 (0-2) % Lymph # (Auto) 4.6 (1.2-4.9) X10*3/uL [place] # (Auto) 0.6 (0.1-1.2) X10*3/uL Eos # (Auto) 0.1 (0.0-0.4) X10*3/uL Baso # (Auto) 0.0 (0.0-0.2) X10*3/uL Abs Immat Gran (auto) 0.33 H (0.00-0.03) X10*3/uL Absolute Neuts (auto) 2.0 (2.0-8.3) x10*3/uL Absolute Nucleated RBC 0.000 (0.0-0.012) X10*3/uL Nucleated RBC % (auto) 0.0 (0.0-0.2) /100WBC Smear Tech's Comments VERIFIED Sodium 137 (135-145) mmol/L Potassium 4.5 (3.3-5.1) mmol/L Chloride 106 (96-108) mmol/L Carbon Dioxide 19 L (22-29) mmol/L Anion Gap 17 (12-20) BUN 20 H (9-16) mg/dL Creatinine 1.05 (0.5-1.4) mg/dL Estim Creat Clear Calc 53.7 Estimated GFR > 60 Random Glucose 246 H (60-115) mg/dL Calcium 9.1 (8.4-10.2) mg/dL Magnesium 2.0 (1.6-2.6) mg/dL Total Bilirubin 0.6 (0.0-1.0) mg/dL AST 26 (5-37) U/L ALT 19 (0-40) U/L Alkaline Phosphatase 112 (39-117) U/L Troponin I High Sens 20.2 (<3.5-35.0) ng/L Total Protein 7.3 (6.5-8.0) g/dL Albumin 4.1 (3.5-5.0) g/dL Urine Color Yellow Urine Appearance Clear Urine pH 5.5 (5.0-9.0) Ur Specific [place] 1.020 (1.005-1.025) Urine Protein Trace (Neg-Trace) mg/dL Urine Glucose (UA) >=1000 H (Negative) mg/dL Urine Ketones Negative (Negative) mg/dL Urine Blood Negative (Negative) Urine Nitrite Negative (Negative) Ur Leukocyte Esterase Negative (Negative) Urine RBC 0-2 (0-2) /HPF Urine WBC 0-5 (0-5) /HPF Ur Squamous Epith Cells 0-2 (0-2) /HPF Urine Bacteria None Seen (None Seen) Hyaline Casts 0-2 (0-2) /LPF Influenza Type A (PCR) NEGATIVE (Negative) Influenza Type B (PCR) NEGATIVE (Negative) RSV RNA Qual (PCR) NEGATIVE (Negative) SARS-CoV-2 RNA (RT-PCR) POSITIVE A (Negative) Independent Interpretation I performed an independent interpretation of an: EKG and CT Scan Interpretation: CTA without PE EKG with sinus rhythm with first-degree AV block, PVCs present, ventricular rate 82 beats per minute, QTC is normal, QRS is normal, Radiology Impression Discussion of test interpretation with radiology: I have reviewed the radiologist's reading. Independent Historian Clinical information obtained from an independent historian. History obtained from or confirmed by: Spouse External Record Review External record reviewed: Outpatient record, Prior outpatient labs and Prior outpatient radiology Tests considered The following testing was considered but not selected: CT head and cervical spine considered Prescription Management I considered prescription management with: Pain Medication, Antibiotic and Other (requip) Chronic Conditions Patient?s care impacted by: Other (orthostatic hypotension hx, hx dizziness) Critical Care Time Critical Care Time Critical Care Time: No Discharge Plan Discharge Clinical Impression: Recurrent falls, COVID-19 Patient Disposition: Home, Self-Care Instructions: Fall Prevention for Older Adults (ED), COVID-19 (Coronavirus Disease 2019) (ED) Additional Instructions: It was recommended that he stay in the emergency department to get evaluated by Physical therapy to see if you need physical therapy at home or acute rehab however you wanted to go home. Your workup today was largely unremarkable, no evidence of broken ribs, pneumonia or blood clot. UR likely still affected by COVID. It can take time to fully recover. Rest and drink plenty of fluids at home. Make sure you are giving herself time between changing body positions( going from sitting to standing, lying to sitting) make sure you give herself time to adjust. Recommend trial of magnesium supplementation at night, start with 400 mg, and can increased 800 mg. This should help with muscle spasticity and sleep. Follow-up with your primary care doctor as soon as possible If you develop new or worsening symptoms call 911 or come back to the ER for further evaluation. Prescriptions: No Action doxycycline hyclate 100 mg tablet 100 mg PO DAILY Qty: 14 0RF prednisone 5 mg tablet 5 mg PO DAILY 90 Days Qty: 90 1RF valsartan 160 mg tablet 160 mg PO DAILY tramadol 50 mg tablet 50 - 100 mg PO QID PRN Jardiance 25 mg tablet 25 mg PO DAILY atorvastatin 40 mg tablet 40 mg PO DAILY metformin 500 mg tablet 1,000 mg PO BID Referrals: Penelope Fletcher NP [Primary Care Provider, Internal Medicine] Print Language: Maltese
[2025-02-22 09:06] LABS: Resp Syncy Virus RNA Qual PCR NEGATIVE (Negative); SARS COV2 PCR INHOUSE POSITIVE (Negative)
--- NOTE | 2025-02-22 10:44 | PC.NURSE ---
Patient positive for covid. Precautions in place. BP soft 99/68. Patient denies pain or dizziness. Family no longer at bedside at this time. Patient awaiting CT of chest
[2025-02-22] MEDS: iohexoL 350 MG/ML 100 ML INFUS..BTL IV (11:19)
--- NOTE | 2025-02-22 14:05 | MHC.CM.ED ---
Received case management consult from Osiris HERNANDEZ. Patient came to the ER due to dizziness and weakness. Was originally positive for Covid on 02/15. Covid swab is still negative. Patient decided not to wait for PT eval or CM consult. Patient d/c'd before being seen by CM.
== END 2025-02-22 14:09 | disposition home or self-care (01) ==
PROVIDERS: Emergency Provider Emergency Medicine; PCP Nurse Practitioner Family
DX: U07.1 COVID-19 (principal); R42 Dizziness and giddiness; E11.9 Type 2 diabetes mellitus without complications; R06.02 Shortness of breath; R09.81 Nasal congestion; Z79.899 Other long term (current) drug therapy; Z87.891 Personal history of nicotine dependence; Z91.81 History of falling
CPT/HCPCS: 36415; 71275; 80053; 81001; 83735; 84484; 85025; 87637; 93005; 99285; Q9967

== ENCOUNTER → 2025-02-22 08:59 | Outpatient (BNV) | payer MEDICARE, SELFPAY | PROVIDERS: Emergency Provider Emergency Medicine; PCP Nurse Practitioner Family; Visit Provider Internal Medicine Cardiovascular Disease | DX: I44.0 Atrioventricular block, first degree (principal); I49.3 Ventricular premature depolarization; I45.10 Unspecified right bundle-branch block | CPT/HCPCS: 93010 ==

== ENCOUNTER → 2025-02-22 10:04 | Outpatient (BNV) | payer MEDICARE, SELFPAY | PROVIDERS: Emergency Provider Emergency Medicine; PCP Nurse Practitioner Family; Visit Provider Radiology Diagnostic Radiology | DX: J43.2 Centrilobular emphysema (principal); J92.0 Pleural plaque with presence of asbestos | CPT/HCPCS: 71275 ==

== ENCOUNTER 2025-04-22 07:48 | Outpatient (AMB) | payer MEDICARE, SELFPAY ==
--- OUTSIDE RECORDS SUMMARY | 2025-04-22 07:52 | XMS_ITS | Patient Health Record ---
Author Organization [facility] Bolden Address [address] [place] [address] Care Team Providers Care Admissions Advisor Name Role Phone Inessa MCINTOSH, [place] Primary Care Provider Emile Rios Unavailable [phone] Reason For Referral No Information Medications Medication [...] Status W/U Status Risk Notes Problem Onychomycosis (685638375) Onychomycosis (110.1) Active confirmed Problem Pain in limb (13906717) Pain in Limb (729.5) Active confirmed Problem Disorder of joint of ankle and/or foot (362671905) Arthritis - Degenerative (719.97) Active confirmed Problem Hammer toe (839519969) Hammer toe (735.4) Active confirmed Problem Pain in limb (11425268) Pain in Limb (729.5) Active confirmed Problem Neurologic disorder associated with type II diabetes mellitus (245608771) 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 Problem Keratoma (85447671) 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.1) Active confirmed Plan Of Treatment Pending Test Test Name Order Date X ray : Foot, right 2V 10/06/2014 [id number] NAIL, 6 OR MORE 10/06/2014 [id number] SKIN LESIONS, OVER 4 10/06/19 15 Insurance Providers Payer Name Payer Address Payer Phone Subscriber Number Group Number Insured Name Patient Relationship to Insured Coverage Start Date Coverage End Date [employer] [address] [facility] [place] [phone] [id number] Scottie Beth Self - patient is the insured Medical (General) History Medical History History ICD Code Arthritis asthma chronic sinusitis
--- NOTE | 2025-04-22 08:13 | A.OFFVIS_ITS ---
Vital Signs 04/22/25 08:20 Height 5 ft 11 in Weight 186 lb 8.177 oz BMI 26.0 BP 112/70 Blood Pressure Location Lt brachial Position Sitting Pulse 52 Pulse Source Pulse Oximeter Pulse Oximetry (%) 98 Oxygen Delivery Method Room Air Intake Visit Reasons: follow up Intake Note: Patient presents for Osteoarthritis in both knees follow up. Allergies No Known Allergies Allergy (Verified 04/22/25 08:19) HPI Comments Details: Patient is an 85-year-old male with hypertension, diabetes, hyperlipidemia, PMR and polyarticular osteoarthritis here today for follow up Interval History: Patient last seen 02/03/25 with co - On Prednisone 5mg - Urgent knee visit for bilateral knee pain - Received durolane 12/25/24 - Bilateral steroid injection given Today - On Prednisone 10mg - Complaining of bilateral knee pain and bilateral shoulder pain - The steroid injection helped but not for a long time Rheumatologic History: Patient establish care 06/2024. Current working diagnosis of PMR based on elevated ESR/CRP, weight loss, fatigue and shoulder stiffness. 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 Pleural plaque Pneumonia Echocardiogram abnormal Umbilical hernia 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 Polyp of nasal cavity Osteoarthritis of both knees Osteoarthritis of both hands Onychomycosis Undescended left testicle Left ventricular hypertrophy Low vitamin B12 level Insomnia Hard of hearing Glenohumeral arthritis Glaucoma Fatty liver Hyperlipidemia Disorder of rotator cuff of both shoulders CKD stage G2/A2, GFR 60-89 and albumin creatinine ratio 30-299 mg/g CKD (chronic kidney disease) Chronic rhinitis Chronic back pain Chronic anemia Carpal tunnel syndrome Benign essential HTN Asthma Aortic valve stenosis Anxiety Family History Father History of arthritis Social History Household Members: Spouse Housing: House Alcohol intake: former Patient Tobacco Use Status: Former Tobacco user Years Smoked: 30 Review of Systems Const Details: Review of Systems Constitutional: Denies fever, chills, weight loss ENT: Denies vision changes, eye pain or eye redness, dental caries, dry mouth GI: Denies nausea, vomiting, diarrhea, abdominal pain, change in BM Pulm: Denies SOB, MELENDEZ, hemoptysis, wheezing Cards: Denies chest pain, palpitations Skin: Denies Raynaud's, rash, nail changes, photosensitivity, [employer]: Denies headaches, weakness, paresthesias, recurrent falls MSK: as per HPI All other systems reviewed and are unremarkable except noted above Physical Exam Exam Exam: Vital signs reviewed Physical Examination CONSTITUITIONAL Patient alert and cooperative. Well appearing and in no apparent painful distress MSK Hands * Right Hand: Not able to make a fist. No swelling or tenderness to palpation of the MCPs, PIPs or DIPs. * Left Hand: Not able to make a fist. No swelling or tenderness to palpation of the MCPs, PIPs or DIPs. * Diabetic cheiroarthropathy - positive prayer hand sign * Prominent [place]berden nodes throughout bilateral hands on the DIPs. Wrists * Right Wrist: Full decreased to flexion and extension. No swelling or TTP * Left Wrist: Full decreased to flexion and extension. No swelling or TTP Elbows * Right Elbow: Full ROM. No swelling or TTP. No TTP of the medial epicondyle. No TTP of the lateral epicondyle * Left Elbow: Full ROM. No swelling or TTP. No TTP of the medial epicondyle. No TTP of the lateral epicondyle Shoulders * Right shoulder: Decreased ROM. No swelling noted. TTP of the AC joint, subacromial bursa, and the posterior shoulder * Left shoulder: Decreased ROM. No swelling noted. TTP of the AC joint, subacromial bursa, and the posterior shoulder Knees * Right knee: Decreased ROM. No swelling noted. TTP of the knee joint line. No TTP of pes anserine bursa * Left knee: Decreased ROM. No swelling noted. TTP of the knee joint line. No TTP of pes anserine bursa. Ankles * Right ankle: Good ankle dorsiflexion and plantar flexion. No swelling. No TTP of the ankle joint * Left ankle: Good ankle dorsiflexion and plantar flexion. No swelling. No TTP of the ankle joint Feet * Right foot: Negative squeeze test * Left foot: Negative squeeze test Tender points? * No tenderness to palpation of the bilateral trapezius, supraspinatus, anterior costochondral junctions, bilateral suboccipital muscle insertions SKIN No rashes Vital Signs: Last Vital Signs Pulse 52 04/22/25 08:20 BP 112/70 04/22/25 08:20 Pulse Ox 98 04/22/25 08:20 Oxygen Delivery Method Room Air 04/22/25 08:20 BMI result Body Mass Index 26.0 Results Reviewed Results Reviewed: Laboratory Tests 12/25/24 04/22/25 09:45 11:02 WBC 7.1 RBC 4.39 L Hgb 12.6 L Hct 38.3 L Plt Count 263 D ESR 34 H 23 H Sodium 137 Potassium 5.1 Chloride 101 Carbon Dioxide 22 BUN 23 H Creatinine 1.34 Estimated GFR 51 AST 17 ALT 14 C-Reactive Protein 1.29 H 0.27 Laboratory Tests 07/03/24 09:17 Rheumatoid Factor < 13.0 Cycl Citrul Peptide IgG <16 XR Bilateral shoulders 04/2025 FINDINGS (Left): There is elevation of the humeral head and narrowing of the subacromial space. Small marginal sites are evident involving glenoid and humeral head. The AC joint is intact. It is narrowed with marginal osteophytes. There is a subacromial spur. Multifocal calcified pleural plaques are noted over the left chest wall. IMPRESSION: There are mild to moderate degenerative changes involving the left glenohumeral joint. Mild AC joint arthropathy is noted. Subacromial space narrowing and subacromial spur. There is elevation of the left humeral head raising question of underlying rotator cuff tear. Calcified pleural plaques, left chest wall FINDINGS (Right): There is severe narrowing of the glenohumeral joint. There is a moderate medial osteophyte. Glenoid demonstrates marginal osteophytes and central to lower subchondral degenerative cystic changes. The AC joint is intact and unremarkable. Calcific pleural plaque projects over the mid to upper right lung. IMPRESSION: Severe degenerative changes are present in the right shoulder joint. Right-sided calcified pleural plaque. Assessment & Plan Assessment & Plan (1) PMR (polymyalgia rheumatica): Comment: Ddx 07/2024 Prednisone 07/2024 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 - did not tolerate Kevzara 11/2024 - not not start Code(s): M35.3 - Polymyalgia rheumatica Category: Medical Plan: #PMR Patient is an 85-year-old male with presumed PMR here today for follow up. His inflammatory markers have improved on steroids however he still has persistent shoulder pain. He is currently on 10 mg of steroids and his ESR has trended down and his CRP is normal. We will need to check x-rays of his shoulder to see if there is any mechanical issues related to his shoulder pain at this time Plan - Decrease prednisone to 9mg - XRs Bilateral shoulders - RTC 3 months - Labs before visit: CBC, CMP, ESR, CRP (2) Polyarticular osteoarthritis: Code(s): M15.9 - Polyosteoarthritis, unspecified Category: Medical Plan: #Polyarticular OA Patient with polyarticular osteoarthritis especially involving his knees. 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 Plan: #Long-term Use of Steroids Discussed with patient the risks and benefits of steroid for managing the rheumatic condition Benefits include: - Reduced pain, improved mobility, increased participation in activities, and decreased progression of disease Risks include: - GI upset, potential ultrasound worsening or formation (especially in patients > 65 years old), elevated blood pressure/worsening hypertension, elevated blood sugar/worsening diabetes control, worsening of bone density, elevated lipids/worsening triglycerides, cataract formation, weight gain Recommended using proton pump inhibitors (PPIs) for the duration of steroid use to reduce the risk of gastric ulcers and vitamin-D daily to reduce the risk of osteoporosis Labs checked: A1c, T spot, hepatitis-B and C serologies Pneumocystis jiroveci prophylaxis: Patient with risk factors including steroids greater than 50 mg for more than 30 days, age greater than 60 years, and lung involvement from underlying rheumatic disease requires prophylaxis and will be given so Plan I spent 30 minutes reviewing the record and labs, taking a history, examining the patient, discussing the treatment plan, ordering diagnostic work up and documenting in the medical record Orders: Orders XR shoulder RT min 2V Today M25.511 - Pain in right shoulder, M25.512 - Pain in left shoulder XR shoulder LT min 2V Today M25.511 - Pain in right shoulder, M25.512 - Pain in left shoulder Comprehensive Met. Panel Today M25.511 - Pain in right shoulder, M25.512 - Pain in left shoulder, Z79.899 - Other prison (current) drug therapy Erythrocyte Sedimentation Rate Today M25.511 - Pain in right shoulder, M25.512 - Pain in left shoulder, Z79.899 - Other salvage determiner (current) drug therapy Complete Blood Count Auto Diff Today M25.511 - Pain in right shoulder, M25.512 - Pain in left shoulder, Z79.899 - Other salvage determiner (current) drug therapy C Reactive Protein Today M25.511 - Pain in right shoulder, M25.512 - Pain in left shoulder, Z79.899 - Other salvage determiner (current) drug therapy Coding Level of Care Code Est Pt Level 4 (07468) Complex EM visit Add On G2211 Diagnoses PMR (polymyalgia rheumatica) M35.3 Polyarticular osteoarthritis M15.9 USP current use of systemic steroids Z79.52
[2025-04-22 08:20] VITALS: BP 112/70; PULSE 52; O2SAT 98; BMI 26.0
== END 2025-04-22 09:08 | disposition home or self-care (01) ==
LOC: HO.RHES 07:49
PROVIDERS: PCP Nurse Practitioner Family; Visit Provider Student in an Organized Health Care Education/Training Program
DX: M35.3 Polymyalgia rheumatica (principal); M15.9 Polyosteoarthritis, unspecified; Z79.52 Long term (current) use of systemic steroids
CPT/HCPCS: 99214; G2211

== ENCOUNTER 2025-04-22 07:48 | Outpatient (REF) | payer MEDICARE, SELFPAY ==
--- NOTE | ~2025-04-22 | XR_ITS ---
EXAMINATION: XR SHOULDER, LEFT CLINICAL INFORMATION: M25.511 - Pain in right shoulder COMPARISON: None available. TECHNIQUE: AP external rotation, Grashey, scapular Y, and axillary views of the left shoulder. FINDINGS: There is elevation of the humeral head and narrowing of the subacromial space. Small marginal sites are evident involving glenoid and humeral head. The AC joint is intact. It is narrowed with marginal osteophytes. There is a subacromial spur. Multifocal calcified pleural plaques are noted over the left chest wall. XR/XR shoulder LT min 2V IMPRESSION: There are mild to moderate degenerative changes involving the left glenohumeral joint. Mild AC joint arthropathy is noted. Subacromial space narrowing and subacromial spur. There is elevation of the left humeral head raising question of underlying rotator cuff tear. Calcified pleural plaques, left chest wall Electronically signed by: Ivan Mcconnell MD 04/22/2025 11:49 AM EDT
--- NOTE | ~2025-04-22 | XR_ITS ---
EXAMINATION: XR SHOULDER, RIGHT CLINICAL INFORMATION: M25.511 - Pain in right shoulder COMPARISON: None available. TECHNIQUE: AP external rotation, Grashey, scapular Y, and axillary views of the right shoulder. FINDINGS: There is severe narrowing of the glenohumeral joint. There is a moderate medial osteophyte. Glenoid demonstrates marginal osteophytes and central to lower subchondral degenerative cystic changes. The AC joint is intact and unremarkable. Calcific pleural plaque projects over the mid to upper right lung. XR/XR shoulder RT min 2V IMPRESSION: Severe degenerative changes are present in the right shoulder joint. Right-sided calcified pleural plaque. Electronically signed by: Ivan Mcconnell MD 04/22/2025 11:46 AM EDT
[2025-04-22 11:04] LABS: MANUAL DIFF FLAG NO
[2025-04-22 11:42] LABS: Hematocrit 38.3 % (42.0-52.0); Hemoglobin 12.6 g/dl (14.0-18.0); Imm Gran Abs Auto 0.23 X10*3/uL (0.00-0.03); Imm Gran Pct Auto 3.3 % (0.0-0.4); Lymphocytes Absolute Auto 2.6 X10*3/uL (1.2-4.9); Mean Corpuscular HGB Conc 32.9 g/dl (31.0-36.0); Mean Corpuscular Hemoglobin 28.7 pg (27.0-33.0); Mean Corpuscular Volume 87.2 fL (80.0-98.0); NRBC Abs Auto 0.000 X10*3/uL (0.0-0.012); NRBC Pct Auto 0.0 /100WBC (0.0-0.2); Platelet Count 263 X10*3/uL (160-400); Red Blood Count 4.39 X10*6/uL (4.60-5.80); White Blood Count 7.1 X10*3/uL (4.8-10.8)
[2025-04-22 13:02] LABS: Alanine Aminotransferase 14 U/L (0-40); Albumin Level 4.4 g/dL (3.5-5.0); Alkaline Phosphatase 87 U/L (39-117); Anion Gap 19 (12-20); Aspartate Amino Transferase 17 U/L (5-37); Blood Urea Nitrogen 23 mg/dL (9-16); Calcium 9.0 mg/dL (8.4-10.2); Carbon Dioxide 22 mmol/L (22-29); Chloride 101 mmol/L (96-108); Estimated Glomerular Filt Rate 51; Potassium 5.1 mmol/L (3.3-5.1); Sodium 137 mmol/L (135-145); Total Protein 7.5 g/dL (6.5-8.0)
== END 2025-04-22 07:49 | disposition home or self-care (01) ==
LOC: HO.LAB 07:48
PROVIDERS: PCP Nurse Practitioner Family; Visit Provider Student in an Organized Health Care Education/Training Program
DX: M35.3 Polymyalgia rheumatica (principal); M15.9 Polyosteoarthritis, unspecified; Z79.52 Long term (current) use of systemic steroids; Z79.899 Other long term (current) drug therapy
CPT/HCPCS: 36415; 73030; 80053; 85025; 85652; 86140; 99212

== ENCOUNTER → 2025-04-22 11:06 | Outpatient (BNV) | payer MEDICARE, SELFPAY | PROVIDERS: PCP Nurse Practitioner Family; Visit Provider Radiology Diagnostic Radiology | DX: M19.011 Primary osteoarthritis, right shoulder (principal); M19.012 Primary osteoarthritis, left shoulder | CPT/HCPCS: 73030 ==

== ENCOUNTER 2025-04-23 08:12 | Outpatient (AMB) | payer MEDICARE, SELFPAY ==
--- NOTE | 2025-04-23 08:21 | A.OFFVIS_ITS ---
Vital Signs 04/23/25 08:27 Height 5 ft 10 in Weight 184 lb 1.376 oz BMI 26.4 BP 120/84 Blood Pressure Location Lt brachial Position Sitting Pulse 89 Pulse Source Pulse Oximeter Pulse Oximetry (%) 98 Oxygen Delivery Method Room Air Intake Visit Reasons: injection/ per md Intake Note: Patient presents for injection follow up. Allergies No Known Allergies Allergy (Verified 04/23/25 08:27) Medication List - Last Reconciled 04/23/25 by Augusta Johnson MD atorvastatin 40 mg PO DAILY doxycycline hyclate 100 mg PO DAILY empagliflozin (Jardiance) 25 mg PO DAILY metformin 1,000 mg PO BID prednisone 5 mg PO DAILY 90 days tramadol 50 - 100 mg PO QID PRN valsartan 160 mg PO DAILY HPI Comments Details: Patient is an 85-year-old male with hypertension, diabetes, hyperlipidemia, PMR and polyarticular osteoarthritis here today for Gel One injections Interval History: Patient last seen 04/22/25 with me - On prednisone 10mg daily - Complained of bilateral knee pain and bilateral shoulder pain - Steroid injection did not provide alot of relief - Sent to get labs and XRs Today - On prednisone 10mg daily - Here for knee injections Rheumatologic History: Patient establish care 06/2024. Current working diagnosis of PMR based on elevated ESR/CRP, weight loss, fatigue and shoulder stiffness. 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 Pleural plaque Pneumonia Echocardiogram abnormal Umbilical hernia 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 Polyp of nasal cavity Osteoarthritis of both knees Osteoarthritis of both hands Onychomycosis Undescended left testicle Left ventricular hypertrophy Low vitamin B12 level Insomnia Hard of hearing Glenohumeral arthritis Glaucoma Fatty liver Hyperlipidemia Disorder of rotator cuff of both shoulders CKD stage G2/A2, GFR 60-89 and albumin creatinine ratio 30-299 mg/g CKD (chronic kidney disease) Chronic rhinitis Chronic back pain Chronic anemia Carpal tunnel syndrome Benign essential HTN Asthma Aortic valve stenosis Anxiety Family History Father History of arthritis Social History Household Members: Spouse Housing: House Alcohol intake: former Patient Tobacco Use Status: Former Tobacco user Years Smoked: 30 Review of Systems Const Details: Review of Systems Constitutional: Denies fever, chills, weight loss ENT: Denies vision changes, eye pain or eye redness, dental caries, dry mouth GI: Denies nausea, vomiting, diarrhea, abdominal pain, change in BM Pulm: Denies SOB, MELENDEZ, hemoptysis, wheezing Cards: Denies chest pain, palpitations Skin: Denies Raynaud's, rash, nail changes, photosensitivity, FAGOT HEATER HELPER: Denies headaches, weakness, paresthesias, recurrent falls MSK: as per HPI All other systems reviewed and are unremarkable except noted above Physical Exam Exam Exam: Vital signs reviewed Physical Examination CONSTITUITIONAL Patient alert and cooperative. Well appearing and in no apparent painful distress MSK Hands * Right Hand: Not able to make a fist. No swelling or tenderness to palpation of the MCPs, PIPs or DIPs. * Left Hand: Not able to make a fist. No swelling or tenderness to palpation of the MCPs, PIPs or DIPs. * Diabetic cheiroarthropathy - positive prayer hand sign * Prominent Heberden nodes throughout bilateral hands on the DIPs. Wrists * Right Wrist: Full decreased to flexion and extension. No swelling or TTP * Left Wrist: Full decreased to flexion and extension. No swelling or TTP Elbows * Right Elbow: Full ROM. No swelling or TTP. No TTP of the medial epicondyle. No TTP of the lateral epicondyle * Left Elbow: Full ROM. No swelling or TTP. No TTP of the medial epicondyle. No TTP of the lateral epicondyle Shoulders * Right shoulder: Decreased ROM. No swelling noted. TTP of the AC joint, subacromial bursa, and the posterior shoulder * Left shoulder: Decreased ROM. No swelling noted. TTP of the AC joint, subacromial bursa, and the posterior shoulder Knees * Right knee: Decreased ROM. No swelling noted. TTP of the knee joint line. No TTP of pes anserine bursa * Left knee: Decreased ROM. No swelling noted. TTP of the knee joint line. No TTP of pes anserine bursa. Ankles * Right ankle: Good ankle dorsiflexion and plantar flexion. No swelling. No TTP of the ankle joint * Left ankle: Good ankle dorsiflexion and plantar flexion. No swelling. No TTP of the ankle joint Feet * Right foot: Negative squeeze test * Left foot: Negative squeeze test Tender points? * No tenderness to palpation of the bilateral trapezius, supraspinatus, anterior costochondral junctions, bilateral suboccipital muscle insertions SKIN No rashes Vital Signs: Last Vital Signs Pulse 89 04/23/25 08:27 BP 120/84 04/23/25 08:27 Pulse Ox 98 04/23/25 08:27 Oxygen Delivery Method Room Air 04/23/25 08:27 BMI result Body Mass Index 26.4 Office Procedures AMB Joint Injection/Aspiration Joint Injection/Aspiration Details: Procedure was explained to the patient and informed consent was obtained. ? Risks associated with the procedure were discussed with the patient including but not limited to bleeding, infection, drug reactions and reactions to the topical anesthetic. Patient made aware of signs to look out for infectious complications. The area of interest was identified and confirmed with patient. ?This was subsequently cleaned with chlorhexidine x 2. ? The area was then anesthetized using ethyl chloride spray. 3cc Gel One was injected without issue. ?Minimal to no bleeding. ?Patient tolerated procedure. Primary Site: right knee Prep: site was prepped using aseptic technique and ethochloride spray was applied Injected: in the joint and other (3cc Gel One) Procedure: The patient tolerated the procedure well Coding 74547 - Large joint Procedure code (CPT) selection complete AMB Joint Injection/Aspiration Joint Injection/Aspiration Details: Procedure was explained to the patient and informed consent was obtained. ? Risks associated with the procedure were discussed with the patient including but not limited to bleeding, infection, drug reactions and reactions to the topical anesthetic. Patient made aware of signs to look out for infectious complications. The area of interest was identified and confirmed with patient. ?This was subsequently cleaned with chlorhexidine x 2. ? The area was then anesthetized using ethyl chloride spray. 3cc Gel One was injected without issue. ?Minimal to no bleeding. ?Patient tolerated procedure. Primary Site: left knee Prep: site was prepped using aseptic technique and ethochloride spray was applied Injected: in the joint and other (3cc Gel One) Approach Used: anterior Procedure: The patient tolerated the procedure well Coding 69202 - Large joint Procedure code (CPT) selection complete Office Meds Gel-One 30 mg/3 mL intra-articular syringe Performing Provider: Augusta Johnson MD Performing Location: [facility] Administered by: Sheba Berrios RN on 04/23/25 11:15 Dose Route Admin Location Dispensed Lot Number Expiration Date [place] [employer] 30 mg intra-articular right knee 3 mL [id number] 11/08/26 97933-67507 [employer] Total Dispensed Waste 3 mL 0 % Gel-One 30 mg/3 mL intra-articular syringe Performing Provider: Augusta Johnson MD Performing Location: [facility] Administered by: Sheba Berrios RN on 04/23/25 11:15 Dose Route Admin Location Dispensed Lot Number Expiration Date [facility] [employer] 30 mg intra-articular left knee 3 mL [id number] 11/08/26 97081-76097 [employer] Total Dispensed Waste 3 mL 0 % Results Reviewed Results Reviewed: Laboratory Tests 12/25/24 04/22/25 09:45 11:02 WBC 7.1 RBC 4.39 L Hgb 12.6 L Hct 38.3 L Plt Count 263 D ESR 34 H 23 H Sodium 137 Potassium 5.1 Chloride 101 Carbon Dioxide 22 BUN 23 H Creatinine 1.34 Estimated GFR 51 AST 17 ALT 14 C-Reactive Protein 1.29 H 0.27 Laboratory Tests 07/03/24 09:17 Rheumatoid Factor < 13.0 Cycl Citrul Peptide IgG <16 XR Bilateral shoulders 04/2025 FINDINGS (Left): There is elevation of the humeral head and narrowing of the subacromial space. Small marginal sites are evident involving glenoid and humeral head. The AC joint is intact. It is narrowed with marginal osteophytes. There is a subacromial spur. Multifocal calcified pleural plaques are noted over the left chest wall. IMPRESSION: There are mild to moderate degenerative changes involving the left glenohumeral joint. Mild AC joint arthropathy is noted. Subacromial space narrowing and subacromial spur. There is elevation of the left humeral head raising question of underlying rotator cuff tear. Calcified pleural plaques, left chest wall FINDINGS (Right): There is severe narrowing of the glenohumeral joint. There is a moderate medial osteophyte. Glenoid demonstrates marginal osteophytes and central to lower subchondral degenerative cystic changes. The AC joint is intact and unremarkable. Calcific pleural plaque projects over the mid to upper right lung. IMPRESSION: Severe degenerative changes are present in the right shoulder joint. Right-sided calcified pleural plaque. Assessment & Plan Assessment & Plan (1) Osteoarthritis of both knees: Code(s): M17.0 - Bilateral primary osteoarthritis of knee Category: Medical Qualifiers: Osteoarthritis type: primary Qualified Code(s): M17.0 - Bilateral primary osteoarthritis of knee Plan: #OA bilateral knees S/p bilateral knee injections with gel one (2) Shoulder pain, bilateral: Code(s): M25.511 - Pain in right shoulder; M25.512 - Pain in left shoulder Qualifiers: Chronicity: chronic Qualified Code(s): M25.511 - Pain in right shoulder; M25.512 - Pain in left shoulder; G89.29 - Other chronic pain Plan: #Bilateral shoulder pain Patient with bilateral shoulder pain and bilateral reduced range of motion. X- rays reviewed and he likely has several underlying issues causing his shoulder pain. Rotator cuff disease/tears, osteoarthritis and presumed PMR. Given his inflammatory markers have trended down I think that we can try steroid injections in the subacromial bursa or in the posterior shoulder since previous injections in the AC joint did not help (3) PMR (polymyalgia rheumatica): Comment: Ddx 07/2024 Prednisone 07/2024 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 - did not tolerate Kevzara 11/2024 - not not start Code(s): M35.3 - Polymyalgia rheumatica Category: Medical Plan: #PMR His inflammatory markers have improved on steroids however he still has persistent shoulder pain. He is currently on 10 mg of steroids and his ESR has trended down and his CRP is normal. Plan - Decrease prednisone to 9mg for 30 days then 8mg for 30 days then 7mg for 30 days - RTC 3 months - Labs before visit: CBC, CMP, ESR, CRP (4) Polyarticular osteoarthritis: Code(s): M15.9 - Polyosteoarthritis, unspecified Category: Medical Plan: #Polyarticular OA Patient with polyarticular osteoarthritis especially involving his knees. S/p gel one knee injections bilaterally (5) intermediate current use of systemic steroids: Code(s): Z79.52 - intermediate (current) use of systemic steroids Plan: #Long-term Use of Steroids Discussed with patient the risks and benefits of steroid for managing the rheumatic condition Benefits include: - Reduced pain, improved mobility, increased participation in activities, and decreased progression of disease Risks include: - GI upset, potential ultrasound worsening or formation (especially in patients > 65 years old), elevated blood pressure/worsening hypertension, elevated blood sugar/worsening diabetes control, worsening of bone density, elevated lipids/worsening triglycerides, cataract formation, weight gain Recommended using proton pump inhibitors (PPIs) for the duration of steroid use to reduce the risk of gastric ulcers and vitamin-D daily to reduce the risk of osteoporosis Labs checked: A1c, T spot, hepatitis-B and C serologies Pneumocystis jiroveci prophylaxis: Patient with risk factors including steroids greater than 50 mg for more than 30 days, age greater than 60 years, and lung involvement from underlying rheumatic disease requires prophylaxis and will be given so Plan Procedure only Orders: Orders AMB Joint Injection/Aspiration Today M17.0 - Bilateral primary osteoarthritis of knee AMB Joint Injection/Aspiration Today M17.0 - Bilateral primary osteoarthritis of knee Medications: New prednisone 1 mg orally; 120 tabs 0RF M35.3 - Polymyalgia rheumatica Refilled prednisone 5 mg PO DAILY 90 tabs 1RF 90 days M35.3 - Polymyalgia rheumatica Coding Level of Care Code Procedure Only Diagnoses Primary osteoarthritis of both knees M17.0 Osteoarthritis type: primary Chronic pain of both shoulders M25.511; M25.512; G89.29 Chronicity: chronic PMR (polymyalgia rheumatica) M35.3 Polyarticular osteoarthritis M15.9 intermediate current use of systemic steroids Z79.52 CPT Codes Coding - 68750 Large joint: 04208 - Large joint ([id number]) Coding - 39518 Large joint: 59834 - Large joint ([id number])
[2025-04-23 08:27] VITALS: BP 120/84; PULSE 89; O2SAT 98; BMI 26.4
--- OUTSIDE RECORDS SUMMARY | 2025-04-23 08:30 | XMS_ITS | Patient Health Record ---
Author [facility] Address [address] [place] [address] Care Team Providers Care Home Health Registered Nurse Name Role Phone Inessa MCINTOSH, [place] Primary Care Provider Emile Rios Unavailable [phone] Reason For Referral No Information Medications Medication [...] Status W/U Status Risk Notes Problem Onychomycosis (246335287) Onychomycosis (110.1) Active confirmed Problem Pain in limb (92654841) Pain in Limb (729.5) Active confirmed Problem Disorder of joint of ankle and/or foot (558431510) Arthritis - Degenerative (719.97) Active confirmed Problem Hammer toe (832838134) Hammer toe (735.4) Active confirmed Problem Pain in limb (08317971) Pain in Limb (729.5) Active confirmed Problem Neurologic disorder associated with type II diabetes mellitus (158024186) 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 Problem Keratoma (44331022) 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.1) Active confirmed Plan Of Treatment Pending Test Test Name Order Date X ray : Foot, right 2V 10/06/2014 [id number] NAIL, 6 OR MORE 10/06/2014 [id number] SKIN LESIONS, OVER 4 10/06/19 15 Insurance Providers Payer Name Payer Address Payer Phone Subscriber Number Group Number Insured Name Patient Relationship to Insured Coverage Start Date Coverage End Date [facility] [address] [facility] [place] blevins [phone] [id number] Scottie Beth Self - patient is the insured Medical (General) History Medical History History ICD Code Arthritis asthma chronic sinusitis
== END 2025-04-23 09:05 | disposition home or self-care (01) ==
LOC: HO.RHES 08:12
PROVIDERS: PCP Nurse Practitioner Family; Visit Provider Student in an Organized Health Care Education/Training Program
DX: M17.0 Bilateral primary osteoarthritis of knee (principal); M25.511 Pain in right shoulder; M25.512 Pain in left shoulder; G89.29 Other chronic pain; M35.3 Polymyalgia rheumatica; M15.9 Polyosteoarthritis, unspecified; Z79.52 Long term (current) use of systemic steroids
CPT/HCPCS: 20610; 99214

== ENCOUNTER → 2025-04-23 08:12 | Outpatient (BNVA) | payer MEDICARE, SELFPAY | PROVIDERS: PCP Nurse Practitioner Family; Visit Provider Student in an Organized Health Care Education/Training Program | DX: M17.0 Bilateral primary osteoarthritis of knee (principal); M25.511 Pain in right shoulder; M25.512 Pain in left shoulder; G89.29 Other chronic pain; M35.3 Polymyalgia rheumatica; Z79.52 Long term (current) use of systemic steroids | CPT/HCPCS: 20610; 99212; J7326 ==

== ENCOUNTER 2025-05-18 14:28 | Emergency (ER) | payer MEDICARE, SELFPAY ==
--- NOTE | ~2025-05-18 | XR_ITS ---
EXAMINATION: XR CHEST 2 VIEWS HISTORY: CP COMPARISON: Comparison is made with the prior examination dated 02/15/2025. FINDINGS: PA and lateral views of the chest are submitted. The lungs are expanded and clear. 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 There is no pleural effusion, pneumothorax, or pulmonary vascular congestion. The heart is normal in size. The aorta is tortuous. There is degenerative disc disease of the spine. XR/XR chest 2V IMPRESSION: No acute cardiopulmonary abnormality. Electronically signed by: Talon Steve MD 05/18/2025 03:16 PM EDT
[2025-05-18 14:47] VITALS: BP 117/54; PULSE 53; RESP 18; TEMP 36.3; O2SAT 95; BMI 26.4
--- NOTE | 2025-05-18 14:48 | ED.GENADULT ---
HPI - General Adult General Chief complaint: General Medical Stated complaint: congestion, cough Time Seen by Provider: 05/18/25 19:02 Related Data Home Medications ?Medication ?Instructions ?Recorded ?Confirmed atorvastatin 40 mg tablet 40 mg PO DAILY 07/02/24 04/23/25 empagliflozin 25 mg tablet 25 mg PO DAILY 07/02/24 04/23/25 (Jardiance) metformin 500 mg tablet 1,000 mg PO BID 07/02/24 04/23/25 tramadol 50 mg tablet 50 - 100 mg PO QID PRN 07/02/24 04/23/25 valsartan 160 mg tablet 160 mg PO DAILY 07/02/24 04/23/25 Previous Rx's ?Medication ?Instructions ?Recorded doxycycline hyclate 100 mg tablet 100 mg PO DAILY #14 tabs 09/10/24 prednisone 1 mg tablet 1 mg PO .COMPLEX #120 tabs 04/23/25 prednisone 5 mg tablet 5 mg PO DAILY 90 days #90 tabs 04/23/25 Allergies Allergy/AdvReac Type Severity Reaction Status Date / Time No Known Allergies Allergy Verified 05/18/25 14:49 [facility] Past Medical History Medical History PMR (polymyalgia rheumatica) 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 Pleural plaque Pneumonia Echocardiogram abnormal Umbilical hernia 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 Polyp of nasal cavity Osteoarthritis of both knees Osteoarthritis of both hands Onychomycosis Undescended left testicle Left ventricular hypertrophy Low vitamin B12 level Insomnia Hard of hearing Glenohumeral arthritis Glaucoma Fatty liver Hyperlipidemia Disorder of rotator cuff of both shoulders CKD stage G2/A2, GFR 60-89 and albumin creatinine ratio 30-299 mg/g CKD (chronic kidney disease) Chronic rhinitis Chronic back pain Chronic anemia Carpal tunnel syndrome Benign essential HTN Asthma Aortic valve stenosis Anxiety Family History Family History Father History of arthritis Social History Social History Household Members: Spouse Housing: House Alcohol intake: former Patient Tobacco Use Status: Former Tobacco user Years Smoked: 30 Smoked in Last 30 Days: No Use of substances other than those prescribed or required for medical reasons: No Advance Directives: Yes Advance Directives on File: Yes Advance Directives Date on File: 02/22/25 Physical Exam ED Vital Signs: Vital Signs - 24 hr 05/18/25 14:47 05/18/25 18:46 Temperature 97.4 F 97.7 F Pulse Rate 53 65 Respiratory Rate 18 14 Blood Pressure 117/54 L 125/63 Pulse Oximetry 95 95 Oxygen Delivery Method Room Air Room Air BMI result Body Mass Index 26.4 Course Course Course Narrative: This is an RME: Additional HPI, ROS, PE not included below will be deferred to primary provider. RME assessment and note performed by: Flores Batista PA-C This is a 89-vlma-fzw-male,DM2, PMR, with recent COVID infection dx 02/15, hx orthostatic hypotension, asthma, CKD, HLD, who presents to the ER with a complaint of cough, congestion. Patient reports he has had a cough for the last 5 days. Wheezes and rhonchi noted. No lower extremity swelling. Plan: Labs, chest x-ray, EKG, further ER evaluation needed. Medical Decision Making Medical Decision Making MDM Narrative: 7:51 PM 05/18/2025 (DR. ALYSA GODINEZ): THIS PATIENT LEFT PRIOR TO BEING EVALUATED BY MYSELF. HE HAS BEEN EVALUATED BY PA AND DIAGNOSTIC WORKUP INITIATED WHICH I HAVE REVIEWED NO EMERGENT ACTIONABLE FINDINGS ON THIS. Lab Data 05/18/25 15:03 05/18/25 15:04 Labs: Lab Results 05/18/25 05/18/25 Range/Units 15:03 15:04 WBC 5.9 (4.8-10.8) X10*3/uL RBC 4.06 L (4.60-5.80) X10*6/uL Hgb 11.5 L (14.0-18.0) g/dl Hct 34.5 L (42.0-52.0) % MCV 85.0 (80.0-98.0) fL MCH 28.3 (27.0-33.0) pg MCHC 33.3 (31.0-36.0) g/dl RDW 18.2 H (11.0-16.0) % Plt Count 251 (160-400) X10*3/uL MPV 8.5 L (9.4-12.4) fL Immature Gran % (Auto) 1.9 H (0.0-0.4) % Neut % (Auto) 40.6 L (45-73) % Lymph % (Auto) 45.8 H (20-40) % [place] % (Auto) 6.3 (2-11) % Eos % (Auto) 4.9 H (0-4) % Baso % (Auto) 0.5 (0-2) % Lymph # (Auto) 2.7 (1.2-4.9) X10*3/uL [place] # (Auto) 0.4 (0.1-1.2) X10*3/uL Eos # (Auto) 0.3 (0.0-0.4) X10*3/uL Baso # (Auto) 0.0 (0.0-0.2) X10*3/uL Abs Immat Gran (auto) 0.11 H (0.00-0.03) X10*3/uL Absolute Neuts (auto) 2.4 (2.0-8.3) x10*3/uL Absolute Nucleated RBC 0.000 (0.0-0.012) X10*3/uL Nucleated RBC % (auto) 0.0 (0.0-0.2) /100WBC Sodium 134 L (135-145) mmol/L Potassium 4.8 (3.3-5.1) mmol/L Chloride 103 (96-108) mmol/L Carbon Dioxide 22 (22-29) mmol/L Anion Gap 14 (12-20) BUN 22 H (9-16) mg/dL Creatinine 1.18 (0.5-1.4) mg/dL Estim Creat Clear Calc 47.8 Estimated GFR 59 Random Glucose 246 H (60-115) mg/dL Calcium 8.8 (8.4-10.2) mg/dL Magnesium 2.3 (1.6-2.6) mg/dL Total Bilirubin 0.5 (0.0-1.0) mg/dL Direct Bilirubin 0.3 (0.0-0.5) mg/dL AST 23 (5-37) U/L ALT 15 (0-40) U/L Alkaline Phosphatase 96 (39-117) U/L Troponin I High Sens 14.6 (<3.5-35.0) ng/L NT-Pro-B Natriuret Pep 531.0 H (<300) pg/mL Total Protein 7.4 (6.5-8.0) g/dL Albumin 4.3 (3.5-5.0) g/dL COVID-19 (LA) Negative (Negative) COVID-19 Clin Com See Note Influenza Type A (LEA) Negative (Negative) Influenza Type B (LEA) Negative (Negative) Influenza A & B Note See Note Discharge Plan Discharge Clinical Impression: Cough Patient Disposition: Left W/O Completing Treatment Prescriptions: No Action prednisone 1 mg tablet 1 mg PO .COMPLEX Qty: 120 0RF Rx Instructions: 1 mg orally; Take 4 tablets daily for 30 days then 3 tablets daily for 30 days then 2 tablets daily for 30 days then 1 tablet daily for 30 days To be taken with 5mg prednisone tablet daily doxycycline hyclate 100 mg tablet 100 mg PO DAILY Qty: 14 0RF prednisone 5 mg tablet 5 mg PO DAILY 90 Days Qty: 90 1RF valsartan 160 mg tablet 160 mg PO DAILY tramadol 50 mg tablet 50 - 100 mg PO QID PRN Jardiance 25 mg tablet 25 mg PO DAILY atorvastatin 40 mg tablet 40 mg PO DAILY metformin 500 mg tablet 1,000 mg PO BID Interventions: KIM Worksheet Last Done: 05/18/25 19:36 Discharge Date/Time: 05/18/25 19:37
--- NOTE | 2025-05-18 14:50 | ECG_ITS ---
Test Reason : SOB Blood Pressure : */* mmHG Vent. Rate : 78 BPM Atrial Rate : 78 BPM P-R Int : 244 ms QRS Dur : 90 ms QT Int : 394 ms P-R-T Axes : 20 -28 29 degrees QTcB Int : 449 ms Sinus rhythm with 1st degree A-V block with frequent Premature ventricular complexes in a pattern of bigeminy Otherwise normal ECG When compared with ECG of 22-Feb-2025 08:59, No significant change was found Referred By: Flores Batista Electronically Signed By: PHIL JIN
[2025-05-18 15:11] LABS: MANUAL DIFF FLAG NO
[2025-05-18 15:20] LABS: Hematocrit 34.5 % (42.0-52.0); Hemoglobin 11.5 g/dl (14.0-18.0); Imm Gran Abs Auto 0.11 X10*3/uL (0.00-0.03); Imm Gran Pct Auto 1.9 % (0.0-0.4); Lymphocytes Absolute Auto 2.7 X10*3/uL (1.2-4.9); Mean Corpuscular HGB Conc 33.3 g/dl (31.0-36.0); Mean Corpuscular Hemoglobin 28.3 pg (27.0-33.0); Mean Corpuscular Volume 85.0 fL (80.0-98.0); NRBC Abs Auto 0.000 X10*3/uL (0.0-0.012); NRBC Pct Auto 0.0 /100WBC (0.0-0.2); Platelet Count 251 X10*3/uL (160-400); Red Blood Count 4.06 X10*6/uL (4.60-5.80); White Blood Count 5.9 X10*3/uL (4.8-10.8)
[2025-05-18 15:27] LABS: Alanine Aminotransferase 15 U/L (0-40); Albumin Level 4.3 g/dL (3.5-5.0); Alkaline Phosphatase 96 U/L (39-117); Anion Gap 14 (12-20); Aspartate Amino Transferase 23 U/L (5-37); Blood Urea Nitrogen 22 mg/dL (9-16); Calcium 8.8 mg/dL (8.4-10.2); Carbon Dioxide 22 mmol/L (22-29); Chloride 103 mmol/L (96-108); Creatinine Clr Calc Pharmacy 47.8; Estimated Glomerular Filt Rate 59; Magnesium 2.3 mg/dL (1.6-2.6); Potassium 4.8 mmol/L (3.3-5.1); Sodium 134 mmol/L (135-145); Total Protein 7.4 g/dL (6.5-8.0)
[2025-05-18 15:28] LABS: IDNOW Serial# 08D9AD1C
[2025-05-18 15:29] LABS: COVID-19 Test Negative (Negative)
[2025-05-18 15:29] LABS: IDNOW Serial# 58CA691E; Influenza B2 Negative (Negative)
[2025-05-18 15:32] LABS: NT Pro B Type Natriuretic Pept 531.0 pg/mL (<300)
[2025-05-18 15:33] LABS: Troponin-I High Sensitivity 14.6 ng/L (<3.5-35.0)
[2025-05-18 18:46] VITALS: BP 125/63; PULSE 65; RESP 14; TEMP 36.5; O2SAT 95
--- OUTSIDE RECORDS SUMMARY | 2025-05-18 18:56 | XMS_ITS | Patient Health Record ---
Author Organization [facility] Address [address] [place] [address] Care Team Providers Care Cafe Manager Name Role Phone Inessa MCINTOSH, [place] Primary Care Provider Emile Rios Unavailable [phone] Reason For Referral No Information Medications Medication [...] Problem Status W/U Status Risk Notes Problem Information temporarily unavailable Onychomycosis (110.1) Active confirmed Problem Information temporarily unavailable Pain in Limb (729.5) Active confirmed Problem Information temporarily unavailable Arthritis - Degenerative (719.97) Active confirmed Problem Information temporarily unavailable Hammer toe (735.4) Active confirmed Problem Information temporarily unavailable Pain in Limb (729.5) Active confirmed Problem Information temporarily unavailable 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 Problem Information temporarily unavailable 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.1) Active confirmed Plan Of Treatment Pending Test Test Name Order Date X ray : Foot, right 2V 10/06/2014 [id number] NAIL, 6 OR MORE 10/06/2014 [id number] SKIN LESIONS, OVER 4 10/06/19 15 Insurance Providers Payer Name Payer Address Payer Phone Subscriber Number Group Number Insured Name Patient Relationship to Insured Coverage Start Date Coverage End Date [facility] [address] [facility] [place] [phone] [id number] Scottie Beth Self - patient is the insured Medical (General) History Medical History History ICD Code Arthritis asthma chronic sinusitis
--- NOTE | 2025-05-18 19:12 | PC.NURSE ---
assumed care of pt. Pt sitting on side of stretcher, respirations even and unlabored, pt denies pain. states he has been congested for days, has not taken any OC medication.
--- NOTE | 2025-05-18 19:32 | PC.NURSE ---
pt walked out of ED, did not want to wait, advised we would prefer he stay but ultimately he would have to make the decision. Pt in [facility] area speaking with registration, recharger aware.
== END 2025-05-18 19:37 | disposition left against medical advice (07) ==
PROVIDERS: Physician Assistant Medical; Emergency Provider Emergency Medicine; PCP Nurse Practitioner Family
DX: R05.9 Cough, unspecified (principal); E11.9 Type 2 diabetes mellitus without complications; J45.909 Unspecified asthma, uncomplicated; N18.9 Chronic kidney disease, unspecified; E78.5 Hyperlipidemia, unspecified; Z53.29 Procedure and treatment not carried out because of patient's decision for other reasons; Z03.818 Encounter for observation for suspected exposure to other biological agents ruled out
CPT/HCPCS: 36415; 71046; 80048; 80076; 83735; 83880; 84484; 85025; 87502; 87635; 93005; 99283; 99284

== ENCOUNTER → 2025-05-18 14:50 | Outpatient (BNV) | payer MEDICARE, SELFPAY | PROVIDERS: Emergency Provider Emergency Medicine; PCP Nurse Practitioner Family; Visit Provider Internal Medicine | DX: I44.0 Atrioventricular block, first degree (principal); I49.3 Ventricular premature depolarization | CPT/HCPCS: 93010 ==

== ENCOUNTER → 2025-05-18 14:51 | Outpatient (BNV) | payer MEDICARE, SELFPAY | PROVIDERS: PCP Nurse Practitioner Family; Visit Provider Radiology Diagnostic Radiology | DX: R07.9 Chest pain, unspecified (principal) | CPT/HCPCS: 71046 ==

== ENCOUNTER 2025-05-21 11:48 | Outpatient (AMB) | payer MEDICARE, SELFPAY ==
[2025-05-21 11:56] VITALS: BP 108/70; PULSE 85; TEMP 36.4; O2SAT 95; BMI 26.4
--- NOTE | 2025-05-21 11:56 | MHC.OFFWIV ---
Intake Vital Signs 05/21/25 11:56 Height 5 ft 11 in Weight 189 lb BMI 26.4 BP 108/70 Blood Pressure Location Lt brachial Position Sitting Pulse 85 Pulse Source Pulse Oximeter Temp 97.5 F Temp Source Oral Pulse Oximetry (%) 95 Oxygen Delivery Method Room Air Intake Visit Reasons: EP-chest cold, sob, cough Intake Note: pt presents with non resolving coughing, chest congestion and denies SOB- was seen at [facility] 05/18/25 and left AMA after 5 hours Patient Tobacco Use Status: Former Tobacco user Allergies No Known Allergies Allergy (Verified 05/21/25 11:58) Do you need a note to return to daycare/school/sports/work: No HPI EP-chest cold, sob, cough HPI Details This is an 85 year old male patient who presents to the [place] clinic today with report of ongoing cough and chest congestion for the last week or so. He was seen in the [facility] 3 days ago on 05/18 for similar complaints. He had initial labwork and EKG completed, however left AMA after waiting for several more hours without being seen. Patient reports productive cough with clear, sometimes yellow sputum. Denies shortness of breath. Denies any known exposure to sick contacts. Reports cough is the most bothersome for him, particularly at night. On long-term corticosteroids for arthritis, currently tapering down and is on 4mg/day. 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 Polyp of nasal cavity Osteoarthritis of both knees Osteoarthritis of both hands Onychomycosis Undescended left testicle Left ventricular hypertrophy Low vitamin B12 level Insomnia Hard of hearing Glenohumeral arthritis Glaucoma Fatty liver Hyperlipidemia Disorder of rotator cuff of both shoulders CKD stage G2/A2, GFR 60-89 and albumin creatinine ratio 30-299 mg/g CKD (chronic kidney disease) Chronic rhinitis Chronic back pain Chronic anemia Carpal tunnel syndrome Benign essential HTN Asthma Aortic valve stenosis Anxiety Family History Father History of arthritis Social History Household Members: Spouse Housing: House Alcohol intake: former Patient Tobacco Use Status: Former Tobacco user Years Smoked: 30 Advance Directives Date on File: 02/22/25 Review of Systems Const All systems reviewed & are unremarkable except as noted in HPI and below Physical Exam Vital Signs: Last Vital Signs Temp 97.5 F 05/21/25 11:56 Pulse 85 05/21/25 11:56 BP 108/70 05/21/25 11:56 Pulse Ox 95 05/21/25 11:56 Oxygen Delivery Method Room Air 05/21/25 11:56 BMI result Body Mass Index 26.4 Const General: cooperative and no acute distress Nutritional Appearance: average body habitus HEENT Head: Yes normal to inspection Ears: hearing grossly normal bilaterally General nose exam: Normal external nose present Face and sinus: Yes normal facial exam Mouth: Normal oral and palatal mucosa present Neck Neck: Yes no lymphadenopathy Resp Effort & Inspection: normal respiratory effort and Actively coughing Quality: productive Auscultation: rhonchi (primarily upper b/l, scattered in lower b/l ) Cardio Rate: regular rate Rhythm: regular rhythm Skin General skin exam: no rashes or lesions noted Extrem General: Yes capillary refill normal and Yes no clubbing, cyanosis or edema Psych Appearance: grossly normal Mental Status: mental status grossly normal Speech and movement: Normal speech and movement present Assessment & Plan Assessment & Plan (1) Upper respiratory infection, acute: Code(s): J06.9 - Acute upper respiratory infection, unspecified Plan: EKG done in the office today due to abnormal rhythm noted upon auscultation. SR with T1 AVB and PACs on EKG. This was compared with EKG done in the ED which also showed AVB and PVCs. Patient denies any cardiac symptoms - no palpitations, chest pain, dizziness, shortness of breath. He has been seen previously at [facility]. I advised patient call his PCP office today to see if he can get in for a f/u appointment sometime next week if possible for evaluation. Patient agrees to this. Will start on abx for URI as well as Benzonatate for lung assessment and cough. We reviewed indications, use, possible s/e of medications. He can continue to Prednisone regimen for arthritis management. We discussed indications for prompt evaluation at the ED, including shortness of breath, development of fevers/chills/malaise, or any cardiac symptoms previously discussed. Patient and spouse Sweta both verbalize understanding and agre to plan discussed today. Orders: Orders AMB EKG-In Office Today Paula Haji PA-C R53.1 - Weakness Medications: New amoxicillin-pot clavulanate 875-125 mg 1 tab PO BID 14 tabs 0RF 7 days KIA Vasquez J06.9 - Acute upper respiratory infection, unspecified benzonatate 100 mg PO BID PRN 14 caps 0RF cough 7 days KIA Vasquez R05.9 - Cough, unspecified Coding Level of Care Code Est Pt Level 4 (01878) Diagnoses Upper respiratory infection, acute J06.9
--- OUTSIDE RECORDS SUMMARY | 2025-05-21 12:50 | XMS_ITS | Patient Health Record ---
Author Organization [facility] Address [address] [place] [address] Care Team Providers Care Cradle Placer Name Role Phone Inessa MCINTOSH, [place] Primary Care Provider Emile Rios Unavailable [phone] Reason For Referral No Information Medications Medication [...] Status W/U Status Risk Notes Problem Onychomycosis (372881982) Onychomycosis (110.1) Active confirmed Problem Pain in limb (56061019) Pain in Limb (729.5) Active confirmed Problem Disorder of joint of ankle and/or foot (797597455) Arthritis - Degenerative (719.97) Active confirmed Problem Hammer toe (260549614) Hammer toe (735.4) Active confirmed Problem Pain in limb (43117121) Pain in Limb (729.5) Active confirmed Problem Neurologic disorder associated with type II diabetes mellitus (743915601) 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 Problem Keratoma (36293122) 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.1) Active confirmed Plan Of Treatment Pending Test Test Name Order Date X ray : Foot, right 2V 10/06/2014 [id number] NAIL, 6 OR MORE 10/06/2014 [id number] SKIN LESIONS, OVER 4 10/06/19 15 Insurance Providers Payer Name Payer Address Payer Phone Subscriber Number Group Number Insured Name Patient Relationship to Insured Coverage Start Date Coverage End Date [facility] [address] [facility] [place] [id number] Scottie Beth Self - patient is the insured Medical (General) History Medical History History ICD Code Arthritis asthma chronic sinusitis
== END 2025-05-21 13:49 | disposition home or self-care (01) ==
PROVIDERS: PCP Nurse Practitioner Family; Visit Provider Nurse Practitioner Family
DX: J06.9 Acute upper respiratory infection, unspecified (principal)

== ENCOUNTER → 2025-05-21 11:48 | Outpatient (BNVA) | payer MEDICARE, SELFPAY | PROVIDERS: PCP Nurse Practitioner Family; Visit Provider Nurse Practitioner Family | DX: R53.1 Weakness (principal); J06.9 Acute upper respiratory infection, unspecified; R50.9 Fever, unspecified | CPT/HCPCS: 99212 ==

== ENCOUNTER 2025-05-28 11:08 | Outpatient (AMB) | payer MEDICARE, SELFPAY ==
[2025-05-28 11:09] VITALS: BP 98/64; PULSE 98; TEMP 36.4; O2SAT 96; BMI 26.4
--- NOTE | 2025-05-28 11:09 | AM.OFFWIN_ITS ---
Intake Vital Signs 05/28/25 11:09 Height 5 ft 11 in Weight 189 lb BMI 26.4 BP 98/64 Blood Pressure Location Rt brachial Position Sitting Pulse 98 Pulse Source Pulse Oximeter Temp 97.5 F Temp Source Oral Pulse Oximetry (%) 96 Oxygen Delivery Method Room Air Intake Visit Reasons: EP Coughing, SOB Patient Tobacco Use Status: Former Tobacco user Allergies No Known Allergies Allergy (Verified 05/28/25 11:11) Do you need a note to return to daycare/school/sports/work: No HPI HPI Comments History of Present Illness Details This is an 85-year-old male who presented to the walk-in clinic complaining of persistent cough and shortness of breath. Patient was seen [facility] on 05/18/2025 for cough and chest congestion. He had lab work and a chest x-ray; however, he left against medical advice prior to completion of evaluation/treatment but it appears his lab work and chest x-ray were negative for acute findings. He was then evaluated at the walk-in clinic on 05/21/2025 for persistent cough and chest congestion. Patient was treated with PO amoxicillin/clavulanate 875/125 mg twice daily x7 days, which he completed. Patient states he is still having a persistent cough with sometimes clear sometimes yellow sputum. He also complains of severe fatigue. Patient states he had an episode of shortness of breath on exertion this morning, which is new and prompted his visit to the walk-in clinic today. He denies any lower extremity edema. He denies any fevers or chills. 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 Polyp of nasal cavity Osteoarthritis of both knees Osteoarthritis of both hands Onychomycosis Undescended left testicle Left ventricular hypertrophy Low vitamin B12 level Insomnia Hard of hearing Glenohumeral arthritis Glaucoma Fatty liver Hyperlipidemia Disorder of rotator cuff of both shoulders CKD stage G2/A2, GFR 60-89 and albumin creatinine ratio 30-299 mg/g CKD (chronic kidney disease) Chronic rhinitis Chronic back pain Chronic anemia Carpal tunnel syndrome Benign essential HTN Asthma Aortic valve stenosis Anxiety Family History Father History of arthritis Social History Household Members: Spouse Housing: House Alcohol intake: former Patient Tobacco Use Status: Former Tobacco user Years Smoked: 30 Advance Directives Date on File: 02/22/25 Review of Systems Const All systems reviewed & are unremarkable except as noted in HPI and below Reports no additional complaints Eyes Reports no additional complaints ENT Reports no additional complaints Card Reports no additional complaints Resp Reports no additional complaints GI Reports no additional complaints Reports no additional complaints Musc Reports no additional complaints Skin/Breast Reports system reviewed and no additional complaints, except as documented Neuro Reports no additional complaints Psych Reports no additional complaints Endo Reports no additional complaints Saul/Lymph Reports no additional complaints Aller/Immun Reports no additional complaints Physical Exam Exam Exam: Vital signs reviewed. Constitutional: Non-toxic appearing but slightly ill-appearing. No acute distress. Well-developed and well-nourished. HEENT: Normocephalic and atraumatic. PERRL/EOMI. Skin: Warm and dry. No rashes or lesions noted. Neck: Full and painless range of motion. No cervical lymphadenopathy. Cardio: Regular rate, slightly irregular (patient's baseline). No murmurs, gallops, or rubs. No lower extremity edema. No JVD. Pulmonary: No respiratory distress. No accessory muscle usage. Scattered rhonchorous breath sounds throughout both lungs. Gastrointestinal: Soft, nontender, and nondistended in all 4 quadrants. Musculoskeletal: Normal range of motion in joints throughout the body. No deformity or other signs of injury. Neuro: Alert and oriented x4. Cranial nerves 2-12 grossly intact. No focal deficits appreciated. Psych: Normal mood and affect. Vital Signs: Last Vital Signs Temp 97.5 F 05/28/25 11:09 Pulse 98 05/28/25 11:09 BP 98/64 05/28/25 11:09 Pulse Ox 96 05/28/25 11:09 Oxygen Delivery Method Room Air 05/28/25 11:09 BMI result Body Mass Index 26.4 Assessment & Plan Assessment & Plan (1) Pneumonia, community acquired: Code(s): J18.9 - Pneumonia, unspecified organism Qualifiers: Laterality: unspecified laterality Qualified Code(s): J18.9 - Pneumonia, unspecified organism Plan This is an 85-year-old male who presented to the walk-in clinic complaining of persistent cough and shortness of breath despite antibiotic treatment. On physical examination, patient has scattered rhonchorous breath sounds throughout both lungs and a frequent junky productive cough. Patient was given a prescription for PO amoxicillin/clavulanate 875/125 mg twice daily for an additi onal 5 days as well as PO azithromycin 500 mg today followed by 250 mg daily x4 days for atypical coverage to treat for presumed community-acquired pneumonia. I also recommended use of [id number]-orxhzur guaifenesin as well as humidification/steam to aid with mucociliary clearance. Patient was advised to proceed directly to the emergency room if he were to develop worsening shortness of breath, fever/chills, worsening sputum production/purulence or hemoptysis, or lower extremity edema/sudden weight gain. Patient was advised to follow up with his primary care physician following treatment if his symptoms persist. Patient and his verbalized their understanding and they are in agreement with the plan. Medications: New amoxicillin-pot clavulanate 875-125 mg 1 tab PO BID 10 tabs 0RF azithromycin For 250 mg dose pack: take 500 mg today (day 1), then 250 mg for 4 days (days 2-5) PO 6 tabs 0RF Coding Level of Care Code Est Pt Level 3 (94629) Diagnoses Community acquired pneumonia, unspecified laterality J18.9 Laterality: unspecified laterality
== END 2025-05-28 12:14 | disposition home or self-care (01) ==
PROVIDERS: PCP Nurse Practitioner Family; Visit Provider Physician Assistant Medical
DX: J18.9 Pneumonia, unspecified organism (principal)

== ENCOUNTER → 2025-05-28 11:08 | Outpatient (BNVA) | payer MEDICARE, SELFPAY | PROVIDERS: PCP Nurse Practitioner Family; Visit Provider Physician Assistant Medical | DX: R05.3 Chronic cough (principal); J18.9 Pneumonia, unspecified organism | CPT/HCPCS: 99212 ==

== ENCOUNTER 2025-06-28 10:37 | Outpatient (REF) | payer MEDICARE, SELFPAY ==
--- NOTE | ~2025-06-28 | XR_ITS ---
EXAMINATION: XR CHEST CLINICAL INFORMATION: R05.9 - Cough, unspecified COMPARISON: 05/18/2025 TECHNIQUE: 2 views of the chest were obtained. FINDINGS: Again seen are bilateral calcified pleural plaques, the most visible plaque projects in the mid third right lung. There is no pneumothorax. Lungs are clear. There is no pleural effusion. Heart size is within normal limits. Moderate degenerative changes are present in the mid to lower thoracic spine. 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 Electronically signed by: Ivan Mcconnell MD 06/28/2025 11:33 AM [facility]I
[2025-06-28 14:34] LABS: Resp Syncy Virus RNA Qual PCR NEGATIVE (Negative); SARS COV2 PCR INHOUSE NEGATIVE (Negative)
== END 2025-06-28 10:38 | disposition home or self-care (01) ==
LOC: HO.HMGCX 10:37
PROVIDERS: PCP Nurse Practitioner Family; Visit Provider Physician Assistant Medical
DX: R09.89 Other specified symptoms and signs involving the circulatory and respiratory systems (principal); R05.9 Cough, unspecified; J06.9 Acute upper respiratory infection, unspecified; Z79.51 Long term (current) use of inhaled steroids; Z87.891 Personal history of nicotine dependence
CPT/HCPCS: 71046; 87637; 99212

== ENCOUNTER 2025-06-28 10:37 | Outpatient (AMB) | payer MEDICARE, SELFPAY ==
[2025-06-28 10:39] VITALS: BP 102/47; PULSE 83; RESP 20; TEMP 36.5; O2SAT 96; BMI 27.2
--- NOTE | 2025-06-28 10:39 | AM.OFFWIN_ITS ---
Intake Vital Signs 06/28/25 10:39 Height 5 ft 11 in Weight 195 lb BMI 27.2 BP 102/47 L Blood Pressure Location Lt brachial Position Sitting Respiration 20 Pulse 83 Pulse Source Pulse Oximeter Temp 97.7 F Temp Source Oral Pulse Oximetry (%) 96 Oxygen Delivery Method Room Air Comment BP w/ low diastolic, dyspnea on observation, provider notified. Intake Visit Reasons: EP-headache, chest congestion, cough Intake Note: pt presents with non resolving sinus and chest congestion with productive cough, headaches s/p treated pneumonia (last seen in walk in on 05/28/2025) Patient Tobacco Use Status: Former Tobacco user Allergies No Known Allergies Allergy (Verified 06/28/25 10:48) Do you need a note to return to daycare/school/sports/work: No HPI HPI Comments History of Present Illness Details History - The patient is an 85-year-old male pre senting with persistent sinus congestion and cough. - Symptoms have been ongoing despite two rounds of antibiotics, initially treated in the ER on May 18 and followed up on May 21 and . - The patient reports sinus pain and pre ssure without fever or ear pain. - Cough is described as deep and bothers ome, affecting sleep, and is associated with some SOB. - The patient has been using an albutero l inhaler as needed and is on a daily dose of 5 mg prednisone. - Previous chest x-ray from the ER on did not show pneumonia. - The patient has been prescribed Augmen tin and a Z-Faisal in the past month for respiratory symptoms. - He continues to have a cough and sinus pressure. - He has no fever, chills, CP, abd pain, n/v/d night sweats, wt loss, or sick contacts. Physical Exam General: Cooperative, healthy appearing, comfortable and no acute distress Orientation/consciousness: Patient oriented x3 Limitations: No limitations Head: Normal to inspection Ears: Hearing grossly normal bilaterally, external ears normal and TM's normal bilaterally Nose: Normal external nose present, normal nares present, and no nasal discharge present. Face and sinus: Sinuses tender to palpation. Mouth: Normal oral and palatal mucosa present and moist mucous membranes noted. Throat: Tonsils normal. Uvula is midline. Posterior oropharynx with erythema and no exudates. Eyes: Appearance normal, both eyes and all related structures Neck: Normal visual inspection, full ROM. No lymphadenopathy noted. Respiratory: Normal respiratory effort, able to speak in complete sentences. No respiratory distress, not tachypneic, no tripod positioning and no use of accessory muscles. Rhonchi noted on auscultation. Cardiovascular: Regular rate and rhythm. Normal S1 and S2. No m/r/g noted. 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 Polyp of nasal cavity Osteoarthritis of both knees Osteoarthritis of both hands Onychomycosis Undescended left testicle Left ventricular hypertrophy Low vitamin B12 level Insomnia Hard of hearing Glenohumeral arthritis Glaucoma Fatty liver Hyperlipidemia Disorder of rotator cuff of both shoulders CKD stage G2/A2, GFR 60-89 and albumin creatinine ratio 30-299 mg/g CKD (chronic kidney disease) Chronic rhinitis Chronic back pain Chronic anemia Carpal tunnel syndrome Benign essential HTN Asthma Aortic valve stenosis Anxiety Family History Father History of arthritis Social History Household Members: Spouse Housing: House Alcohol intake: former Patient Tobacco Use Status: Former Tobacco user Years Smoked: 30 Advance Directives Date on File: 02/22/25 Review of Systems Const All systems reviewed & are unremarkable except as noted in HPI and below Physical Exam Vital Signs: Last Vital Signs Temp 97.7 F 06/28/25 10:39 Pulse 83 06/28/25 10:39 Resp 20 06/28/25 10:39 BP 102/47 L 06/28/25 10:39 Pulse Ox 96 06/28/25 10:39 Oxygen Delivery Method Room Air 06/28/25 10:39 BMI result Body Mass Index 27.2 Results Reviewed Results Reviewed: will review the x-ray in the office Assessment & Plan Assessment & Plan (1) URI with cough and congestion: Code(s): J06.9 - Acute upper respiratory infection, unspecified Plan Most likely URI vs flu vs covid vs rsv vs bronchitiis vs pneumonia plan - Plan to order a chest x-ray to ensure no pneumonia has developed. - Conduct a respiratory panel including COVID-19, RSV, and influenza testing. - Consideration of a different antibiotic - Continue use of albuterol inhaler as needed. - Contunue with current medications including prednisone - benzontate as needed for cough. - follow up with PCP - will call with the results Orders: Orders SARS-CoV2/FLU/RSV Today R09.89 - Other specified symptoms and signs involving the circulatory and respiratory systems XR chest 2V Today R05.9 - Cough, unspecified Medications: New benzonatate 100 mg PO bid-tid PRN 21 caps 0RF Cough 7 days doxycycline hyclate 100 mg PO BID 14 tabs 0RF Coding Level of Care Code Est Pt Level 4 (57314) Diagnoses URI with cough and congestion J06.9
== END 2025-06-28 11:36 | disposition home or self-care (01) ==
PROVIDERS: PCP Nurse Practitioner Family; Visit Provider Physician Assistant Medical
DX: J06.9 Acute upper respiratory infection, unspecified (principal)

== ENCOUNTER → 2025-06-28 11:22 | Outpatient (BNV) | payer MEDICARE, SELFPAY | PROVIDERS: PCP Nurse Practitioner Family; Visit Provider Radiology Diagnostic Radiology | DX: J92.9 Pleural plaque without asbestos (principal) | CPT/HCPCS: 71046 ==

== ENCOUNTER 2025-07-28 08:21 | Outpatient (AMB) | payer MEDICARE, SELFPAY ==
--- NOTE | 2025-07-28 08:42 | A.OFFVIS_ITS ---
Vital Signs 07/28/25 08:49 Height 5 ft 11 in Weight 194 lb 14.218 oz BMI 27.2 BP 118/70 Blood Pressure Location Lt brachial Position Sitting Pulse 91 Pulse Source Pulse Oximeter Pulse Oximetry (%) 98 Oxygen Delivery Method Room Air Intake Visit Reasons: 3months/ gel one inject Intake Note: Patient presents today for Gel One injection follow up and test results. Pnp Required: No Information Interpreted: non-clinical & clinical Accompanied by: Spouse Allergies No Known Allergies Allergy (Verified 07/28/25 08:48) HPI Comments Details: Patient is an 85-year-old male with hypertension, diabetes, hyperlipidemia, PMR and polyarticular osteoarthritis here today for Gel One injections Interval History: Patient last seen 04/22/25 with me - On prednisone 10mg daily - Here for knee injections - Received bilateral gel one injections - Tapered prednisone Today - On prednisone 3mg - Tapered faster than advised because they did not fully understand the instructions - No worsening sx - Complaining of bilateral knee pain, right > left - Also bilateral shoulder pain Rheumatologic History: Patient establish care 06/2024. Current working diagnosis of PMR based on elevated ESR/CRP, weight loss, fatigue and shoulder stiffness. 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 Polyp of nasal cavity Osteoarthritis of both knees Osteoarthritis of both hands Onychomycosis Undescended left testicle Left ventricular hypertrophy Low vitamin B12 level Insomnia Hard of hearing Glenohumeral arthritis Glaucoma Fatty liver Hyperlipidemia Disorder of rotator cuff of both shoulders CKD stage G2/A2, GFR 60-89 and albumin creatinine ratio 30-299 mg/g CKD (chronic kidney disease) Chronic rhinitis Chronic back pain Chronic anemia Carpal tunnel syndrome Benign essential HTN Asthma Aortic valve stenosis Anxiety Family History Father History of arthritis Social History Household Members: Spouse Housing: House Alcohol intake: former Patient Tobacco Use Status: Former Tobacco user Years Smoked: 30 Advance Directives Date on File: 02/22/25 Review of Systems Narrative Review of Systems Constitutional: Denies fever, chills, weight loss ENT: Denies vision changes, eye pain or eye redness, dental caries, dry mouth GI: Denies nausea, vomiting, diarrhea, abdominal pain, change in BM Pulm: Denies SOB, MELENDEZ, hemoptysis, wheezing Cards: Denies chest pain, palpitations Skin: Denies Raynaud's, rash, nail changes, photosensitivity, [employer]: Denies headaches, weakness, paresthesias, recurrent falls MSK: as per HPI All other systems reviewed and are unremarkable except noted above Physical Exam Exam Exam: Vital signs reviewed Physical Examination CONSTITUITIONAL Patient alert and cooperative. Well appearing and in no apparent painful distress MSK Hands * Right Hand: Not able to make a fist. No swelling or tenderness to palpation of the MCPs, PIPs or DIPs. * Left Hand: Not able to make a fist. No swelling or tenderness to palpation of the MCPs, PIPs or DIPs. * Diabetic cheiroarthropathy - positive prayer hand sign * Prominent [place] nodes throughout bilateral hands on the DIPs. Wrists * Right Wrist: decreased to flexion and extension. No swelling or TTP * Left Wrist: decreased to flexion and extension. No swelling or TTP Elbows * Right Elbow: Full ROM. No swelling or TTP. No TTP of the medial epicondyle. No TTP of the lateral epicondyle * Left Elbow: Full ROM. No swelling or TTP. No TTP of the medial epicondyle. No TTP of the lateral epicondyle Shoulders * Right shoulder: Decreased ROM. No swelling noted. TTP of the AC joint and subacromial bursa * Left shoulder: Decreased ROM. No swelling noted. TTP of the AC joint and subacromial bursa Knees * Right knee: Decreased ROM. No swelling noted. TTP of the knee joint line. No TTP of pes anserine bursa * Left knee: Decreased ROM. No swelling noted. TTP of the knee joint line. No TTP of pes anserine bursa. Ankles * Right ankle: Good ankle dorsiflexion and plantar flexion. No swelling. No TTP of the ankle joint * Left ankle: Good ankle dorsiflexion and plantar flexion. No swelling. No TTP of the ankle joint Feet * Right foot: Negative squeeze test * Left foot: Negative squeeze test Tender points? * No tenderness to palpation of the bilateral trapezius, supraspinatus, anterior costochondral junctions, bilateral suboccipital muscle insertions SKIN No rashes Vital Signs: Last Vital Signs Pulse 91 07/28/25 08:49 BP 118/70 07/28/25 08:49 Pulse Ox 98 07/28/25 08:49 Oxygen Delivery Method Room Air 07/28/25 08:49 BMI result Body Mass Index 27.2 Office Procedures AMB Joint Injection/Aspiration Joint Injection/Aspiration Details: Procedure was explained to the patient and informed consent was obtained. ? Risks associated with the procedure were discussed with the patient including but not limited to bleeding, infection, drug reactions and reactions to the topical anesthetic. Patient made aware of signs to look out for infectious complications. The area of interest was identified and confirmed with patient. ?This was subsequently cleaned with chlorhexidine x 2. ? The area was then anesthetized using ethyl chloride spray. 3cc Gel One was injected without issue. ?Minimal to no bleeding. ?Patient tolerated procedure. Primary Site: Right Knee Prep: site was prepped using aseptic technique and ethochloride spray was applied Injected: Gel One (3cc) and in the joint Procedure: The patient tolerated the procedure well Coding 67137 - Large joint Procedure code (CPT) selection complete AMB Joint Injection/Aspiration Joint Injection/Aspiration Details: Procedure was explained to the patient and informed consent was obtained. ? Risks associated with the procedure were discussed with the patient including but not limited to bleeding, infection, drug reactions and reactions to the topical anesthetic. Patient made aware of signs to look out for infectious complications. The area of interest was identified and confirmed with patient. ?This was subsequently cleaned with chlorhexidine x 2. ? The area was then anesthetized using ethyl chloride spray. 3 cc gel one was injected without issue. ?Minimal to no bleeding. ?Patient tolerated procedure. Primary Site: Left Knee Prep: site was prepped using aseptic technique and ethochloride spray was applied Injected: Gel One (3cc) and in the joint Procedure: The patient tolerated the procedure well Coding 67489 - Large joint Procedure code (CPT) selection complete Office Meds Gel-One 30 mg/3 mL intra-articular syringe Performing Provider: Augusta Johnson MD Performing Location: [facility] Administered by: Augusta Johnson MD on 07/28/25 09:31 Dose Route Admin Location Dispensed Lot Number Expiration Date [place] [employer] 30 mg intra-articular KNEE RIGHT 3 mL [id number] 01/10/27 12199-11611 [employer] Total Dispensed Waste 3 mL 0 % Gel-One 30 mg/3 mL intra-articular syringe Performing Provider: Augusta Johnson MD Performing Location: [facility] Administered by: Augusta Johnson MD on 07/28/25 09:31 Dose Route Admin Location Dispensed Lot Number Expiration Date [place] [employer] 30 mg intra-articular KNEE LEFT 3 mL [id number] 02/21/27 [id number] [employer] Total Dispensed Waste 3 mL 0 % Results Reviewed Results Reviewed: Laboratory Tests 12/25/24 04/22/25 09:45 11:02 WBC 7.1 RBC 4.39 L Hgb 12.6 L Hct 38.3 L Plt Count 263 D ESR 34 H 23 H Sodium 137 Potassium 5.1 Chloride 101 Carbon Dioxide 22 BUN 23 H Creatinine 1.34 Estimated GFR 51 AST 17 ALT 14 C-Reactive Protein 1.29 H 0.27 Laboratory Tests 07/03/24 09:17 Rheumatoid Factor < 13.0 Cycl Citrul Peptide IgG <16 XR Bilateral shoulders 04/2025 FINDINGS (Left): There is elevation of the humeral head and narrowing of the subacromial space. Small marginal sites are evident involving glenoid and humeral head. The AC joint is intact. It is narrowed with marginal osteophytes. There is a subacromial spur. Multifocal calcified pleural plaques are noted over the left chest wall. IMPRESSION: There are mild to moderate degenerative changes involving the left glenohumeral joint. Mild AC joint arthropathy is noted. Subacromial space narrowing and subacromial spur. There is elevation of the left humeral head raising question of underlying rotator cuff tear. Calcified pleural plaques, left chest wall FINDINGS (Right): There is severe narrowing of the glenohumeral joint. There is a moderate medial osteophyte. Glenoid demonstrates marginal osteophytes and central to lower subchondral degenerative cystic changes. The AC joint is intact and unremarkable. Calcific pleural plaque projects over the mid to upper right lung. IMPRESSION: Severe degenerative changes are present in the right shoulder joint. Right-sided calcified pleural plaque. Assessment & Plan Assessment & Plan (1) PMR (polymyalgia rheumatica): Comment: Ddx 07/2024 Prednisone 07/2024 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 - did not tolerate Kevzara 11/2024 - not not start Code(s): M35.3 - Polymyalgia rheumatica Category: Medical Plan: #PMR Patient is an 85 year old male with presumed PMR. His inflammatory markers have improved on steroids however he still has persistent shoulder pain. This shoulder pain is multifactorial: OA, calcific tendonitis and maybe PMR Patient did not follow up with a slow taper that I had in mind and is currently only on 3 mg of prednisone. We will check his inflammatory markers today and decrease his prednisone to 2.5 for the next 3 months Plan - Decrease prednisone to 2.5mg - RTC 3 months - Labs before visit: CBC, CMP, ESR, CRP (2) Osteoarthritis of both knees: Code(s): M17.0 - Bilateral primary osteoarthritis of knee Category: Medical Qualifiers: Osteoarthritis type: primary Qualified Code(s): M17.0 - Bilateral primary osteoarthritis of knee Plan: #OA bilateral knees S/p bilateral knee injections with gel one (3) Shoulder pain, bilateral: Code(s): M25.511 - Pain in right shoulder; M25.512 - Pain in left shoulder Qualifiers: Chronicity: chronic Qualified Code(s): M25.511 - Pain in right shoulder; M25.512 - Pain in left shoulder; G89.29 - Other chronic pain Plan: #Bilateral shoulder pain Patient with bilateral shoulder pain and bilateral reduced range of motion. X- rays reviewed and he likely has several underlying issues causing his shoulder pain. Rotator cuff disease/tears, osteoarthritis and presumed PMR. Given his inflammatory markers have trended down I think that we can try steroid injections in the subacromial bursa or in the posterior shoulder in the future since previous injections in the AC joint did not help (4) Polyarticular osteoarthritis: Code(s): M15.9 - Polyosteoarthritis, unspecified Category: Medical Plan: #Polyarticular OA Patient with polyarticular osteoarthritis especially involving his knees. 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: Code(s): Z79.52 - [facility] (current) use of systemic steroids Plan: #Long-term Use of Steroids Discussed with patient the risks and benefits of steroid for managing the rheumatic condition Benefits include: - Reduced pain, improved mobility, increased participation in activities, and decreased progression of disease Risks include: - GI upset, potential ultrasound worsening or formation (especially in patients > 65 years old), elevated blood pressure/worsening hypertension, elevated blood sugar/worsening diabetes control, worsening of bone density, elevated lipids/worsening triglycerides, cataract formation, weight gain Recommended using proton pump inhibitors (PPIs) for the duration of steroid use to reduce the risk of gastric ulcers and vitamin-D daily to reduce the risk of osteoporosis Labs checked: A1c, T spot, hepatitis-B and C serologies Pneumocystis jiroveci prophylaxis: Patient with risk factors including steroids greater than 50 mg for more than 30 days, age greater than 60 years, and lung involvement from underlying rheumatic disease requires prophylaxis and will be given so Plan I spent 30 minutes reviewing the record and labs, taking a history, examining the patient, discussing the treatment plan, ordering diagnostic work up and documenting in the medical record Orders: Orders AMB Joint Injection/Aspiration Today M17.0 - Bilateral primary osteoarthritis of knee AMB Joint Injection/Aspiration Today M17.0 - Bilateral primary osteoarthritis of knee Coding Level of Care Code Est Pt Level 3 (52673) Complex visit Add On G2211 Diagnoses PMR (polymyalgia rheumatica) M35.3 Primary osteoarthritis of both knees M17.0 Osteoarthritis type: primary Chronic pain of both shoulders M25.511; M25.512; G89.29 Chronicity: chronic Polyarticular osteoarthritis M15.9 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
[2025-07-28 08:49] VITALS: BP 118/70; PULSE 91; O2SAT 98; BMI 27.2
== END 2025-07-28 09:25 | disposition home or self-care (01) ==
LOC: HO.RHES 08:22
PROVIDERS: PCP Nurse Practitioner Family; Visit Provider Student in an Organized Health Care Education/Training Program
DX: M35.3 Polymyalgia rheumatica (principal); M17.0 Bilateral primary osteoarthritis of knee; M25.511 Pain in right shoulder; M25.512 Pain in left shoulder; G89.29 Other chronic pain; M15.9 Polyosteoarthritis, unspecified; Z79.52 Long term (current) use of systemic steroids
CPT/HCPCS: 20610; 99213

== ENCOUNTER 2025-07-28 08:21 | Outpatient (REF) | payer MEDICARE, SELFPAY ==
[2025-07-28 13:56] LABS: MANUAL DIFF FLAG NO
[2025-07-28 13:59] LABS: Hematocrit 38.4 % (42.0-52.0); Hemoglobin 12.2 g/dl (14.0-18.0); Imm Gran Abs Auto 0.06 X10*3/uL (0.00-0.03); Imm Gran Pct Auto 0.7 % (0.0-0.4); Lymphocytes Absolute Auto 3.8 X10*3/uL (1.2-4.9); Mean Corpuscular HGB Conc 31.8 g/dl (31.0-36.0); Mean Corpuscular Hemoglobin 28.2 pg (27.0-33.0); Mean Corpuscular Volume 88.7 fL (80.0-98.0); NRBC Abs Auto 0.000 X10*3/uL (0.0-0.012); NRBC Pct Auto 0.0 /100WBC (0.0-0.2); Platelet Count 315 X10*3/uL (160-400); Red Blood Count 4.33 X10*6/uL (4.60-5.80); White Blood Count 8.2 X10*3/uL (4.8-10.8)
[2025-07-28 14:21] LABS: Alanine Aminotransferase 14 U/L (0-40); Albumin Level 4.7 g/dL (3.5-5.0); Alkaline Phosphatase 76 U/L (39-117); Anion Gap 15 (12-20); Aspartate Amino Transferase 24 U/L (5-37); Blood Urea Nitrogen 31 mg/dL (9-16); Calcium 9.3 mg/dL (8.4-10.2); Carbon Dioxide 24 mmol/L (22-29); Chloride 103 mmol/L (96-108); Estimated Glomerular Filt Rate 55; Potassium 4.9 mmol/L (3.3-5.1); Sodium 137 mmol/L (135-145); Total Protein 7.9 g/dL (6.5-8.0)
== END 2025-07-28 08:22 | disposition home or self-care (01) ==
LOC: HO.HKASLDS 08:21
PROVIDERS: PCP Nurse Practitioner Family; Visit Provider Student in an Organized Health Care Education/Training Program
DX: M35.3 Polymyalgia rheumatica (principal); M17.0 Bilateral primary osteoarthritis of knee; Z79.899 Other long term (current) drug therapy; M25.512 Pain in left shoulder; M25.511 Pain in right shoulder; Z79.52 Long term (current) use of systemic steroids
CPT/HCPCS: 20610; 36415; 80053; 85025; 85652; 86140; 99212; J7326

== ENCOUNTER 2025-08-06 13:40 | Outpatient (AMB) | payer MEDICARE, SELFPAY ==
--- OUTSIDE RECORDS SUMMARY | 2025-07-31 23:59 | XMS_ITS | Continuity of Care Document ---
Author Organization [facility] Ren lt Address [address] [place] [address]- Care Team Providers Care Pretzel Packer Name Role Phone Chance MSW, Penelope Buckley Primary Care Physician [facility]): 07/[facility]25 - 07/31/25 [facility] Adult [address] [place] [address]- Encounter Type: Triage Allergies, Adverse Reactions, Alerts Substance Criticality Severity Reaction Reaction Severity Status HMG-CoA reductase inhibitors Resolved Lopid Active Welchol Active Zetia Active Immunizations Given and Recorded Vaccine Date Status Refusal Reason influenza virus vaccine, inactivated 1 05/29/24 Gi martha influenza virus vaccine, inactivated 2 07/18/23 Gi martha influenza virus vaccine, inactivated 3 06/28/22 Gi martha influenza virus vaccine, inactivated 06/19/21 Give n influenza virus vaccine, inactivated 06/01/20 Give n influenza virus vaccine, inactivated 07/08/19 Give n influenza virus vaccine, inactivated 06/27/18 Give n influenza virus vaccine, inactivated 08/30/14 Give n influenza virus vaccine, inactivated 07/29/13 Give n influenza virus vaccine, inactivated 05/18/11 Give n zoster vaccine, inactivated 01/29/24 Recorded zoster vaccine, inactivated 09/23/23 Recorded RSV vaccine preF3, recombinant 09/23/23 Recorded SARS-CoV-2(COVID-19)mRNA-LNP vac([id number]) 09/23/23 Recorded pneumococcal 20-valent conjugate vaccine 4 12/27/22 Given tetanus-diphtheria toxoids (Td) 5 06/28/22 Given tetanus-diphtheria toxoids (Td) 08/30/09 Given SARS-CoV-2 mRNA ([id number]) vax 6 01/17/22 Given SARS-CoV-2 (COVID-19) mRNA BNT-162b2 vac 05/24/21 Recorded SARS-CoV-2 (COVID-19) mRNA BNT-162b2 vac 10/19/20 Given SARS-CoV-2 (COVID-19) mRNA BNT-162b2 vac 09/28/20 Given Influenza Virus Vaccine (oldterm) 7 07/18/16 Given Influenza Virus Vaccine (oldterm) 06/10/08 Given Influenza Virus Vaccine (oldterm) 8 07/09/06 Given pneumococcal 13-valent vaccine 08/30/14 Given Fluarix (oldterm) 06/20/12 Given FluLaval (oldterm) 06/27/10 Given Hepatitis B Vaccine (old term) 09/13/09 Given Hepatitis B Vaccine (old term) 04/06/08 Given Hepatitis B Vaccine (old term) 10/03/07 Given Hepatitis A Vaccine (oldterm) 09/13/09 Given Hepatitis A Vaccine (oldterm) 04/06/08 Given Hepatitis A Vaccine (oldterm) 10/03/07 Given Influenza Inactive (IM) (oldterm) 08/30/09 Given Influenza Inactive (IM) (oldterm) 06/30/07 Given Pneumococcal Vaccine (oldterm) 9 12/05/99 Given Tetanus Toxoid Vaccine (oldterm) 08/19/99 Given 1Result Comment: [id number] 2Result Comment: [id number] Checklist completed 3Result Comment: [facility]-[id number] right upper deltoid 4Result Comment: [id number] 5Result Comment: [facility]-[id number] right lower deltoid 6Result Comment: [facility]-[id number] 7Admin Note: declined 8Admin Note: GIVEN IN [facility]INIC [facility] 9Admin Note: historical data Medications albuterol 0.083% inhalation solution 3 mL = 2.5 mg, Inhalation, Every 6 hours, PRN for wheezing/shortness of breath, ICD-10 Asthma J45.909, # 60 each, 0 Refills, Maintenance, 11/28/21 11:42:00 AM EDT, Solution, [facility], Partial fill upon patient request if the prescription is for a schedule II opioid drug., 177.8, cm, 06/26/21 15:59:00 EST, Height Start Date: 11/28/21 Status: Ordered Medication Dispense Status: Completed Quantity: 60.0 Unit: each Total Allowed Fills: 1 Fills Dispensed: 0 atorvastatin 40 mg oral tablet 1 tablet, By Mouth, Daily, # 90 tablet, 1 Refills, Maintenance, 03/10/25 6:51:00 PM EDT, [facility], 173, cm, 02/08/25 10:26:00 EDT, Height Start Date: 03/10/25 Status: Ordered Medication Dispense Status: Completed Quantity: 90.0 Unit: tablet Total Allowed Fills: 1 Fills Dispensed: 0 benzonatate 100 mg oral capsule 1 capsule = 100 mg, By Mouth, 3 times a day, PRN as needed for cough, for 7 days, # 21 capsule, 0 Refills, Acute 08/06/25 10:47:00 AM EST, 07/30/25 10:47:00 AM EST, Capsule, [facility], 173, cm, 07/09/25 12:45:00 EST, Height Start Date: 07/30/25 Stop Date: 08/06/25 Status: Ordered Medication Dispense Status: Completed Quantity: 21.0 Unit: capsule Total Allowed Fills: 1 Fills Dispensed: 0 cetirizine 10 mg oral tablet 1 tablet = 10 mg, By Mouth, Daily, PRN as needed for allergy symptoms, # 90 tablet, 0 Refills, Maintenance, 07/18/23 8:40:00 AM EST, Tablet, [facility], 173, cm, 07/18/23 8:02:00 EST, Height Start Date: 07/18/23 Stop Date: 10/16/23 Status: Ordered Medication Dispense Status: Completed Quantity: 90.0 Unit: tablet Total Allowed Fills: 1 Fills Dispensed: 0 Colace sodium 100 mg oral capsule 200 mg, 2, capsule, By Mouth, 2 times a day, PRN, # 360 capsule, Refills 1, Tot. Refills 1, Maintenance, for constipation, 01/06/25 9:54:00 AM EDT, Route to Pharmacy Electronically, [facility], 173, cm, 01/06/25 9:26:00 EDT, Height Start Date: 01/06/25 Stop Date: 07/05/25 Status: Ordered Medication Dispense Status: Completed Quantity: 360.0 Unit: capsule Total Allowed Fills: 2 Fills Dispensed: 0 Combivent Respimat 20 mcg-100 mcg/inh inhalation aerosol 1 puffs, Inhalation, 4 times a day, PRN NEEDED FOR WHEEZING/SHORTNESS OF BREATH, # 4 Gm, 5 Refills, Maintenance, 04/09/25 10:48:00 AM EDT, [facility], 30, 1 puffs Inhalation 4 times a day,PRN: NEEDED FOR WHEEZING/SHORTNESS OF BREATH, 173, cm, 04/09/25 10:20:00 EDT, Height Start Date: 04/09/25 Status: Ordered Medication Dispense Status: Completed Quantity: 4.0 Unit: g Total Allowed Fills: 6 Fills Dispensed: 0 fluticasone 50 mcg/inh nasal spray See Instructions, USE 2 SPRAYS IN EACH NOSTRIL EVERY DAY; USE OPPOSITE HAND FOR EACH NOSTRIL., # 16Gm, 5 Refills, Maintenance, 04/09/25 10:48:00 AM EDT, [facility], 30, USE 2 SPRAYS IN EACH NOSTRIL EVERY DAY; USE OPPOSITE HAND FOR EACH NOSTRIL., 173, cm, 04/09/25 10:20:00 EDT, Height Start Date: 04/09/25 Status: Ordered Medication Dispense Status: Completed Quantity: 16.0 Unit: g Total Allowed Fills: 6 Fills Dispensed: 0 Freestyle Lite Lancets See Instructions, # 100 each, Refills 5, Tot. Refills 5, Maintenance, Use to test blood sugar dailyDx: Diabetes type 2 (E11.9), 11/05/22 11:46:00 AM EDT, Compound, 177.8, cm, 11/05/22 9:48:00 EDT, Height Start Date: 11/05/22 Status: Ordered Medication Dispense Status: Completed Quantity: 100.0 Unit: each Total Allowed Fills: 6 Fills Dispensed: 0 Freestyle Lite Monitor See Instructions, # 1 each, Refills 0, Tot. Refills 0, Maintenance, Use to test blood sugar daily Dx: Diabetes type 2 (E11.9), 10/18/23 9:51:00 AM EST, Insurance does not cover the One Touch, Christine173, cm, 10/18/23 9:26:00 EST, Height Start Date: 10/18/23 Status: Ordered Medication Dispense Status: Completed Quantity: 1.0 Unit: each Total Allowed Fills: 1 Fills Dispensed: 0 Freestyle Lite Test Strips See Instructions, # 100 each, Refills 5, Tot. Refills 5, Maintenance, Use to test blood sugar dailyDx: Diabetes type 2 (E11.9), 10/18/23 9:51:00 AM EST, Compound, 173, cm, 10/18/23 9:26:00 EST, Height Start Date: 10/18/23 Status: Ordered Medication Dispense Status: Completed Quantity: 100.0 Unit: each Total Allowed Fills: 6 Fills Dispensed: 0 gabapentin 300 mg oral capsule See Instructions, TAKE ONE CAPSULE BY MOUTH DAILY AT BEDTIME, # 30 capsule, Refills 0, Maintenance,07/09/25 1:00:00 PM EST, Instructions Replace Required Details, Route to Pharmacy Electronically, [facility], 173, cm, 07/09/25 12:45:00 EST, Height Start Date: 07/09/25 Status: Ordered Medication Dispense Status: Completed Quantity: 30.0 Unit: capsule Total Allowed Fills: 1 Fills Dispensed: 0 Jardiance 25 mg oral tablet 1 tablet = 25 mg, By Mouth, Daily in AM, # 90 tablet, 1 Refills, Maintenance, 05/06/25 7:19:00 AM EDT, Tablet, [facility], 173, cm, 04/09/25 10:20:00 EDT, Height Start Date: 05/06/25 Stop Date: 11/02/25 Status: Ordered Medication Dispense Status: Completed Quantity: 90.0 Unit: tablet Total Allowed Fills: 2 Fills Dispensed: 0 metFORMIN 500 mg oral tablet 2 tablet, By Mouth, 2 times a day, # 360 tablet, 1 Refills, Maintenance, 07/01/25 8:18:00 AM EST, [facility], 173, cm, 05/11/25 11:26:00 EDT, Height Start Date: 07/01/25 Status: Ordered Medication Dispense Status: Completed Quantity: 360.0 Unit: tablet Total Allowed Fills: 2 Fills Dispensed: 0 omeprazole 20 mg oral enteric coated capsule 1 capsule = 20 mg, By Mouth, Daily, for 30 days, # 30 capsule, 0 Refills, Acute 08/08/25 12:56:00 PM EST, 07/09/25 12:56:00 PM [facility], [facility], 173, cm, 07/09/25 12:45:00 EST, Height Start Date: 07/09/25 Stop Date: 08/08/25 Status: Ordered Medication Dispense Status: Completed Quantity: 30.0 Unit: capsule Total Allowed Fills: 1 Fills Dispensed: 0 PredniSONE = 5 mg, By Mouth, Daily, 0 Refills, Maintenance, 10/28/24 8:32:00 PM EDT, Partial fill upon patient request if the prescription is for a schedule II opioid drug. Start Date: 10/28/24 Status: Ordered Medication Dispense Status: Completed Total Allowed Fills: 1 Fills Dispensed: 0 traMADol 50 mg oral tablet 2 tablet = 100 mg, By Mouth, Every 6 hours, PRN SEVRE PAIN, # 240 tablet, 0 Refills, Maintenance, 07/01/25 12:46:00 PM EST, [facility], 173, cm, 05/11/25 11:26:00 EDT, Height Start Date: 07/01/25 Status: Ordered Medication Dispense Status: Completed Quantity: 240.0 Unit: tablet Total Allowed Fills: 1 Fills Dispensed: 0 Trelegy Ellipta 200 mcg-62.5 mcg-25 mcg/inh inhalation powder See Instructions, INHALE 1 PUFF BY INHALATION DAILY; AT THE SAME TIME EVERY DAY., # 60 each, 10 Refills, Maintenance, 08/31/24 8:04:00 AM EST, [facility], 30, INHALE 1 PUFF BY INHALATION DAILY; AT THE SAME TIME EVERY DAY., 173, cm, 08/31/24 7:26:00 EST, Height Start Date: 08/31/24 Status: Ordered Medication Dispense Status: Completed Quantity: 60.0 Unit: each Total Allowed Fills: 11 Fills Dispensed: 0 Trulicity Pen 0.75 mg/0.5 mL subcutaneous solution = 0.75 mg, Subcutaneous Injection, Every week, for 30 days, replaces ozempic, # 2 mL, 1 Refills, Acute 09/07/25 1:07:00 PM EST, 07/09/25 1:07:00 PM EST, Solution, [facility], 173, cm,07/09/25 12:45:00 EST, Height Start Date: 07/09/25 Stop Date: 09/07/25 Status: Ordered Medication Dispense Status: Completed Quantity: 2.0 Unit: mL Total Allowed Fills: 2 Fills Dispensed: 0 valsartan 160 mg oral tablet 1, tablet, By Mouth, Daily, # 90 tablet, Refills 1, Tot. Refills 1, Maintenance, 04/09/25 10:48:00 AM EDT, Route to Pharmacy Electronically, [facility], 173, cm, 04/09/25 10:20:00 EDT, Height Start Date: 04/09/25 Status: Ordered Medication Dispense Status: Completed Quantity: 90.0 Unit: tablet Total Allowed Fills: 2 Fills Dispensed: 0 Vitamin B12 1000 mcg oral tablet 1 tablet = 1,000 mcg, By Mouth, Daily, # 90 tablet, 11 Refills, Maintenance, 11/30/20 10:43:00 AM EDT, Tablet, Partial fill upon patient request if the prescription is for a schedule II opioid drug. Start Date: 11/30/20 Status: Ordered Medication Dispense Status: Completed Quantity: 90.0 Unit: tablet Total Allowed Fills: 12 Fills Dispensed: 0 Problem List Condition Confirmation Course Effective Dates Status H ealth Status Informant Anemia due to chronic kidney disease 1, 2, 3, 4 Confirmed Active Anxiety/insomnia Confirmed 06/28/22 Active Glenohumeral arthritis Confirmed Active Junctional rhythm Confirmed Active Benign Essential Hypertension Confirmed Active Osteoarthritis of both knees 5 Confirmed Active Carpal tunnel syndrome 6 Confirmed Active Chronic back pain 7 Confirmed Active CKD (chronic kidney disease) stage 2, GFR 60-89 ml/min Confirmed Active Chronic rhinitis Confirmed Active Constipation Confirmed Active Low vitamin B12 level Confirmed 11/29/20 Active Osteoarthritis of both hands Confirmed Active Disorder of rotator cuff of both shoulders 8 Confirmed Active Ex-cigarette smoker 9 Confirmed Active Excessive caffeine intake Confirmed Active Familial hyperlipidemia 10, 11, 12 Confirmed Active Fatty liver 13, 14, 15 Confirmed Active Glaucoma suspect Confirmed Active Hearing impaired Confirmed Active Insomnia Confirmed Active LVH (left ventricular hypertrophy) 16 Confirmed Active Aortic valve stenosis, moderate 17, 18, 19 Confirmed Active Asthma, moderate persistent 20, 21 Confirmed Active Obese class I Confirmed Active Onychomycosis Confirmed Active Osteoarthritis of both knees Confirmed Active Polymyalgia rheumatica Confirmed Active Polyp of Nasal Cavity 22, 23 Confirmed Active Restless leg Confirmed Active Tubulovillous adenoma of rectum- declines further colonoscopies 24 Confirmed 02/27/12 Active 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 25, 26, 27 Confirmed Active Umbilical hernia 28 Confirmed Active One undescended testicle left;refuses urology advised cancer risk Confirmed Active 1Per hematology no etiology as it is mild recommend monitoring 2normal methymalonic acid 3normal b12,spep,ferritin,iron 4monitor mild had colonoscopy 5RT knee;injections 6had sx rt;lft pending 7years had disc in past per other MD 8seeing ortho 9adviosed LDCT scan lungt;cancer screen;declined 10compliant now 11lDL not at goal;patient not using crestor;to resume 12is intolerant of statins,lopid,zetia,welchol; refuses to try again; aware of risk ,disabilkityfrom ND,stroke 13will need HEP a,B series 14counseled; no alcohol; he refuses;aware risks liver failure, 15per biopsy 16echo 17mild 2014 18mild aortic stenosis 19refer ECHO 20immunothrpay 21chronic,plan 22repeat sx 2011 23regrew after surgery;refuses ent again 24needs repeat colonoscopy in 3 years ie 2014 25compliant now 26rerferred endocrinology re lipid,A1c targets,medications etc 27advised to test sugars home,diet,see Opythalmology,;he refuses;advised of possible risks such as ,disability from blindness,kidney failure,ND,stroke among others;he is aware;still refusess 28referred to surgeon;refuses;aware of risk bowel obstruction, bowel,disability, Social History Social History Type Response Smoking Status Former smoker; Type: Cigarettes; Number of years: 45; Total pack years: 45; Started at age: 14; Stopped at age: 59; entered on: 03/03/14 Sex Sex Representation Male (finding) Patient Care team information Care Team Personnel Name: Penelope Fletcher NP Position: S PCO Associate Professional Member Role: PCP Address: [address] [place] [address]- Telecom: Care Team Related Persons Name: FITO MELARA Insurance Providers Guarantor name: KORY MELARA Health Plan Information #: 1 Payer: MEDICARE B Payer Identifier: NA Member Number: [id number] Group Number: NA Subscriber Identifier: NA Relationship to Subscriber: self Coverage Type: NA Coverage Verification Date: NA Telecom: NA Address: NA Health Plan Information #: 2 Payer: MEDEX SECONDARY ONLY Payer Identifier: NA Member Number: [id number] Group Number: NA Subscriber Identifier: NA Relationship to Subscriber: self Coverage Type: Medicare Other Coverage Verification Date: NA Telecom: NA Address:
--- OUTSIDE RECORDS SUMMARY | 2025-07-31 23:59 | XMS_ITS | Continuity of Care Document ---
Author Organization [facility] Ren [facility] Address [address] [place] [address]- Care Team Providers Care Pipe Or Steam Fitter Furnace Installer Name Role Phone Chance RETURNS SUPERVISOR, Penelope Buckley Primary Care Physician [phone] [facility]counter [facility]25 - 07/31/25 [facility] Adult [address] [place] [address]- Encounter Type: Triage Allergies, Adverse Reactions, Alerts [...] RSV vaccine preF3, recombinant 09/23/23 Recorded SARS-CoV-2(COVID-19)mRNA-LNP vac([id number]) 09/23/23 Recorded pneumococcal 20-valent conjugate vaccine 4 12/27/22 Given tetanus-diphtheria toxoids (Td) 5 06/28/22 Given tetanus-diphtheria toxoids (Td) 08/30/09 Given SARS-CoV-2 mRNA ([id number]) vax 6 01/17/22 Given SARS-CoV-2 (COVID-19) mRNA [...] Toxoid Vaccine (oldterm) 08/19/99 Given 1Result Comment: [id number] 2Result Comment: [id number] Checklist completed 3Result Comment: [facility]-[id number] right upper deltoid 4Result Comment: [id number] 5Result Comment: [facility]-[id number] right lower deltoid 6Result Comment: [facility]-[id number] 7Admin Note: declined 8Admin Note: GIVEN IN [...] Maintenance, 03/10/25 6:51:00 PM EDT, [facility], 173, cm, 02/08/25 10:26:00 EDT, [...] 07/30/25 10:47:00 AM EST, Capsule, [facility], 173, cm, 07/09/25 12:45:00 EST, Height Start Date: 07/30/25 Stop Date: 08/06/25 Status: Ordered Medication Dispense Status: Completed Quantity: 21.0 Unit: capsule Total Allowed Fills: 1 Fills Dispensed: 0 cetirizine 10 mg oral tablet 1 tablet = 10 mg, By Mouth, Daily, PRN as needed for allergy symptoms, # 90 tablet, 0 Refills, Maintenance, 07/18/23 8:40:00 AM EST, Tablet, [facility], 173, cm, 07/18/23 8:02:00 EST, [...] EDT, Route to Pharmacy Electronically, [facility], 173, cm, 01/06/25 9:26:00 EDT, Height Start Date: 01/06/25 Stop Date: 07/05/25 Status: Ordered Medication Dispense Status: Completed Quantity: 360.0 Unit: capsule Total Allowed Fills: 2 Fills Dispensed: 0 Combivent Respimat 20 mcg-100 mcg/inh inhalation aerosol 1 puffs, Inhalation, 4 times a day, PRN NEEDED FOR WHEEZING/SHORTNESS OF BREATH, # 4 Gm, 5 Refills, Maintenance, 04/09/25 10:48:00 AM EDT, [facility], 30, 1 puffs Inhalation 4 [...] Maintenance, 04/09/25 10:48:00 AM EDT, [facility], 30, USE 2 SPRAYS IN [...] Replace Required Details, Route to Pharmacy Electronically, [email or web address], 173, cm, 07/09/25 12:45:00 EST, Height Start Date: 07/09/25 Status: Ordered Medication Dispense Status: Completed Quantity: 30.0 Unit: capsule Total Allowed Fills: 1 Fills Dispensed: 0 Jardiance 25 mg oral tablet 1 tablet = 25 mg, By Mouth, Daily in AM, # 90 tablet, 1 Refills, Maintenance, 05/06/25 7:19:00 AM EDT, Tablet, [facility], 173, cm, 04/09/25 10:20:00 EDT, Height Start Date: 05/06/25 Stop Date: 11/02/25 Status: Ordered Medication Dispense Status: Completed Quantity: 90.0 Unit: tablet Total Allowed Fills: 2 Fills Dispensed: 0 metFORMIN 500 mg oral tablet 2 tablet, By Mouth, 2 times a day, # 360 tablet, 1 Refills, Maintenance, 07/01/25 8:18:00 AM EST, [facility], 173, cm, 05/11/25 11:26:00 EDT, Height Start Date: 07/01/25 Status: Ordered Medication Dispense Status: Completed Quantity: 360.0 Unit: tablet Total Allowed Fills: 2 Fills Dispensed: 0 omeprazole 20 mg oral enteric coated capsule 1 capsule = 20 mg, By Mouth, Daily, for 30 days, # 30 capsule, 0 Refills, Acute 08/08/25 12:56:00 PM EST, 07/09/25 12:56:00 PM EST, [facility], 173, cm, 07/09/25 12:45:00 EST, [...] 0 Refills, Maintenance, 07/01/25 12:46:00 PM EST, [email or web address], 173, cm, 05/11/25 11:26:00 EDT, Height Start Date: 07/01/25 Status: Ordered Medication Dispense Status: Completed Quantity: 240.0 Unit: tablet Total Allowed Fills: 1 Fills Dispensed: 0 Trelegy Ellipta 200 mcg-62.5 mcg-25 mcg/inh inhalation powder See Instructions, INHALE 1 PUFF BY INHALATION DAILY; AT THE SAME TIME EVERY DAY., # 60 each, 10 Refills, Maintenance, 08/31/24 8:04:00 AM EST, [email or web address], 30, INHALE 1 PUFF BY [...] EDT, Route to Pharmacy Electronically, [facility], 173, cm, 04/09/25 10:20:00 EDT, [...] to try again; aware of risk ,disabilkityfrom ID,stroke 13will need HEP a,B series 14counseled; no [...] possible risks such as ,disability from blindness,kidney failure,ID,stroke among others;he is aware;still refusess 28referred to [...] PCO Associate Professional Member Role: PCP Address: [address] [place] [address]- Telecom: Care Team Related Persons Name: FITO MELARA Insurance Providers Guarantor name: KORY MELARA Health Plan Information #: 1 Payer: MEDICARE B Payer Identifier: NA Member Number: [id number] Group Number: NA Subscriber Identifier: NA Relationship to Subscriber: self Coverage Type: NA Coverage Verification Date: NA Telecom: NA Address: NA Health Plan Information #: 2 Payer: MEDEX SECONDARY ONLY Payer Identifier: NA Member Number: [id number] Group Number: NA Subscriber Identifier: NA Relationship to Subscriber: self Coverage Type: Medicare Other Coverage Verification Date: NA Telecom: NA Address:
--- NOTE | 2025-08-06 14:04 | A.OFFVIS_ITS ---
Vital Signs 08/06/25 14:09 Height 5 ft 11 in Weight 194 lb 3.636 oz BMI 27.1 BP 124/62 Blood Pressure Location Lt brachial Position Sitting Pulse 95 Pulse Source Pulse Oximeter Pulse Oximetry (%) 96 Oxygen Delivery Method Room Air Intake Visit Reasons: follow up/ per MD req Intake Note: Patient presents for RT knee pain urgent visit. Remelt Furnace Expediter Required: No Information Interpreted: non-clinical & clinical Accompanied by: Spouse Allergies No Known Allergies Allergy (Verified 08/06/25 14:09) HPI Comments Details: Patient is an 85-year-old male with hypertension, diabetes, hyperlipidemia, PMR and polyarticular osteoarthritis here today for Gel One injections Interval History: Patient last seen 07/28/2025 - On prednisone 3mg - Tapered faster than advised because they did not fully understand the instructions - No worsening sx - Complaining of bilateral knee pain, right > left - Also bilateral shoulder pain - Received bilateral gel on injections Today - Urgent visit for right knee pain Rheumatologic History: Patient establish care 06/2024. Current working diagnosis of PMR based on elevated ESR/CRP, weight loss, fatigue and shoulder stiffness. 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 Polyp of nasal cavity Osteoarthritis of both knees Osteoarthritis of both hands Onychomycosis Undescended left testicle Left ventricular hypertrophy Low vitamin B12 level Insomnia Hard of hearing Glenohumeral arthritis Glaucoma Fatty liver Hyperlipidemia Disorder of rotator cuff of both shoulders CKD stage G2/A2, GFR 60-89 and albumin creatinine ratio 30-299 mg/g CKD (chronic kidney disease) Chronic rhinitis Chronic back pain Chronic anemia Carpal tunnel syndrome Benign essential HTN Asthma Aortic valve stenosis Anxiety Family History Father History of arthritis Social History Household Members: Spouse Housing: House Alcohol intake: former Patient Tobacco Use Status: Former Tobacco user Years Smoked: 30 Advance Directives Date on File: 02/22/25 Review of Systems Narrative as above Physical Exam Exam Exam: Vital signs reviewed Physical Examination CONSTITUITIONAL Patient alert and cooperative. Well appearing and in no apparent painful distress MSK Knees * Right knee: No swelling noted. TTP of the knee joint line. No TTP of pes anserine bursa * Left knee: No swelling noted. No TTP of the knee joint line. No TTP of pes anserine bursa. Vital Signs: Last Vital Signs Pulse 95 08/06/25 14:09 BP 124/62 08/06/25 14:09 Pulse Ox 96 08/06/25 14:09 Oxygen Delivery Method Room Air 08/06/25 14:09 BMI result Body Mass Index 27.1 Results Reviewed Results Reviewed: no relevant labs to review Assessment & Plan Assessment & Plan (1) Osteoarthritis of both knees: Code(s): M17.0 - Bilateral primary osteoarthritis of knee Category: Medical Qualifiers: Osteoarthritis type: primary Qualified Code(s): M17.0 - Bilateral primary osteoarthritis of knee Plan: #OA bilateral knees Patient is an 85-year-old male with bilateral knee OA here today for urgent visit for right knee pain post gel 1 injections on 07/28 No swelling, erythema or redness concerning for infection Mild tenderness to palpation of the joint. Likely postinflammatory action of the gel Status post steroid injection today to the right knee Plan - S/p steroid injection to the right knee Plan Procedure only Coding Level of Care Code Procedure Only Diagnoses Primary osteoarthritis of both knees M17.0 Osteoarthritis type: primary
[2025-08-06 14:09] VITALS: BP 124/62; PULSE 95; O2SAT 96; BMI 27.1
--- OUTSIDE RECORDS SUMMARY | 2025-08-06 15:23 | XMS_ITS | Patient Health Record ---
Author Organization [facility] Address [address] [place] [address] Care Team Providers Care Sql Etl Developer Name Role Phone Inessa MCINTOSH, [place] Primary Care Provider Emile Rebolledo Unavailable [phone] Reason For Referral No Information Medications Medication [...] Status W/U Status Risk Notes Problem Onychomycosis (682142046) Onychomycosis (110.1) Active confirmed Problem Pain in limb (28744321) Pain in Limb (729.5) Active confirmed Problem Disorder of joint of ankle and/or foot (478496251) Arthritis - Degenerative (719.97) Active confirmed Problem Hammer toe (928017472) Hammer toe (735.4) Active confirmed Problem Pain in limb (59749687) Pain in Limb (729.5) Active confirmed Problem 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 Problem Keratoma (03672709) 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.1) Active confirmed Plan Of Treatment Pending Test Test Name Order Date X ray : Foot, right 2V 10/06/2014 [id number] NAIL, 6 OR MORE 10/06/2014 [id number] SKIN LESIONS, OVER 4 10/06/19 15 Insurance Providers Payer Name Payer Address Payer Phone Subscriber Number Group Number Insured Name Patient Relationship to Insured Coverage Start Date Coverage End Date [facility] [address] [facility] [place] blevins [phone] [id number] Scottie Beth Self - patient is the insured Medical (General) History Medical History History ICD Code Arthritis asthma chronic sinusitis
== END 2025-08-06 14:58 | disposition home or self-care (01) ==
LOC: HO.RHES 13:40
PROVIDERS: PCP Nurse Practitioner Family; Visit Provider Student in an Organized Health Care Education/Training Program
DX: M17.11 Unilateral primary osteoarthritis, right knee (principal)
CPT/HCPCS: 20610

== ENCOUNTER → 2025-08-06 13:40 | Outpatient (BNVA) | payer MEDICARE, SELFPAY | PROVIDERS: PCP Nurse Practitioner Family; Visit Provider Student in an Organized Health Care Education/Training Program | DX: M25.561 Pain in right knee (principal); M17.0 Bilateral primary osteoarthritis of knee | CPT/HCPCS: 20610; J2003; J3301 ==